=== PATIENT | male | born 1995 | race Caucasian/White ===

== ENCOUNTER 2020-08-18 14:15 | Outpatient (REF) | payer MEDICAID, SELFPAY ==
[2020-08-18 16:24] LABS: Alanine Aminotransferase 14 U/L (0-40); Albumin Level 4.7 g/dL (3.5-5.0); Alkaline Phosphatase 55 U/L (39-117); Anion Gap 19 (12-20); Aspartate Amino Transferase 14 U/L (5-37); Bilirubin Total 0.6 mg/dL (0.0-1.0); Blood Urea Nitrogen 13 mg/dL (9-16); Carbon Dioxide 26 mmol/L (22-29); Chloride 102 mmol/L (96-108); Estimated Glomerular Filt Rate > 60; Glucose Random 91 mg/dL (60-115); Potassium 4.2 mmol/L (3.3-5.1); Sodium 143 mmol/L (135-145); Total Protein 7.4 g/dL (6.5-8.0)
[2020-08-18 16:31] LABS: Calcium 11.3 mg/dL (8.4-10.2)
[2020-08-18 16:43] LABS: Vitamin D 25-OH Total 44.1 ng/mL (>30)
[2020-08-19 11:36] LABS: Calcium, Ionized 5.7 mg/dL (4.8-5.6)
[2020-08-19 13:42] LABS: PTHI 4 pg/mL (14-64)
[2020-08-21 19:27] LABS: Alkaline Phosphatase Bone 7.9 mcg/L (8.4-29.3)
[2020-08-21 21:47] LABS: Prot Elec - Albumin 4.5 g/dL (3.8-4.8); Prot Elec - Alpha1 0.4 g/dL (0.2-0.3); Prot Elec - Alpha2 0.8 g/dL (0.5-0.9); Prot Elec - Beta 1 0.4 g/dL (0.4-0.6); Prot Elec - Beta 2 0.3 g/dL (0.2-0.5); Prot Elec - Total Protein 7.4 g/dL (6.1-8.1)
== END 2020-08-18 14:16 | disposition home or self-care (01) ==
LOC: HO.LAB 14:15
PROVIDERS: PCP Internal Medicine Geriatric Medicine; Visit Provider Internal Medicine
DX: M81.0 Age-related osteoporosis without current pathological fracture (principal); G80.8 Other cerebral palsy; G40.909 Epilepsy, unspecified, not intractable, without status epilepticus; E55.9 Vitamin D deficiency, unspecified; Z88.1 Allergy status to other antibiotic agents; Z99.3 Dependence on wheelchair
CPT/HCPCS: 36415; 80053; 82306; 82330; 83970; 84075; 84100; 84155; 84165; 99202

== ENCOUNTER → 2020-11-07 13:31 | Outpatient (BNVA) | payer MEDICAID, SELFPAY | PROVIDERS: Visit Provider Internal Medicine ==

== ENCOUNTER 2020-12-14 11:42 | Outpatient (REF) | payer MEDICAID, SELFPAY ==
[2020-12-14 13:08] LABS: Alanine Aminotransferase 18 U/L (0-40); Albumin Level 4.4 g/dL (3.5-5.0); Alkaline Phosphatase 49 U/L (39-117); Anion Gap 18 (12-20); Aspartate Amino Transferase 15 U/L (5-37); Bilirubin Total 0.4 mg/dL (0.0-1.0); Blood Urea Nitrogen 18 mg/dL (9-16); Carbon Dioxide 23 mmol/L (22-29); Chloride 110 mmol/L (96-108); Estimated Glomerular Filt Rate > 60; Glucose Random 91 mg/dL (60-115); Phosphorus 3.1 mg/dL (2.7-4.5); Potassium 4.3 mmol/L (3.3-5.1); Sodium 147 mmol/L (135-145); Total Protein 7.3 g/dL (6.5-8.0)
[2020-12-14 13:16] LABS: Calcium 12.4 mg/dL (8.4-10.2)
[2020-12-14 13:23] LABS: Vitamin D 25-OH Total 37.4 ng/mL (>30)
[2020-12-15 10:36] LABS: Calcium (PTHI) 12.1 mg/dL (8.6-10.3); PTHI 13 pg/mL (14-64)
[2020-12-19 10:52] LABS: Vitamin A 94 mcg/dL (38-98)
[2020-12-19 23:17] LABS: Prot Elec - Albumin 4.4 g/dL (3.8-4.8); Prot Elec - Alpha1 0.4 g/dL (0.2-0.3); Prot Elec - Alpha2 0.8 g/dL (0.5-0.9); Prot Elec - Beta 1 0.4 g/dL (0.4-0.6); Prot Elec - Beta 2 0.3 g/dL (0.2-0.5); Prot Elec - Total Protein 7.2 g/dL (6.1-8.1)
[2020-12-21 01:31] LABS: VITAMIN D (1,25 OH) D3 <8 pg/mL; Vit D (1,25-Dihydroxy) Total <8 pg/mL (18-72); Vitamin D (1,25 OH) D2 <8 pg/mL
[2020-12-26 20:01] LABS: Parathyroid Hormone Related Pr 13 pg/mL (11-20)
== END 2020-12-14 11:43 | disposition home or self-care (01) ==
LOC: HO.LAB 11:42
PROVIDERS: Visit Provider Internal Medicine
DX: M81.0 Age-related osteoporosis without current pathological fracture (principal); E83.52 Hypercalcemia
CPT/HCPCS: 36415; 80053; 82306; 82652; 83519; 83970; 84100; 84165; 84590

== ENCOUNTER → 2021-01-18 11:43 | Outpatient (BNVA) | payer MEDICAID, SELFPAY | PROVIDERS: Visit Provider Internal Medicine ==

== ENCOUNTER 2021-01-18 12:22 | Inpatient (IN) | payer MEDICAID, SELFPAY ==
[2021-01-18 12:51] VITALS: BP 136/99; PULSE 115; RESP 18; TEMP 36.6; O2SAT 98; BMI 24.4
--- NOTE | 2021-01-18 14:57 | ED.RECABL ---
HPI - Recheck/Abnormal Lab/Rx General Chief Complaint: Recheck/Abnormal Lab/Rx Stated Complaint: abnormal lab, dehydrated Time Seen by Provider: 01/18/21 14:06 Source: family Mode of arrival: ambulatory Limitations: other (all history from notes and dad) History of Present Illness complaint: abnormal lab Initial visit (ago): day(s) (12/14/20) Initial visit for: other (regular visit) Returns today for: called because of abnormal lab/test (calcium 12.4 though steadily increasing since 2018) Symptoms since prior visit: no new symptoms Context: called for abnormal lab result Associated symptoms: none Related Data Home Medications Medication Instructions Recorded Confirmed cholecalciferol (vitamin D3) 50 50 mcg PO DAILY 08/18/20 11/07/20 mcg (2,000 unit) capsule Previous Rx's Medication Instructions Recorded denosumab 60 mg/mL subcutaneous 60 mg SUBCUT [id number] 1 Days #1 ml 11/09/20 syringe Allergies Allergy/AdvReac Type Severity Reaction Status Date / Time amoxicillin [AMOXICILLIN] Allergy Unknown RASH Verified 11/07/20 13:41 Review of Systems Review of Systems: ROS unable to be obtained due to patient is nonverbal - all history from father and records [facility] Past Medical History Attestation statement: The following information was validated with the patient. Medical History Cerebral palsy Hypercalcemia Osteoporosis Quadriplegia Seizure disorder Vitamin D deficiency Surgical History Gastrointestinal tube present History of back surgery Presence of intrathecal baclofen pump Family History Family History Mother Anemia Father No problems noted. Social History Social History Alcohol intake: never Patient Tobacco Use Status: Never used Tobacco Advance Directives: No Advance Directives Information Provided: No Physical Exam Vital Signs: Vital Signs: Last Vital Signs Temp 97.8 F 01/18/21 12:51 Pulse 115 H 01/18/21 12:51 Resp 18 01/18/21 12:51 BP 136/99 H 01/18/21 12:51 Pulse Ox 98 01/18/21 12:51 Body Mass Index 24.4 Appearance: contracted, non-verbal at his baseline per father No acute distress. Eyes: Pupils equal, round and reactive to light. ENT: Pharynx dry MM Neck: Normal inspection. Neck supple. CVS: tachycardic heart rate and rhythm. Pulses normal. Respiratory: No respiratory distress. Breath sounds normal. Abdomen: Soft feeding tube site c/d/i Skin: Skin warm and dry. pale skin color. Extremities: No lower extremity edema. Neuro: at his baseline per father, contracted, nonverbal, responds to sound and tactile stimuli Course Course Course Narrative: will need admission for dehydration - does not get any free water per father only keto fluids mom aware of admit, plans to bring his feedings MDM - Recheck/Abnormal Lab/Rx MDM Narrative Medical decision making narrative: 25 yo male with hypercalcemia, epilepsy with daily seizures, cerebal palsy with spasticity - nonverbal and feeding tube dependent - on ketogenic diet through [facility] was sent by his oven stripper for dehydration and calcium of 12.4. The dad notes he only receives the special ketogenic diet and no free liquids and that he does not take anything by mouth. At this time will repeat labs and hydrate slow 2L over 2 hours. Dispo per repeat calcium. Lab Data Result diagrams: 01/18/21 15:45 01/18/21 15:45 Labs: Lab Results 01/18/21 01/18/21 01/18/21 Range/Units 15:45 15:45 15:45 WBC 7.6 (4.8-10.8) X10*3/uL RBC 5.03 (4.60-5.80) X10*6/uL Hgb 15.1 (14.0-18.0) g/dl Hct 47.8 (42.0-52.0) % MCV 95.0 (80.0-98.0) fL MCH 30.0 (27.0-33.0) pg MCHC 31.6 (31.0-36.0) g/dl RDW 14.7 (11.0-16.0) % Plt Count 235 (160-400) X10*3/uL MPV 11.4 (9.4-12.4) fL Immature Gran % (Auto) 0.4 (0.0-0.4) % Neut % (Auto) 66.6 (45-73) % Lymph % (Auto) 19.4 L (20-40) % [place] % (Auto) 10.8 (2-11) % Eos % (Auto) 2.4 (0-4) % Baso % (Auto) 0.4 (0-2) % Lymph # (Auto) 1.5 (1.2-4.9) X10*3/uL [place] # (Auto) 0.8 (0.1-1.2) X10*3/uL Eos # (Auto) 0.2 (0.0-0.4) X10*3/uL Baso # (Auto) 0.0 (0.0-0.2) X10*3/uL Abs Immat Gran (auto) 0.03 (0.00-0.03) X10*3/uL Absolute Neuts (auto) 5.05 (2.0-8.3) x10*3/uL Absolute Nucleated RBC 0.000 (0.0-0.012) X10*3/uL Nucleated RBC % (auto) 0.0 (0.0-0.2) /100WBC Sodium 150 H (135-145) mmol/L Potassium 4.2 (3.3-5.1) mmol/L Chloride 110 H (96-108) mmol/L Carbon Dioxide 26 (22-29) mmol/L Anion Gap 18 (12-20) BUN 15 (9-16) mg/dL Creatinine 0.80 (0.5-1.4) mg/dL Estim Creat Clear Calc 99.8 Estimated GFR > 60 Random Glucose 109 (60-115) mg/dL Calcium 12.9 H* (8.4-10.2) mg/dL Magnesium 1.7 (1.6-2.6) mg/dL Total Bilirubin 0.4 (0.0-1.0) mg/dL Direct Bilirubin 0.2 (0.0-0.5) mg/dL AST 15 (5-37) U/L ALT 15 (0-40) U/L Alkaline Phosphatase 47 (39-117) U/L Total Protein 7.6 (6.5-8.0) g/dL Albumin 4.7 (3.5-5.0) g/dL Lipase 22 (8-78) U/L COVID-19 (MANN) Negative (Negative) COVID-19 Clin Com See Note 01/18/21 Range/Units 15:45 WBC (4.8-10.8) X10*3/uL RBC (4.60-5.80) X10*6/uL Hgb (14.0-18.0) g/dl Hct (42.0-52.0) % MCV (80.0-98.0) fL MCH (27.0-33.0) pg MCHC (31.0-36.0) g/dl RDW (11.0-16.0) % Plt Count (160-400) X10*3/uL MPV (9.4-12.4) fL Immature Gran % (Auto) (0.0-0.4) % Neut % (Auto) (45-73) % Lymph % (Auto) (20-40) % [place] % (Auto) (2-11) % Eos % (Auto) (0-4) % Baso % (Auto) (0-2) % Lymph # (Auto) (1.2-4.9) X10*3/uL [place] # (Auto) (0.1-1.2) X10*3/uL Eos # (Auto) (0.0-0.4) X10*3/uL Baso # (Auto) (0.0-0.2) X10*3/uL Abs Immat Gran (auto) (0.00-0.03) X10*3/uL Absolute Neuts (auto) (2.0-8.3) x10*3/uL Absolute Nucleated RBC (0.0-0.012) X10*3/uL Nucleated RBC % (auto) (0.0-0.2) /100WBC Sodium (135-145) mmol/L Potassium (3.3-5.1) mmol/L Chloride (96-108) mmol/L Carbon Dioxide (22-29) mmol/L Anion Gap (12-20) BUN (9-16) mg/dL Creatinine (0.5-1.4) mg/dL Estim Creat Clear Calc Estimated GFR Random Glucose (60-115) mg/dL Calcium Cancelled (8.4-10.2) mg/dL Magnesium (1.6-2.6) mg/dL Total Bilirubin (0.0-1.0) mg/dL Direct Bilirubin (0.0-0.5) mg/dL AST (5-37) U/L ALT (0-40) U/L Alkaline Phosphatase (39-117) U/L Total Protein (6.5-8.0) g/dL Albumin (3.5-5.0) g/dL Lipase (8-78) U/L COVID-19 (MANN) (Negative) COVID-19 Clin Com Discharge Plan Discharge Clinical Impression: Hypercalcemia, Acute hypernatremia, Acute dehydration Patient Disposition: Admitted As Inpatient Prescriptions: No Action denosumab 60 mg/mL syringe 60 mg subcut [id number] 1 Days Qty: 1 RF: 2 cholecalciferol (vitamin D3) 50 mcg (2,000 unit) capsule 50 mcg PO DAILY RF: 0
[2021-01-18 15:52] LABS: MANUAL DIFF FLAG NO
[2021-01-18] MEDS: 0.9 % Sodium Chloride 1,000 ML 999 ML IVCONT (15:53)
[2021-01-18 15:56] LABS: Basophils Percent Auto 0.4 % (0-2); Eosinophils Absolute Auto 0.2 X10*3/uL (0.0-0.4); Eosinophils Percent Auto 2.4 % (0-4); Hematocrit 47.8 % (42.0-52.0); Hemoglobin 15.1 g/dl (14.0-18.0); Imm Gran Abs Auto 0.03 X10*3/uL (0.00-0.03); Imm Gran Pct Auto 0.4 % (0.0-0.4); Lymphocytes Absolute Auto 1.5 X10*3/uL (1.2-4.9); Lymphocytes Percent Auto 19.4 % (20-40); Mean Corpuscular HGB Conc 31.6 g/dl (31.0-36.0); Mean Platelet Volume 11.4 fL (9.4-12.4); Monocytes Absolute Auto 0.8 X10*3/uL (0.1-1.2); Monocytes Percent Auto 10.8 % (2-11); Neutrophils Absolute Auto 5.05 x10*3/uL (2.0-8.3); Neutrophils Percent Auto 66.6 % (45-73); Platelet Count 235 X10*3/uL (160-400); Red Blood Count 5.03 X10*6/uL (4.60-5.80); Red Cell Distribution Width 14.7 % (11.0-16.0); White Blood Count 7.6 X10*3/uL (4.8-10.8)
[2021-01-18 16:14] LABS: COVID-19 Test Negative (Negative)
[2021-01-18 16:39] LABS: Alanine Aminotransferase 15 U/L (0-40); Albumin Level 4.7 g/dL (3.5-5.0); Alkaline Phosphatase 47 U/L (39-117); Anion Gap 18 (12-20); Aspartate Amino Transferase 15 U/L (5-37); Bilirubin Direct 0.2 mg/dL (0.0-0.5); Bilirubin Total 0.4 mg/dL (0.0-1.0); Blood Urea Nitrogen 15 mg/dL (9-16); Calcium 12.9 mg/dL (8.4-10.2); Carbon Dioxide 26 mmol/L (22-29); Chloride 110 mmol/L (96-108); Creatinine Clr Calc Pharmacy 99.8; Estimated Glomerular Filt Rate > 60; Glucose Random 109 mg/dL (60-115); Lipase 22 U/L (8-78); Magnesium 1.7 mg/dL (1.6-2.6); Potassium 4.2 mmol/L (3.3-5.1); Sodium 150 mmol/L (135-145); Total Protein 7.6 g/dL (6.5-8.0)
[2021-01-18 17:56] VITALS: BP 137/96; PULSE 132; RESP 16; O2SAT 96
[2021-01-18 18:00] VITALS: BP 134/85; PULSE 136; RESP 15; O2SAT 96
--- NOTE | 2021-01-18 18:42 | PHA.MEDREC ---
Pharmacy Consult ? Medication Reconciliation Pharmacy has completed the medication reconciliation. nonfarm animal caretaker had a list of medications on his phone. Patient was have Ketovite infused, and has more with him. Lisa Pringle, FilipeD
[2021-01-18] MEDS: 0.9 % Sodium Chloride 1,000 ML 999 ML IV (20:49)
[2021-01-18 22:00] VITALS: BP 124/71; PULSE 134; RESP 18; TEMP 37.1; O2SAT 95
--- NOTE | 2021-01-18 22:48 | MHC.CM.PN ---
CM met with pt step-father and time study analyst [employer]OUS[employer] through [employer]. No IMM necessary. Pt is very well kept. Pt has C.P, quadriplegia, epilepsy. Pt is blind, non-verbal and has a g-tube for feeding. Pt guardian is his mother, Shari Davis ([phone]). Guardianship papers are not on file. No MOLST on file. Pt lives with his mother and step-father. Pt has 2 wheelchairs, hospital bed, handicapped bathroom accessible, андрей lift and van adaptations. Pt is NPO, feeding tube dependent and is on a ketogenic diet. D/C plan is home with continued services. Transportation to be arranged. CM to follow for d/c needs.
[2021-01-18] MEDS: Sodium Chloride 0.45 % 1,000 ML 200 ML IVCONT (23:56)
[2021-01-19] VITALS (8 sets, daily range): BP systolic 118–145; BP diastolic 78–99; PULSE 125–160; RESP 14–108; TEMP 36.3–37.2; O2SAT 95–98; BMI 24.4
[2021-01-19] MEDS: Cholecalciferol (Vitamin D3) 25 MCG TABLET G-TUBE ×4 (00:35→21:20)
[2021-01-19] MEDS: Enoxaparin Sodium 40 MG/0.4 ML SYRINGE SUBCUT ×2 (00:35→22:50)
[2021-01-19] MEDS: 0.9 % Sodium Chloride Flush 3 ML SYRINGE IVFLUSH ×3 (00:36→16:48)
[2021-01-19 01:02] LABS: Anion Gap 23 (12-20); Blood Urea Nitrogen 16 mg/dL (9-16); Calcium 11.1 mg/dL (8.4-10.2); Carbon Dioxide 20 mmol/L (22-29); Chloride 117 mmol/L (96-108); Estimated Glomerular Filt Rate > 60; Glucose Random 114 mg/dL (60-115); Potassium 6.5 mmol/L (3.3-5.1); Sodium 153 mmol/L (135-145)
[2021-01-19 02:13] LABS: Potassium 5.8 mmol/L (3.3-5.1)
[2021-01-19 02:14] LABS: Anion Gap 21 (12-20); Blood Urea Nitrogen 14 mg/dL (9-16); Carbon Dioxide 20 mmol/L (22-29); Chloride 116 mmol/L (96-108); Creatinine Clr Calc Pharmacy 109.3; Estimated Glomerular Filt Rate > 60; Glucose Random 110 mg/dL (60-115); Sodium 151 mmol/L (135-145)
--- NOTE | 2021-01-19 04:46 | P.HPHOSP_ITS ---
History of Present Illness Date of Service: 01/18/21 Chief Complaint: Abnormal labs This is a 25-year-old male with past medical history of cerebral palsy, osteoporosis, quadriplegia, seizure disorder, who comes into the hospital brought in by his stepfather due to hypercalcemia. According to the stepfather patient is chronically wheelchair-bound/bed-bound and has been recently changed to ketogenic only diet, he does not take any other p.o. intake, has not been drinking any water or any liquids besides the ketogenic tube feeds. He was taken to his doctor today for routine labs, found to have hypercalcemia therefore sent to the hospital for further management. According to the stepfather patient has not had any other acute issues with no changes to his mental status or medical home health. Unable to review of system is patient is nonverbal at baseline Vitals on arrival show tachycardia but according to the stepfather patient's chronically tachycardic with his heart rate is always being high, no other abnormal vitals Labs are significant for WBC count of 7.6, hemoglobin of 15.1, sodium of 150, po tassium 4.2, , chloride of 110, calcium of 12.9 which has been trending up since March of 2018, Patient started on IV fluids and will be admitted further manage Review of Systems Review of Systems: Yes Unobtainable due to mental condition [facility] Medical History Cerebral palsy Hypercalcemia Osteoporosis Quadriplegia Seizure disorder Vitamin D deficiency Family History Mother Anemia Father No problems noted. Pertinent family history: No pertinent medical history Surgical History Gastrointestinal tube present History of back surgery Presence of intrathecal baclofen pump Social History Alcohol intake: never Patient Tobacco Use Status: Never used Tobacco Use of substances other than those prescribed or required for medical reasons: No Advance Directives: No Advance Directives Information Provided: No service: No Current occupational status: disabled Meds Allergies Allergy/AdvReac Type Severity Reaction Status Date / Time amoxicillin [AMOXICILLIN] Allergy Unknown RASH Verified 11/07/20 13:41 Active Medications: Current Medications Acetaminophen (Acetaminophen Supp 650 Mg Supp.Rect) 650 mg AK Q6H PRN PRN Reason: Pain, Mild (Pain Scale 1-3) Albuterol Sulfate (Albuterol Sulfate (0.083%) 2.5 Mg/3 Ml Vial.Neb) 2.5 mg INHALE Q4H PRN PRN Reason: Wheezing Enoxaparin Sodium (Enoxaparin Sodium 40 Mg/0.4 Ml Syringe) 40 mg SUBCUT Q24H [facility] Last Admin: 01/19/21 00:35 Dose: 40 mg Documented by: Sodium Chloride () 1,000 mls @ 200 mls/hr IVCONT .Q5H [facility] Last Admin: 01/18/21 23:56 Dose: 200 mls/hr Documented by: Melatonin (Melatonin 3 Mg Tablet) 3 mg G-TUBE BEDTIME [facility] Multi-Ingred Cream/Lotion/Oil/Oint (Mineral Oil/Petrolatum,White 106 Gm Tube) 1 appl TOPICAL BID [facility] Non-Formulary Medication (Baclofen) 80 mcg INTRATHECA DAILY [facility] Non-Formulary Medication (Diazepam) 5 mg AK DAILY PRN PRN Reason: Seizures Non-Formulary Medication (Ketovie) 0 dose IV .COMPLEX [facility] Non-Formulary Medication (Levocarnitine) 660 mg G-TUBE BID [facility] Non-Formulary Medication (Sodium Bicarb) 28 meq G-TUBE DAILY [facility] Omeprazole (Omeprazole 20 Mg/10 Ml Susp.Recon) 30 mg G-TUBE DAILY@0630 [facility] Ondansetron HCl (Ondansetron Hcl 4 Mg/2 Ml Vial) 4 mg IVPUSH Q8H PRN PRN Reason: Nausea and Vomiting Pharmacy Consult (Consult Rx Perform Med Rec) 1 each MISCELLANE ONCE PRN PRN Reason: Consult order Polyethylene Glycol (Polyethylene Glycol 3350 17 Gm Powd.Pack) 17 gm G-TUBE DAILY [facility] Sodium Chloride (0.9 % Sodium Chloride Flush 3 Ml Syringe) 3 ml IVFLUSH QSHIFT [facility] Last Admin: 01/19/21 00:36 Dose: 3 ml Documented by: Vitamin D (Cholecalciferol (Vitamin D3) 25 Mcg Tablet) 25 mcg G-TUBE TID [facility] Last Admin: 01/19/21 00:35 Dose: 25 mcg Documented by: Home Medications Medication Instructions Recorded Confirmed Last Taken Type KetoVie See Rx Instructions .ROUTE .COMPLEX 01/18/21 01/18/21 01/18/21 History Sodium Bicarb 28 meq G-TUBE DAILY 01/18/21 01/18/21 Unknown History albuterol sulfate 5 mg/mL(0.5 %) 5 mg INHALATION Q4H PRN 01/18/21 01/18/21 Unknown History solution for nebulization baclofen 500 mcg/mL intrathecal 80 mcg INTRATHECAL DAILY 01/18/21 01/18/21 Unknown History solution cholecalciferol (vitamin D3) 25 25 mcg FEEDING TUBE TID 01/18/21 01/18/21 Unknown History mcg (1,000 unit) tablet (Vitamin D3) diazepam 10 mg rectal kit 5 mg AK DAILY PRN 01/18/21 01/18/21 Unknown History lanolin alcohols-mineral 1 appl TOPICAL BID 01/18/21 01/18/21 Unknown History oil-w.petrolatum-ceresin topical cream (Eucerin) lansoprazole 30 mg delayed 30 mg FEEDING TUBE DAILY 01/18/21 01/18/21 Unknown History release,disintegrating tablet levocarnitine 330 mg tablet 660 mg FEEDING TUBE BID 01/18/21 01/18/21 Unknown History melatonin 1 mg tablet 1 mg FEEDING TUBE BEDTIME 01/18/21 01/18/21 Unknown History multivitamin 1 tab FEEDING TUBE DAILY 01/18/21 01/18/21 Unknown History polyethylene glycol 3350 17 17 g FEEDING TUBE DAILY 01/18/21 01/18/21 Unknown History gram/dose oral powder Physical Exam Vital Signs and Narrative: Vital Signs: Last Vital Signs Temp 97.9 F 01/19/21 00:00 Pulse 127 H 01/19/21 00:00 Resp 14 01/19/21 00:00 BP 123/79 01/19/21 00:00 Pulse Ox 98 01/19/21 00:00 Body Mass Index 24.4 Const: Other: Patient appears comfortable, no apparent distress General: no acute distress Eyes: Other: Blind in both eyes General: appearance normal, both eyes and all related structures Resp: Effort & Inspection: normal respiratory effort Cardio: Rate: regular rate Rhythm: regular rhythm GI: Palpation (GI): Soft to palpation Auscultation: normal bowel sounds Skin: General skin exam: no rashes or lesions noted Extrem: General: Yes normal to inspection and Yes no pedal edema Results Labs CBC and Chem 7: 01/18/21 15:45 01/19/21 01:47 Labs: Laboratory Results - last 24 hr 01/18/21 01/18/21 01/18/21 15:45 15:45 15:45 MCV 95.0 MCH 30.0 MCHC 31.6 RDW 14.7 Plt Count 235 MPV 11.4 Immature Gran % (Auto) 0.4 Neut % (Auto) 66.6 Lymph % (Auto) 19.4 L [place] % (Auto) 10.8 Eos % (Auto) 2.4 Baso % (Auto) 0.4 Lymph # (Auto) 1.5 [place] # (Auto) 0.8 Eos # (Auto) 0.2 Baso # (Auto) 0.0 Abs Immat Gran (auto) 0.03 Absolute Neuts (auto) 5.05 Absolute Nucleated RBC 0.000 Nucleated RBC % (auto) 0.0 Anion Gap 18 Estim Creat Clear Calc 99.8 Estimated GFR > 60 Random Glucose 109 Calcium 12.9 H* Magnesium 1.7 Total Bilirubin 0.4 Direct Bilirubin 0.2 AST 15 ALT 15 Alkaline Phosphatase 47 Total Protein 7.6 Albumin 4.7 Lipase 22 COVID-19 (MANN) Negative COVID-19 Clin Com See Note 01/18/21 01/19/21 01/19/21 15:45 00:32 01:47 MCV MCH MCHC RDW Plt Count MPV Immature Gran % (Auto) Neut % (Auto) Lymph % (Auto) [place] % (Auto) Eos % (Auto) Baso % (Auto) Lymph # (Auto) [place] # (Auto) Eos # (Auto) Baso # (Auto) Abs Immat Gran (auto) Absolute Neuts (auto) Absolute Nucleated RBC Nucleated RBC % (auto) Anion Gap 23 H 21 H Estim Creat Clear Calc 105.0 109.3 Estimated GFR > 60 > 60 Random Glucose 114 110 Calcium Cancelled 11.1 H D 11.0 H Magnesium Total Bilirubin Direct Bilirubin AST ALT Alkaline Phosphatase Total Protein Albumin Lipase COVID-19 (MANN) COVID-19 Clin Com Assessment and Plan (1) Acute hypernatremia: Status: Acute (2) Acute dehydration: Status: Acute (3) Hypercalcemia: Status: Acute (4) Electrolyte abnormality: Status: Acute 25-year-old male with past medical history of cerebral palsy, nonverbal, blind, deaf, wheelchair-bound who presents to the hospital due to abnormal labs specifically hypernatremia and hypercalcemia # hypercalcemia - most likely secondary to dehydration - patient on a strict ketogenic diet with no other p.o. intake including no free water - will start him on IV fluid - follow calcium level - nephrology cons # hypernatremia - also most likely secondary to dehydration - started on IV fluid - follow BMP - nephrology consult # hyperkalemia - possibly secondary to hemolysis - repeat is still elevated at 5.8 - will start him on insulin, glucose, Lasix, Kayexalate - follow BMP # tachycardia - no evidence of acute infection - chronic according to stepfather at bedside who is his buncher hand # diet - according to his. Father patient has been placed on ketogenic diet by [place] [facility] - may need re-evaluation of diet prior to discharge DVT prophylaxis: Lovenox Quality Stroke Does the patient have a stroke diagnosis?: No VTE Prior VTE?: No VTE Risk Level:: Medical - moderate - high VTE Device Contraindication: Treatment Not Indicated VTE Drug Contraindication: N/A - Med Ordered
[2021-01-19] MEDS: Furosemide 20 MG/2 ML VIAL IVPUSH (05:27)
[2021-01-19] MEDS: Lactated Ringers 1,000 ML 200 ML IVCONT ×4 (05:34→20:28)
[2021-01-19] MEDS: Insulin Lispro 100 UNIT/ML 3 ML VIAL SUBCUT (05:34)
[2021-01-19] MEDS: Sodium Polystyrene Sulfon/Sorb 15 GM/60 ML ORAL.SUSP 30 GM PR (05:47)
[2021-01-19 08:55] LABS: Basophils Percent Auto 0.4 % (0-2); Imm Gran Abs Auto 0.02 X10*3/uL (0.00-0.03); Imm Gran Pct Auto 0.3 % (0.0-0.4); MANUAL DIFF FLAG SCAN; Mean Corpuscular Hemoglobin 30.2 pg (27.0-33.0); Monocytes Absolute Auto 0.9 X10*3/uL (0.1-1.2); PLT CLUMP 1; Red Cell Distribution Width 14.6 % (11.0-16.0); SCAN SMEAR FLAG 1
[2021-01-19 08:57] LABS: Eosinophils Absolute Auto 0.2 X10*3/uL (0.0-0.4); Eosinophils Percent Auto 3.4 % (0-4); Hemoglobin 13.5 g/dl (14.0-18.0); Lymphocytes Percent Auto 27.8 % (20-40); Mean Corpuscular HGB Conc 32.1 g/dl (31.0-36.0); Neutrophils Absolute Auto 3.95 x10*3/uL (2.0-8.3); Neutrophils Percent Auto 55.1 % (45-73); Red Blood Count 4.47 X10*6/uL (4.60-5.80); White Blood Count 7.2 X10*3/uL (4.8-10.8)
[2021-01-19 09:16] LABS: Alanine Aminotransferase 13 U/L (0-40); Albumin Level 4.2 g/dL (3.5-5.0); Alkaline Phosphatase 59 U/L (39-117); Anion Gap 13 (12-20); Aspartate Amino Transferase 15 U/L (5-37); Bilirubin Total 0.3 mg/dL (0.0-1.0); Blood Urea Nitrogen 10 mg/dL (9-16); Calcium 11.9 mg/dL (8.4-10.2); Carbon Dioxide 32 mmol/L (22-29); Chloride 108 mmol/L (96-108); Creatinine Clr Calc Pharmacy 115.7; Estimated Glomerular Filt Rate > 60; Glucose Random 91 mg/dL (60-115); Potassium 3.9 mmol/L (3.3-5.1); Sodium 149 mmol/L (135-145); Total Protein 6.8 g/dL (6.5-8.0)
[2021-01-19 09:19] LABS: Platelet Count 163 X10*3/uL (160-400)
[2021-01-19 09:20] LABS: SLIDE REVIEW VERIFIED
[2021-01-19] MEDS: polyethylene glycoL 3350 17 GM POWD.PACK G-TUBE (11:49)
--- NOTE | 2021-01-19 12:51 | MHC.CM.PN ---
Per ROUNDS discussion, Patient is not yet medically cleared for dc. Home/resume services is the goal for dc and CM will follow for possible need to adjust the dc plan.
--- NOTE | 2021-01-19 15:59 | PM.CNNEP ---
History of Present Illness Reason for Consult Consult date: 01/19/21 Reason for consult: Hypernatremia and Hypercalcemia Chief Complaint Chief complaint: Hypercalcemia, Hypernatremia, dehydration History of Present Illness Narrative: Zoltan is a 25-year-old male with cerebral palsy among other medical issues who comes into the hospital brought in by his stepfather due to hypercalcemia.? patient is chronically wheelchair-bound/bed-bound and has been recently changed to ketogenic only diet. He does not take any other p.o. intake, has not been drinking any water or any liquids besides the ketogenic tube feeds.? He was taken to his doctor today for routine labs, found to have hypercalcemia therefore sent to the hospital for further management.?He was also found to have hypernatremia. Nephrology has been consulted to assist in his clinical care during his current hospital stay Review of Systems Review of Systems Yes all other systems are reviewed and are negative PMFSH Past Medical History Medical History Cerebral palsy Hypercalcemia Osteoporosis Quadriplegia Seizure disorder Vitamin D deficiency Family History Family History Mother Anemia Father No problems noted. Surgical History Surgical History Gastrointestinal tube present History of back surgery Presence of intrathecal baclofen pump Social History Social History Household Members: Family and Children Household Members Other:: twin 3 y.o sisters, mother, grandmother Housing: Apartment Housing Other:: handicap accessible Do you presently have visiting nurse or other home services: Yes ([facility] 52 hr/wk) Alcohol intake: never Patient Tobacco Use Status: Never used Tobacco service: No Current occupational status: disabled Meds Allergies Allergy/AdvReac Type Severity Reaction Status Date / Time amoxicillin [AMOXICILLIN] Allergy Unknown RASH Verified 11/07/20 13:41 Active Medications: Current Medications Acetaminophen (Acetaminophen Supp 650 Mg Supp.Rect) 650 mg [place] Q6H PRN PRN Reason: Pain, Mild (Pain Scale 1-3) Albuterol Sulfate (Albuterol Sulfate (0.083%) 2.5 Mg/3 Ml Vial.Neb) 2.5 mg INHALE Q4H PRN PRN Reason: Wheezing Enoxaparin Sodium (Enoxaparin Sodium 40 Mg/0.4 Ml Syringe) 40 mg SUBCUT Q24H [facility] Last Admin: 01/19/21 00:35 Dose: 40 mg Documented by: Lactated Ringer's (Lr) 1,000 mls @ 200 mls/hr IVCONT .Q5H [facility] Last Admin: 01/19/21 15:29 Dose: 200 mls/hr Documented by: Melatonin (Melatonin 3 Mg Tablet) 3 mg G-TUBE BEDTIME [facility] Multi-Ingred Cream/Lotion/Oil/Oint (Mineral Oil/Petrolatum,White 106 Gm Tube) 1 appl TOPICAL BID [facility] Last Admin: 01/19/21 11:54 Dose: Not Given Documented by: Non-Formulary Medication (Baclofen) 80 mcg INTRATHECA DAILY [facility] Non-Formulary Medication (Diazepam) 5 mg NE DAILY PRN PRN Reason: Seizures Non-Formulary Medication (Ketovie) 0 dose IV .COMPLEX [facility] Non-Formulary Medication (Levocarnitine) 660 mg G-TUBE BID [facility] Non-Formulary Medication (Sodium Bicarb) 28 meq G-TUBE DAILY [facility] Omeprazole (Omeprazole 20 Mg/10 Ml Susp.Recon) 30 mg G-TUBE DAILY@0630 [facility] Last Admin: 01/19/21 11:53 Dose: 30 mg Documented by: Ondansetron HCl (Ondansetron Hcl 4 Mg/2 Ml Vial) 4 mg IVPUSH Q8H PRN PRN Reason: Nausea and Vomiting Pharmacy Consult (Consult Rx Perform Med Rec) 1 each MISCELLANE ONCE PRN PRN Reason: Consult order Polyethylene Glycol (Polyethylene Glycol 3350 17 Gm Powd.Pack) 17 gm G-TUBE DAILY [facility] Last Admin: 01/19/21 11:49 Dose: 17 gm Documented by: Sodium Chloride (0.9 % Sodium Chloride Flush 3 Ml Syringe) 3 ml IVFLUSH QSHIFT [facility] Last Admin: 01/19/21 10:24 Dose: 3 ml Documented by: Vitamin D (Cholecalciferol (Vitamin D3) 25 Mcg Tablet) 25 mcg G-TUBE TID [facility] Last Admin: 01/19/21 11:50 Dose: 25 mcg Documented by: Home Medications Medication Instructions Recorded Confirmed Last Taken Type KetoVie See Rx Instructions .ROUTE .COMPLEX 01/18/21 01/18/2101/18/21 History Sodium Bicarb 28 meq G-TUBE DAILY 01/18/21 01/18/21 Unknown History albuterol sulfate 5 mg/mL(0.5 %) 5 mg INHALATION Q4H PRN 01/18/21 01/18/21 Unknown History solution for nebulization baclofen 500 mcg/mL intrathecal 80 mcg INTRATHECAL DAILY 01/18/21 01/18/21 Unknown History solution cholecalciferol (vitamin D3) 25 25 mcg FEEDING TUBE TID 01/18/21 01/18/21 Unknown History mcg (1,000 unit) tablet (Vitamin D3) diazepam 10 mg rectal kit 5 mg NE DAILY PRN 01/18/21 01/18/21 Unknown History lanolin alcohols-mineral 1 appl TOPICAL BID 01/18/21 01/18/21 Unknown History oil-w.petrolatum-ceresin topical cream (Eucerin) lansoprazole 30 mg delayed 30 mg FEEDING TUBE DAILY 01/18/21 01/18/21 Unknown History release,disintegrating tablet levocarnitine 330 mg tablet 660 mg FEEDING TUBE BID 01/18/21 01/18/21 Unknown History melatonin 1 mg tablet 1 mg FEEDING TUBE BEDTIME 01/18/21 01/18/21 Unknown History multivitamin 1 tab FEEDING TUBE DAILY 01/18/21 01/18/21 Unknown History polyethylene glycol 3350 17 17 g FEEDING TUBE DAILY 01/18/21 01/18/21 Unknown History gram/dose oral powder Physical Exam Vital Signs: Last Vital Signs Temp 97.3 F 01/19/21 15:26 Pulse 132 H 01/19/21 15:26 Resp 20 01/19/21 15:26 BP 131/97 H 01/19/21 15:26 Pulse Ox 97 01/19/21 15:26 Body Mass Index 24.4 Const General: no acute distress Neck Neck: Yes supple Resp Auscultation: diminished lung sounds Cardio Rate: regular rate Rhythm: regular rhythm GI Palpation (GI): Soft to palpation Skin General skin exam: no rashes or lesions noted Extrem General: No edema Results Lab Results Result Diagrams: 01/19/21 07:53 01/19/21 07:53 Lab results: Chemistry 01/18/21 01/18/21 01/19/21 15:45 15:45 00:32 Sodium 150 H 153 H Potassium 4.2 6.5 H* D Carbon Dioxide 26 20 L BUN 15 16 Creatinine 0.80 0.76 Calcium 12.9 H* Cancelled 11.1 H D 01/19/21 01/19/21 01:47 07:53 Sodium 151 H 149 H Potassium 5.8 H 3.9 D Carbon Dioxide 20 L 32 H BUN 14 10 Creatinine 0.73 0.69 Calcium 11.0 H 11.9 H D Hematology 01/18/21 01/19/21 15:45 07:53 WBC 7.6 7.2 Hgb 15.1 13.5 L Plt Count 235 163 D Assessment and Plan (1) Acute hypernatremia: Status: Acute Has hypercalcemia likely due to immobility Still needs further W/U for hypercalcemia Endocrinology has seen patient 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 Shall closely follow up Procedures Date of Service Date of Service: 01/19/21
--- NOTE | 2021-01-19 16:34 | P.PNIM_ITS ---
Subjective Subjective Date of Service: 01/19/21 Interval History: No acute events overnight Review of Systems Nonverbal all clean from staff. Physical Exam Vital Signs: Vital Signs: Last Vital Signs Temp 97.3 F 01/19/21 15:26 Pulse 132 H 01/19/21 15:26 Resp 20 01/19/21 15:26 BP 131/97 H 01/19/21 15:26 Pulse Ox 97 01/19/21 15:26 Body Mass Index 24.4 Const: Other: Alert nonverbal HENMT: Other: Membranes moist Resp: Other: Clear to auscultation bilaterally no rales rhonchi or wheezes Cardio: Other: Tachy; no S4; positive S1-S2; no S3 murmurs of for gallops GI: Other: Soft slightly distended normoactive bowel sounds. Baclofen pump right lower quadrant. G-tube site clean dry and intact Extrem: Other: Contracted Objective Data Active Medications Acetaminophen (Acetaminophen Supp 650 Mg Supp.Rect) 650 mg AK Q6H PRN PRN Reason: Pain, Mild (Pain Scale 1-3) Albuterol Sulfate (Albuterol Sulfate (0.083%) 2.5 Mg/3 Ml Vial.Neb) 2.5 mg INHALE Q4H PRN PRN Reason: Wheezing Enoxaparin Sodium (Enoxaparin Sodium 40 Mg/0.4 Ml Syringe) 40 mg SUBCUT Q24H [facility] Last Admin: 01/19/21 00:35 Dose: 40 mg Documented by: SHEA Lactated Ringer's (Lr) 1,000 mls @ 200 mls/hr IVCONT .Q5H [facility] Last Admin: 01/19/21 15:29 Dose: 200 mls/hr Documented by: DARRYL Melatonin (Melatonin 3 Mg Tablet) 3 mg G-TUBE BEDTIME [facility] Multi-Ingred Cream/Lotion/Oil/Oint (Mineral Oil/Petrolatum,White 106 Gm Tube) 1 appl TOPICAL BID [facility] Last Admin: 01/19/21 11:54 Dose: Not Given Documented by: DARRYL Non-Admin Reason: Med Not Available Non-Formulary Medication (Baclofen) 80 mcg INTRATHECA DAILY [facility] Non-Formulary Medication (Diazepam) 5 mg AK DAILY PRN PRN Reason: Seizures Non-Formulary Medication (Ketovie) 0 dose IV .COMPLEX SORIN Non-Formulary Medication (Levocarnitine) 660 mg G-TUBE BID [facility] Non-Formulary Medication (Sodium Bicarb) 28 meq G-TUBE DAILY [facility] Omeprazole (Omeprazole 20 Mg/10 Ml Susp.Recon) 30 mg G-TUBE DAILY@0630 [facility] Last Admin: 01/19/21 11:53 Dose: 30 mg Documented by: DARRYL Ondansetron HCl (Ondansetron Hcl 4 Mg/2 Ml Vial) 4 mg IVPUSH Q8H PRN PRN Reason: Nausea and Vomiting Pharmacy Consult (Consult Rx Perform Med Rec) 1 each MISCELLANE ONCE PRN PRN Reason: Consult order Polyethylene Glycol (Polyethylene Glycol 3350 17 Gm Powd.Pack) 17 gm G-TUBE DAILY [facility] Last Admin: 01/19/21 11:49 Dose: 17 gm Documented by: DARRYL Sodium Chloride (0.9 % Sodium Chloride Flush 3 Ml Syringe) 3 ml IVFLUSH QSHIFT [facility] Last Admin: 01/19/21 10:24 Dose: 3 ml Documented by: DARRYL Vitamin D (Cholecalciferol (Vitamin D3) 25 Mcg Tablet) 25 mcg G-TUBE TID [facility] Last Admin: 01/19/21 11:50 Dose: 25 mcg Documented by: DARRYL Labs CBC & Chem 7: 01/19/21 07:53 01/19/21 07:53 Labs: Laboratory Results - last 24 hr 01/18/21 01/18/21 01/19/21 15:45 15:45 00:32 MCV MCH MCHC RDW Plt Count MPV Immature Gran % (Auto) Neut % (Auto) Lymph % (Auto) [place] % (Auto) Eos % (Auto) Baso % (Auto) Lymph # (Auto) [place] # (Auto) Eos # (Auto) Baso # (Auto) Abs Immat Gran (auto) Absolute Neuts (auto) Absolute Nucleated RBC Nucleated RBC % (auto) Smear Tech's Comments Anion Gap 18 23 H Estim Creat Clear Calc 99.8 105.0 Estimated GFR > 60 > 60 Random Glucose 109 114 Calcium 12.9 H* Cancelled 11.1 H D Magnesium 1.7 Total Bilirubin 0.4 Direct Bilirubin 0.2 AST 15 ALT 15 Alkaline Phosphatase 47 Total Protein 7.6 Albumin 4.7 Lipase 22 01/19/21 01/19/21 01/19/21 01:47 07:53 07:53 MCV 94.0 MCH 30.2 MCHC 32.1 RDW 14.6 Plt Count 163 D MPV Not Reportable Immature Gran % (Auto) 0.3 Neut % (Auto) 55.1 Lymph % (Auto) 27.8 [place] % (Auto) 13.0 H Eos % (Auto) 3.4 Baso % (Auto) 0.4 Lymph # (Auto) 2.0 [place] # (Auto) 0.9 Eos # (Auto) 0.2 Baso # (Auto) 0.0 Abs Immat Gran (auto) 0.02 Absolute Neuts (auto) 3.95 Absolute Nucleated RBC 0.000 Nucleated RBC % (auto) 0.0 Smear Tech's Comments VERIFIED Anion Gap 21 H 13 Estim Creat Clear Calc 109.3 115.7 Estimated GFR > 60 > 60 Random Glucose 110 91 Calcium 11.0 H 11.9 H D Magnesium Total Bilirubin 0.3 Direct Bilirubin AST 15 ALT 13 Alkaline Phosphatase 59 D Total Protein 6.8 Albumin 4.2 Lipase Assessment and Plan (1) Hypercalcemia: Status: Acute Assessment and Plan: 25-year-old male with past medical history of cerebral palsy, hypercalcemia secondary to immobility; admitted for treatment of hypercalcemia found in outpatient lab 1. 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 3. Hyperkalemia Normalized with IV fluids Follow labs in the morning 4. Cerebral palsy Continue keto Vie3:1; 240 mL/hr 5051-5785; 120ml/hr [id number] DVT prophylaxis: Lovenox Quality Stroke Does the patient have a stroke diagnosis?: No VTE Prior VTE?: No VTE Risk Level:: Medical - moderate - high VTE Device Contraindication: Treatment Not Indicated VTE Drug Contraindication: N/A - Med Ordered
[2021-01-19] MEDS: Melatonin 3 MG TABLET G-TUBE (21:20)
[2021-01-20] MEDS: Lactated Ringers 1,000 ML 200 ML IVCONT ×2 (01:31→05:51)
[2021-01-20 04:00] VITALS: BP 130/65; PULSE 136; RESP 18; TEMP 37.4; O2SAT 96
[2021-01-20 06:21] LABS: MANUAL DIFF FLAG NO
[2021-01-20 06:52] LABS: Basophils Percent Auto 0.2 % (0-2); Eosinophils Absolute Auto 0.2 X10*3/uL (0.0-0.4); Eosinophils Percent Auto 1.7 % (0-4); Hematocrit 35.7 % (42.0-52.0); Hemoglobin 11.7 g/dl (14.0-18.0); Imm Gran Abs Auto 0.04 X10*3/uL (0.00-0.03); Imm Gran Pct Auto 0.4 % (0.0-0.4); Lymphocytes Absolute Auto 1.8 X10*3/uL (1.2-4.9); Mean Corpuscular HGB Conc 32.8 g/dl (31.0-36.0); Mean Corpuscular Hemoglobin 30.1 pg (27.0-33.0); Mean Corpuscular Volume 91.8 fL (80.0-98.0); Mean Platelet Volume 12.4 fL (9.4-12.4); Monocytes Percent Auto 10.7 % (2-11); Neutrophils Absolute Auto 6.5 x10*3/uL (2.0-8.3); Platelet Count 159 X10*3/uL (160-400); Red Blood Count 3.89 X10*6/uL (4.60-5.80); Red Cell Distribution Width 14.1 % (11.0-16.0); White Blood Count 9.5 X10*3/uL (4.8-10.8)
[2021-01-20 07:06] LABS: Alanine Aminotransferase 11 U/L (0-40); Albumin Level 3.1 g/dL (3.5-5.0); Alkaline Phosphatase 44 U/L (39-117); Anion Gap 14 (12-20); Aspartate Amino Transferase 13 U/L (5-37); Bilirubin Total 0.5 mg/dL (0.0-1.0); Blood Urea Nitrogen 7 mg/dL (9-16); Calcium 9.8 mg/dL (8.4-10.2); Carbon Dioxide 28 mmol/L (22-29); Chloride 104 mmol/L (96-108); Creatinine Clr Calc Pharmacy 142.6; Estimated Glomerular Filt Rate > 60; Glucose Fasting 104 mg/dL (60-99); Potassium 3.9 mmol/L (3.3-5.1); Sodium 142 mmol/L (135-145); Total Protein 5.3 g/dL (6.5-8.0)
[2021-01-20 08:00] VITALS: BP 108/59; PULSE 121; RESP 20; TEMP 36.8; O2SAT 93
[2021-01-20] MEDS: Cholecalciferol (Vitamin D3) 25 MCG TABLET G-TUBE (10:46)
[2021-01-20] MEDS: polyethylene glycoL 3350 17 GM POWD.PACK G-TUBE (10:46)
--- NOTE | 2021-01-20 11:45 | P.PNNP_ITS ---
Subjective Subjective Date of Service: 01/20/21 Interval history: Events noted. All recent data reviewed Physical Exam Vital Signs: Vital Signs: Last Vital Signs Temp 98.3 F 01/20/21 08:00 Pulse 121 H 01/20/21 08:00 Resp 20 01/20/21 08:00 BP 108/59 L 01/20/21 08:00 Pulse Ox 93 01/20/21 08:00 Body Mass Index 24.4 Const: General: no acute distress Neck: Neck: Yes supple Resp: Auscultation: diminished lung sounds Cardio: Jugular venous distension: no JVD GI: Palpation (GI): Soft to palpation Skin: General skin exam: no rashes or lesions noted Objective Data Labs CBC & Chem 7: 01/20/21 06:13 01/20/21 06:13 Labs: Laboratory Results - last 24 hr 01/20/21 01/20/21 06:13 06:13 WBC 9.5 RBC 3.89 L Hgb 11.7 L Hct 35.7 L MCV 91.8 MCH 30.1 MCHC 32.8 RDW 14.1 Plt Count 159 L MPV 12.4 Immature Gran % (Auto) 0.4 Neut % (Auto) 68.0 Lymph % (Auto) 19.0 L [place] % (Auto) 10.7 Eos % (Auto) 1.7 Baso % (Auto) 0.2 Lymph # (Auto) 1.8 [place] # (Auto) 1.0 Eos # (Auto) 0.2 Baso # (Auto) 0.0 Abs Immat Gran (auto) 0.04 H Absolute Neuts (auto) 6.5 Absolute Nucleated RBC 0.000 Nucleated RBC % (auto) 0.0 Sodium 142 Potassium 3.9 Chloride 104 Carbon Dioxide 28 Anion Gap 14 BUN 7 L Creatinine 0.56 Estim Creat Clear Calc 142.6 Estimated GFR > 60 Fasting Glucose 104 H Calcium 9.8 D Total Bilirubin 0.5 AST 13 ALT 11 Alkaline Phosphatase 44 D Total Protein 5.3 L D Albumin 3.1 L D Procedures Date of Service Date of Service: 01/20/21 Assessment & Plan Assessment and plan (1) Hypercalcemia: Status: Acute Assessment and Plan: Has hypercalcemia likely due to immobility Still needs further outpatient W/U for hypercalcemia Endocrinology has seen patient Hypernatremia due to nephrogenic DI from hypercalcemia(resolved) Shall arrange close office follow up if D/Sean Time Spent With Patient Time: Total time spent is greater than 50% in coordination of care (as docume nted) at patient's floor/unit and/or counseling patient: Progress Note: Quality Stroke Does the patient have a stroke diagnosis?: No
[2021-01-20 12:00] VITALS: BP 129/84; PULSE 117; RESP 20; TEMP 36.8; O2SAT 98
--- NOTE | 2021-01-20 12:00 | MHC.CLN ---
F/U LABS REVIEWED-UNREMARKABLE PT RECEIVES CUSTOM TUBE FEEDING KETOVIE 3:1 BOLUS 240ML/HR TID (DURING THE DAY) WITH 240ML FREE WATER FLUSH AFTER EACH BOLUS WITH 120ML CONTINUOUS KETOVIE 3:1 NOCTURNAL FEEDING X 9 HOURS WITH AN ADDITIONAL 240ML WATER FLUSH S/P NOCTURNAL FEED PROVIDES 1800KCALS (31.7KCALS/KG), 52.5G PROTEIN (.9G/KG), 2490CC TOTAL WATER FROM FORMULA AND FLUSHES (43.9ML/KG) PT HAS BEEN ON THIS TF FOR 2 YEARS AND FAMILY WOULD LIKE TO CONTINUE. FAMILY BROUGHT FORMULA FROM HOME THIS IS A SPECIALTY FORMULA AND UNAVAILABLE IN FACILITY. DISCUSSED WITH NURSE AND MD MONITOR TOLERANCE, RESIDUALS AND LYTES CLOSELY
--- NOTE | 2021-01-20 12:26 | P.DS_ITS ---
DS: Providers Provider Date of Service: 01/20/21 Date of admission: 01/18/21 20:03 Primary care physician: [facility] Consults: 01/18/21 22:41 Consult to Nephrology Routine Consulting Provider: [facility] Reason for consultation: hypercalcemia, hypernatremia Has provider been notified: No DS: Diagnosis Discharge Diagnosis (1) Hypercalcemia: Status: Acute DS: Summary Hospital Course Hospital Course: his is a 25-year-old male with past medical history of cerebral palsy, osteoporosis, quadriplegia, seizure disorder, who comes into the hospital brought in by his stepfather due to hypercalcemia.? According to the stepfather patient is chronically wheelchair-bound/bed-bound and has been recently changed to ketogenic only diet, he does not take any other p.o. intake, has not been drinking any water or any liquids besides the ketogenic tube feeds.? He was taken to his doctor today for routine labs, found to have hypercalcemia therefore sent to the hospital for further management.? According to the stepfather patient has not had any other acute issues with no changes to his mental status or medical home health. Unable to review of system is patient is nonverbal at baseline Hospital course Admitted to telemetry and started on IV fluids. Consult placed to Nephrology; hypercalcemia related to immobility and hyponatremia secondary to nephrogenic DI secondary to hypercalcemia. Calcium and sodium both normalized without the use of pamidronate. At this point in time patient is stable to go home with mother and father, resuming the same regimen. Mother is repeatedly encouraged on routine labs otherwise Zoltan's care appears exemplary. There were no signs of dehydration on admission; again hypercalcemia secondary to immobility Time Spent with Patient Time attestation: Total time spent providing and/or coordinating discharge services: Discharge coordination time: Greater than 30 minutes Quality: Stroke Does the patient have a stroke diagnosis?: No Physical Exam Vital Signs: Vital Signs: Last Vital Signs Temp 98.3 F 01/20/21 12:00 Pulse 117 H 01/20/21 12:00 Resp 20 01/20/21 12:00 BP 129/84 01/20/21 12:00 Pulse Ox 98 01/20/21 12:00 Body Mass Index 24.4 Const: Other: Alert nonverbal HENMT: Other: Membranes moist Resp: Other: Clear to auscultation bilaterally no rales rhonchi or wheezes Cardio: Other: Tachy; no S4; positive S1-S2; no S3 murmurs of for gallops GI: Other: Soft slightly distended normoactive bowel sounds. Baclofen pump right lower quadrant. G-tube site clean dry and intact Extrem: Other: Contracted DS: Data Data Completed and Pending Labs on day of discharge: Laboratory Results - last 24 hr 01/20/21 01/20/21 06:13 06:13 WBC 9.5 RBC 3.89 L Hgb 11.7 L Hct 35.7 L MCV 91.8 MCH 30.1 MCHC 32.8 RDW 14.1 Plt Count 159 L MPV 12.4 Immature Gran % (Auto) 0.4 Neut % (Auto) 68.0 Lymph % (Auto) 19.0 L [place] % (Auto) 10.7 Eos % (Auto) 1.7 Baso % (Auto) 0.2 Lymph # (Auto) 1.8 [place] # (Auto) 1.0 Eos # (Auto) 0.2 Baso # (Auto) 0.0 Abs Immat Gran (auto) 0.04 H Absolute Neuts (auto) 6.5 Absolute Nucleated RBC 0.000 Nucleated RBC % (auto) 0.0 Sodium 142 Potassium 3.9 Chloride 104 Carbon Dioxide 28 Anion Gap 14 BUN 7 L Creatinine 0.56 Estim Creat Clear Calc 142.6 Estimated GFR > 60 Fasting Glucose 104 H Calcium 9.8 D Total Bilirubin 0.5 AST 13 ALT 11 Alkaline Phosphatase 44 D Total Protein 5.3 L D Albumin 3.1 L D Discharge Plan Discharge Patient Disposition: Home Health Service Discharge Diagnosis: Hypercalcemia secondary to immobility Referrals: [facility] [Primary Care Provider] - 1 Week Discharge Medications: Continued multivitamin Tablet 1 tab feeding tube DAILY RF: 0 albuterol sulfate 5 mg/mL Solution For Nebulization 5 mg INHALATION Q4H PRN (Reason: Wheezing) RF: 0 baclofen 500 mcg/mL Solution 80 mcg intrathecal DAILY RF: 0 levocarnitine 330 mg Tablet 660 mg feeding tube BID RF: 0 diazepam 10 mg Kit 5 mg [place] DAILY PRN (Reason: Seizures) RF: 0 polyethylene glycol 3350 17 gram/dose Powder 17 g feeding tube DAILY RF: 0 lansoprazole 30 mg Tablet,Disintegrat, Delay Rel 30 mg feeding tube DAILY RF: 0 melatonin 1 mg Tablet 1 mg feeding tube BEDTIME RF: 0 cholecalciferol (vitamin D3) [Vitamin D3] 25 mcg (1,000 unit) Tablet 25 mcg feeding tube TID RF: 0 Eucerin Cream 1 appl TOPICAL BID RF: 0 KetoVie See Rx Instructions .ROUTE .COMPLEX RF: 0 Sodium Bicarb 28 meq G-tube DAILY RF: 0 Discharge Orders: Discharge Order (Routine); Ordered 01/20/21 Ordered By: Nickolas Morejon Diet: advance to usual diet Activity on Discharge: As tolerated Stand Alone Forms: Patient Portal Discharge page Care Plan Goals: Resume home therapies as prior to admission Health Concerns: Ongoing labs with endocrine Plan of Treatment: No changes in planning care Assessment: Improved
--- NOTE | 2021-01-20 12:40 | MHC.CM.PN ---
Patient has been medically cleared for dc to home today, no skilled services (confirmed with MD). [facility] services should resume, as before.
[2021-01-20 15:26] VITALS: BP 128/80; PULSE 130; RESP 18; TEMP 37.1; O2SAT 98
== END 2021-01-20 15:41 | disposition home or self-care (01) | DRG 425 ==
LOC: HO.ED 17:18 → HO.EDOVER 20:25 → HO.IMC 01-19 05:22
PROVIDERS: Emergency Medicine; Admitting Provider Internal Medicine; Emergency Provider Emergency Medicine; PCP Internal Medicine Geriatric Medicine; Visit Provider Hospitalist
DX: E83.52 Hypercalcemia (principal); E87.0 Hyperosmolality and hypernatremia; G80.8 Other cerebral palsy; E87.5 Hyperkalemia; M81.8 Other osteoporosis without current pathological fracture; R00.0 Tachycardia, unspecified; G40.909 Epilepsy, unspecified, not intractable, without status epilepticus; Z20.822 Contact with and (suspected) exposure to COVID-19; Z88.0 Allergy status to penicillin; Z79.899 Other long term (current) drug therapy
CPT/HCPCS: 36415; 80048; 80053; 80076; 82310; 83690; 83735; 85025; 87635; 96360; 96361; 99212; 99219; 99285; J1650; J1940

== ENCOUNTER 2021-03-01 12:39 | Outpatient (REF) | payer MEDICAID, SELFPAY ==
[2021-03-01 14:39] LABS: Alanine Aminotransferase 19 U/L (0-40); Albumin Level 4.7 g/dL (3.5-5.0); Alkaline Phosphatase 53 U/L (39-117); Anion Gap 16 (12-20); Aspartate Amino Transferase 16 U/L (5-37); Bilirubin Total 0.4 mg/dL (0.0-1.0); Blood Urea Nitrogen 13 mg/dL (9-16); Carbon Dioxide 27 mmol/L (22-29); Chloride 104 mmol/L (96-108); Estimated Glomerular Filt Rate > 60; Glucose Random 94 mg/dL (60-115); Phosphorus 3.4 mg/dL (2.7-4.5); Potassium 4.3 mmol/L (3.3-5.1); Sodium 143 mmol/L (135-145); Total Protein 7.6 g/dL (6.5-8.0)
[2021-03-01 14:53] LABS: Calcium 12.7 mg/dL (8.4-10.2)
[2021-03-01 14:54] LABS: Vitamin D 25-OH Total 33.6 ng/mL (>30)
[2021-03-03 17:50] LABS: Calcium (PTHI) 12.5 mg/dL (8.6-10.3); PTHI 7 pg/mL (14-64)
== END 2021-03-01 12:40 | disposition home or self-care (01) ==
LOC: HO.LAB 12:39
PROVIDERS: PCP Internal Medicine Geriatric Medicine; Visit Provider Internal Medicine
DX: E83.52 Hypercalcemia (principal); M81.0 Age-related osteoporosis without current pathological fracture
CPT/HCPCS: 36415; 80053; 82306; 83970; 84100; 99212

== ENCOUNTER 2021-03-02 14:27 | Outpatient (REF) | payer MEDICAID, SELFPAY | END 2021-03-02 14:28 | disposition home or self-care (01) | LOC: HO.MDS 14:27 | PROVIDERS: Visit Provider Internal Medicine | DX: M81.0 Age-related osteoporosis without current pathological fracture (principal) | CPT/HCPCS: 96365; J3489 ==

== ENCOUNTER 2021-03-28 16:04 | Outpatient (REF) | payer MEDICAID, SELFPAY ==
[2021-03-28 16:32] LABS: MANUAL DIFF FLAG NO
[2021-03-28 16:38] LABS: Basophils Percent Auto 0.2 % (0-2); Eosinophils Absolute Auto 0.1 X10*3/uL (0.0-0.4); Eosinophils Percent Auto 1.8 % (0-4); Hematocrit 47.2 % (42.0-52.0); Hemoglobin 14.8 g/dl (14.0-18.0); Imm Gran Abs Auto 0.01 X10*3/uL (0.00-0.03); Imm Gran Pct Auto 0.2 % (0.0-0.4); Lymphocytes Absolute Auto 1.9 X10*3/uL (1.2-4.9); Lymphocytes Percent Auto 36.9 % (20-40); Mean Corpuscular HGB Conc 31.4 g/dl (31.0-36.0); Mean Corpuscular Hemoglobin 29.4 pg (27.0-33.0); Mean Corpuscular Volume 93.7 fL (80.0-98.0); Mean Platelet Volume 11.5 fL (9.4-12.4); Monocytes Absolute Auto 0.6 X10*3/uL (0.1-1.2); Monocytes Percent Auto 10.8 % (2-11); Neutrophils Absolute Auto 2.5 x10*3/uL (2.0-8.3); Neutrophils Percent Auto 50.1 % (45-73); Platelet Count 171 X10*3/uL (160-400); Red Blood Count 5.04 X10*6/uL (4.60-5.80); Red Cell Distribution Width 13.9 % (11.0-16.0); White Blood Count 5.1 X10*3/uL (4.8-10.8)
[2021-03-28 17:15] LABS: Alanine Aminotransferase 21 U/L (0-40); Albumin Level 4.2 g/dL (3.5-5.0); Alkaline Phosphatase 50 U/L (39-117); Amylase 100 U/L (28-100); Anion Gap 19 (12-20); Aspartate Amino Transferase 22 U/L (5-37); Bilirubin Direct < 0.2 mg/dL (0.0-0.5); Bilirubin Total 0.3 mg/dL (0.0-1.0); Blood Urea Nitrogen 13 mg/dL (9-16); Calcium 10.8 mg/dL (8.4-10.2); Carbon Dioxide 25 mmol/L (22-29); Chloride 108 mmol/L (96-108); Cholesterol 141 mg/dL; Estimated Glomerular Filt Rate > 60; Glucose Random 99 mg/dL (60-115); HDL Cholesterol 21 mg/dL; LDL Cholesterol Calculated 80 mg/dl; Lipase 101 U/L (8-78); Potassium 4.1 mmol/L (3.3-5.1); Sodium 148 mmol/L (135-145); Total Protein 7.7 g/dL (6.5-8.0); Triglycerides 200 mg/dL
[2021-03-28 17:18] LABS: Vitamin D 25-OH Total 40.1 ng/mL (>30)
[2021-03-28 17:35] LABS: Folate > 20.0 ng/mL (> or = 4.0)
[2021-04-02 01:50] LABS: Zinc 70 mcg/dL (60-130)
== END 2021-03-28 16:05 | disposition home or self-care (01) ==
LOC: HO.LAB 16:04
PROVIDERS: Visit Provider Pediatrics Neurodevelopmental Disabilities
DX: G40.919 Epilepsy, unspecified, intractable, without status epilepticus (principal)
CPT/HCPCS: 36415; 80053; 80061; 82150; 82248; 82306; 82746; 83690; 84630; 85025

== ENCOUNTER 2021-04-06 17:15 | Outpatient (REF) | payer MEDICAID, SELFPAY ==
[2021-04-06 17:30] LABS: Appearance Urine CLEAR; Color Urine YELLOW; Glucose Urine UA NEG (NEG); Leukocyte Esterase Urine NEG (NEG); Nitrite Urine NEG (NEG); Urine Blood NEG (NEG); Urine Ketones >=80 MG/DL (NEG); Urine Protein NEG (NEG-TRACE)
[2021-04-06 17:48] LABS: Creatinine Urine 106.72 mg/dL
[2021-04-07 22:02] LABS: Calcium, Random Urine 22.5 mg/dL
[2021-04-12 16:32] LABS: Citric Acid, Random Urine 121 mg/g creat (65-650); Creatinine, Random Urine 107 mg/dL (20-320)
== END 2021-04-06 17:16 | disposition home or self-care (01) ==
LOC: HO.LNP 17:15
PROVIDERS: Visit Provider Pediatrics Neurodevelopmental Disabilities
DX: G40.919 Epilepsy, unspecified, intractable, without status epilepticus (principal)
CPT/HCPCS: 81003; 82310; 82507

== ENCOUNTER 2021-05-16 16:17 | Outpatient (REF) | payer MEDICAID, SELFPAY ==
[2021-05-16 17:03] LABS: MANUAL DIFF FLAG NO
[2021-05-16 17:08] LABS: Basophils Percent Auto 0.4 % (0-2); Eosinophils Absolute Auto 0.2 X10*3/uL (0.0-0.4); Hematocrit 53.7 % (42.0-52.0); Hemoglobin 16.7 g/dl (14.0-18.0); Imm Gran Abs Auto 0.04 X10*3/uL (0.00-0.03); Imm Gran Pct Auto 0.4 % (0.0-0.4); Lymphocytes Absolute Auto 2.3 X10*3/uL (1.2-4.9); Lymphocytes Percent Auto 22.3 % (20-40); Mean Corpuscular HGB Conc 31.1 g/dl (31.0-36.0); Mean Corpuscular Hemoglobin 29.5 pg (27.0-33.0); Mean Corpuscular Volume 94.7 fL (80.0-98.0); Mean Platelet Volume 11.4 fL (9.4-12.4); Monocytes Absolute Auto 0.9 X10*3/uL (0.1-1.2); Monocytes Percent Auto 8.7 % (2-11); Neutrophils Absolute Auto 6.9 x10*3/uL (2.0-8.3); Neutrophils Percent Auto 66.2 % (45-73); Platelet Count 238 X10*3/uL (160-400); Red Blood Count 5.67 X10*6/uL (4.60-5.80); Red Cell Distribution Width 15.4 % (11.0-16.0); White Blood Count 10.4 X10*3/uL (4.8-10.8)
[2021-05-16 17:48] LABS: Alanine Aminotransferase 11 U/L (0-40); Albumin Level 4.7 g/dL (3.5-5.0); Alkaline Phosphatase 48 U/L (39-117); Anion Gap 23 (12-20); Aspartate Amino Transferase 13 U/L (5-37); Bilirubin Direct 0.2 mg/dL (0.0-0.5); Bilirubin Total 0.4 mg/dL (0.0-1.0); Blood Urea Nitrogen 14 mg/dL (9-16); Calcium 11.2 mg/dL (8.4-10.2); Carbon Dioxide 28 mmol/L (22-29); Chloride 103 mmol/L (96-108); Cholesterol 206 mg/dL; Estimated Glomerular Filt Rate > 60; Glucose Random 99 mg/dL (60-115); HDL Cholesterol 38 mg/dL; LDL Cholesterol Calculated 147 mg/dl; Lipase 19 U/L (8-78); Magnesium 1.5 mg/dL (1.6-2.6); Phosphorus 3.3 mg/dL (2.7-4.5); Potassium 4.1 mmol/L (3.3-5.1); Total Protein 7.9 g/dL (6.5-8.0); Triglycerides 109 mg/dL
[2021-05-16 18:00] LABS: Vitamin D 25-OH Total 39.8 ng/mL (>30)
[2021-05-16 18:09] LABS: Amylase 74 U/L (28-100); Sodium 150 mmol/L (135-145); Uric Acid 11.5 mg/dL (3.4-7.0)
[2021-05-16 18:24] LABS: Folate > 20.0 ng/mL (> or = 4.0); Vitamin B12 1185 pg/mL (200-900)
[2021-05-19 01:31] LABS: Zinc 81 mcg/dL (60-130)
[2021-05-19 20:46] LABS: Vitamin A 68 mcg/dL (38-98)
[2021-05-19 23:07] LABS: Beta-Hydroxybutyrate 6.65 mmol/L
[2021-05-20 02:07] LABS: Copper, serum 131 mcg/dL (70-175); Selenium, Serum 112 mcg/L (63-160)
[2021-05-20 21:21] LABS: Alpha-Tocopherol 17.7 mg/L (5.7-19.9); Beta-Gamma Tocopherol <1.0 mg/L (<=4.3)
== END 2021-05-16 16:18 | disposition home or self-care (01) ==
LOC: HO.LAB 16:17
PROVIDERS: Visit Provider Pediatrics Neurodevelopmental Disabilities
DX: G40.919 Epilepsy, unspecified, intractable, without status epilepticus (principal)
CPT/HCPCS: 36415; 80048; 80061; 80076; 82010; 82150; 82306; 82525; 82607; 82746; 83690; 83735; 84100; 84255; 84446; 84550; 84590; 84630; 85025

== ENCOUNTER 2021-05-18 16:35 | Outpatient (REF) | payer MEDICAID, SELFPAY ==
[2021-05-18 16:49] LABS: Appearance Urine HAZY; Color Urine DK YELLOW; Glucose Urine UA NEG (NEG); Leukocyte Esterase Urine TRACE (NEG); Nitrite Urine NEG (NEG); Specific Gravity - Urine 1.015 (1.005-1.025); Urine Blood TRACE (NEG); Urine Ketones >=80 MG/DL (NEG); Urine Protein 1+ MG/DL (NEG-TRACE)
[2021-05-18 17:04] LABS: Creatinine Urine 171.41 mg/dL
[2021-05-18 18:05] LABS: Bacteria Urine TRACE /LPF; Calcium Oxalate Crystals Urine 1+ /LPF; Mucus Urine 1+ /LPF; Squamous Epithelial Cell Urine 1+ /LPF; WBC Clumps Urine NOTED
[2021-05-22 17:01] LABS: Calcium, Random Urine 17.8 mg/dL
[2021-05-23 08:57] LABS: Citric Acid, Random Urine 95 mg/g creat (65-650); Creatinine, Random Urine 162 mg/dL (20-320)
== END 2021-05-18 16:36 | disposition home or self-care (01) ==
LOC: HO.LNP 16:35
PROVIDERS: Visit Provider Pediatrics Neurodevelopmental Disabilities
DX: G40.909 Epilepsy, unspecified, not intractable, without status epilepticus (principal)
CPT/HCPCS: 81001; 82310; 82507

== ENCOUNTER 2022-01-05 16:39 | Inpatient (IN) | payer MEDICAID, SELFPAY ==
--- NOTE | ~2022-01-05 | XR_ITS ---
EXAMINATION: XR CHEST CLINICAL INFORMATION: URI, hypoxic COMPARISON: Chest x-ray 03/12/2007 TECHNIQUE: Frontal view of the chest was obtained. FINDINGS: Minimal hazy opacity in retrocardiac left lung base, likely mild atelectasis. No other focal airspace opacity. No pleural effusion or pneumothorax is visualized. Cardiomediastinal silhouette and pulmonary vascular are within normal limits. Dextroconvex curvature of the thoracolumbar spine. No acute osseous injury identified. Percutaneous G-tube projects over the upper abdomen. XR/XR chest 1V IMPRESSION: Minimal hazy opacity in the retrocardiac left lung base, likely mild atelectasis. Cannot exclude small volume aspiration or early pneumonia in the appropriate clinical setting.
--- NOTE | ~2022-01-05 | FL_ITS ---
EXAMINATION: XR FLUOROSCOPY WITH IMAGES CLINICAL INFORMATION: Stone on the left COMPARISON: CT abdomen pelvis on 01/06/2022 TECHNIQUE: Fluoroscopy performed by urology team. Fluoroscopy time: 17.1 seconds. Cumulative Dose: 2.54 mGy. Images: 3. FINDINGS: Fluoroscopy provided during left sided cystoscopy, retrograde nephrostogram and ureteral stent placement. FL/FL guidance in OR IMPRESSION: Fluoroscopy provided for the urology department. Please see the operative report for additional information.
--- NOTE | ~2022-01-05 | CT_ITS ---
EXAMINATION: CT ABDOMEN AND PELVIS WITHOUT CONTRAST CLINICAL INFORMATION: Vomiting. Elevated creatinine. COMPARISON: None TECHNIQUE: Multidetector volumetric imaging was performed from the superior aspect of the liver through the pubic symphysis. Sagittal and coronal reformatted images were obtained on the technologist's workstation. This CT examination was performed using dose optimization techniques as appropriate, variously including the following: *Automated exposure control *Adjustment of mA and/or kV according to patient size (this includes techniques or standardized protocols for targeted exams where dose is matched to indication/reason for exam; i.e. extremities or head) *Use of iterative reconstruction technique DLP: 552 mGy-cm FINDINGS: LUNG BASES: The visualized lung bases are unremarkable. LIVER, GALLBLADDER, AND BILIARY TREE: The liver is normal in size, shape, and attenuation. No focal hepatic lesion or biliary ductal dilatation is present. The gallbladder is unremarkable with no evidence of radiopaque gallstones, gallbladder wall thickening, or obvious pericholecystic inflammatory changes. PANCREAS: Unremarkable. SPLEEN: Unremarkable. ADRENAL GLANDS: Unremarkable. KIDNEYS AND URETERS: The kidneys are normal in size, shape, and attenuation. Bilateral nonobstructive intrarenal calculi number at least 9 within the left kidney and 5 within the right kidney measuring 7 mm in the lower pole left kidney. There is a 5 mm calculus distal left ureter, approximately 4 cm from the ureterovesical junction associated mild upstream hydroureter and pelviectasis. No perinephric stranding. BLADDER: Unremarkable. GASTROINTESTINAL TRACT: Gastrostomy tube present within the stomach. Redundancy of the gastric cardia may reflect previous Faustino fundoplication. Moderate rectal stool burden without significant perirectal fat stranding. Remainder of the colon unremarkable. Normal small bowel. Normal appendix. ABDOMINAL WALL: No significant hernia is appreciated. LYMPH NODES: Normal. VASCULAR: Unremarkable. PELVIC VISCERA: Unremarkable. OSSEOUS STRUCTURES: No acute or suspicious osseous abnormalities. Long segment fusion of the thoracolumbar spine CT/CT abdomen pelvis wo IV con IMPRESSION: * There is a 5 mm stone in the distal LEFT ureter associated mild upstream hydroureter and pelviectasis. * Bilateral nonobstructive intrarenal calculi.
--- NOTE | ~2022-01-05 | XR_ITS ---
EXAMINATION: XR CHEST CLINICAL INFORMATION: Central line placement COMPARISON: 01/05/2022 TECHNIQUE: Frontal view of the chest was obtained. FINDINGS: Right subclavian approach central venous catheter seen with tip in the region of the cavoatrial junction. The patient is rotated. No pneumothorax seen. Lung volumes are low with bronchovascular crowding but no pulmonary edema. No focal consolidation or mass. Severe osteoarthritis of the right shoulder. XR/XR chest 1V IMPRESSION: New right subclavian approach central venous catheter with tip in the cavoatrial junction. No pneumothorax seen.
--- NOTE | ~2022-01-05 | CT_ITS ---
EXAMINATION: CT CHEST WITHOUT CONTRAST CLINICAL INFORMATION: Cough, hypoxia and shortness of breath COMPARISON: Chest x-ray performed earlier the same date TECHNIQUE: Multidetector volumetric CT imaging of the chest was done. Axial MIP volume rendering provided. Sagittal and coronal reformatted images were obtained. This CT examination was performed using dose optimization techniques as appropriate, variously including the following: *Automated exposure control *Adjustment of mA and/or kV according to patient size (this includes techniques or standardized protocols for targeted exams where dose is matched to indication/reason for exam; i.e. extremities or head) *Use of iterative reconstruction technique DLP: 295 mGy-cm FINDINGS: LUNGS: There is minimal hazy attenuation in the dependent left lung consistent with mild atelectasis. No airspace consolidation. Small 5 mm slightly ill-defined pulmonary nodule suspected in the left upper lobe on series 5 image 190. No other pulmonary nodules. Central airways appear clear. No bronchial wall thickening or bronchiectasis. MEDIASTINUM: Normal heart size. No pericardial effusion. Normal caliber thoracic aorta and central pulmonary trunk. No mediastinal or hilar lymphadenopathy. CORONARY ARTERY CALCIFICATION: None visualized on this study. PLEURA: There is no pleural effusion. No pleural mass or thickening. AXILLA: No lymphadenopathy. UPPER ABDOMEN: Small 2 mm nonobstructing bilateral renal calculi. Imaged upper abdominal viscera otherwise grossly unremarkable. Suggestion of prior Faustino fundoplication. Correlate with surgical history. OSSEOUS STRUCTURES: Dextroconvex scoliotic curvature the lumbar spine with ankylosis of the posterior elements consistent with prior fusion. No acute fracture or suspicious osseous lesion. A catheter is seen in the spinal canal with tip terminating on the right at the level of T2-T3. CT/CT chest wo IV con IMPRESSION: 1. No airspace consolidation or pleural effusions. 2. Small 5 mm left upper lobe pulmonary nodule, likely benign or inflammatory. 3. Small nonobstructing bilateral renal calculi. 4. Dextroconvex scoliotic curvature of the lumbar spine with ankylosis of the posterior elements consistent with prior fusion.
--- NOTE | ~2022-01-05 | XR_ITS ---
EXAMINATION: XR abdomen 1V CLINICAL INDICATION: Reason for Exam vomiting COMPARISON: CT abdomen pelvis 01/06/2022 TECHNIQUE: AP view of the abdomen. FINDINGS: Lines or devices: Left nephroureteral stent overlies the expected region of the left kidney and the bladder. Generator device overlies the right lower quadrant. Percutaneous gastrostomy tube overlies the stomach. Partially imaged right central venous catheter tip near the right atrium. Nonobstructive bowel gas pattern. Large desiccated stool burden in the rectum. 5 mm calcification overlies the expected region of the left ureterovesicular junction. Multiple calcifications overlie the expected region of the kidneys corresponding to stones on prior exam for example a 8 mm calcification overlying the left lower renal pole. Question of few patchy right basilar airspace opacities, which could be better evaluated with dedicated chest radiographs. Dextroconvex curvature of the thoracal lumbar spine. XR/XR abdomen 1V IMPRESSION: 1. Large desiccated stool burden in the rectum. Nonobstructive bowel gas pattern. 2. 5 mm calcification overlies the expected region of the left ureterovesicular junction. Multiple calcifications overlie the expected region of the kidneys corresponding to stones on prior exam for example a 8 mm calcification overlying the left lower renal pole. 3. Question of few patchy right basilar airspace opacities, which could be better evaluated with dedicated chest radiographs. 4. Lines and tubes as above detailed.
--- NOTE | 2022-01-05 16:47 | ED_ITS ---
HPI - General Adult General Chief complaint: Upper Respiratory Symptoms Stated complaint: resp distress Time Seen by Provider: 01/05/22 16:42 Source: EMS and other (Patients PCP ) Mode of arrival: EMS Limitations: other (non verbal at baseline) History of Present Illness HPI narrative: This is a 26-year-old male past medical history significant for cerebral palsy, microcephaly lists, seizures, nonverbal, wheelchair-bound at home presenting from his primary care provider's office with concerns of upper respiratory symptoms, hypoxia. According to patient presented with cough, vomiting, malaise. EMS tells me that father states that he brought patient in to be evaluated due to increased work of breathing for the past few days. At the [facility] patient was saturating 91 92% on room air with a heart rate in the 140s. Unable to obtain an accurate review of system are history as patient is nonverbal. Patient's family members are not at the bedside. Upon arrival patient appears to be in no acute distress. Related Data Home Medications Medication Instructions Recorded Confirmed KetoVie See Rx Instructions .Route .COMPLEX 01/18/21 03/01/21 Sodium Bicarb 28 meq G-tube DAILY 01/18/21 03/01/21 albuterol sulfate 5 mg/mL(0.5 %) 5 mg inhalation Q4H PRN Wheezing 01/18/21 03/01/21 solution for nebulization baclofen 500 mcg/mL intrathecal 80 mcg intrathecal DAILY 01/18/21 03/01/21 solution cholecalciferol (vitamin D3) 25 25 mcg feeding tube TID 01/18/21 03/01/21 mcg (1,000 unit) tablet (Vitamin D3) diazepam 10 mg rectal kit 5 mg WI DAILY PRN Seizures 01/18/21 03/01/21 lanolin alcohols-mineral 1 appl topical BID 01/18/21 03/01/21 oil-w.petrolatum-ceresin topical cream (Eucerin topical cream) lansoprazole 30 mg delayed 30 mg feeding tube DAILY 01/18/21 03/01/21 release,disintegrating tablet levocarnitine 330 mg tablet 660 mg feeding tube BID 01/18/21 03/01/21 melatonin 1 mg tablet 1 mg feeding tube BEDTIME 01/18/21 03/01/21 multivitamin 1 tab feeding tube DAILY 01/18/21 03/01/21 polyethylene glycol 3350 17 17 g feeding tube DAILY 01/18/21 03/01/21 gram/dose oral powder polyethylene glycol 3350 17 17 g PO DAILY 03/01/21 03/01/21 gram/dose oral powder (Miralax) Allergies Allergy/AdvReac Type Severity Reaction Status Date / Time amoxicillin [AMOXICILLIN] Allergy Unknown RASH Verified 03/01/21 13:06 Review of Systems Review of Systems: Yes Unobtainable due to mental status PMFSH Past Medical History Attestation statement: The following information was validated with the patient. Source: old records reviewed and nursing notes reviewed Medical History (Updated 01/05/22 @ 22:30 by JESSICA Michelle) Cerebral palsy Hypercalcemia Osteoporosis Quadriplegia Seizure disorder Vitamin D deficiency Surgical History Gastrointestinal tube present History of back surgery Presence of intrathecal baclofen pump Family History Family History Mother Anemia Father No problems noted. Social History Social History Household Members: Family and Children Household Members Other:: twin 3 y.o sisters, mother, grandmother Housing: Apartment Housing Other:: handicap accessible Do you presently have visiting nurse or other home services: Yes ([employer] 52 hr/wk) Alcohol intake: never Patient Tobacco Use Status: Never used Tobacco Advance Directives: No Advance Directives Information Provided: Yes service: No Current occupational status: disabled Physical Exam ED Vital Signs: Vital Signs - 24 hr 01/05/22 16:55 01/05/22 21:31 01/06/22 02:25 Temperature 98.2 F 98.3 F 98.5 F Pulse Rate 131 H 136 H 135 H Respiratory Rate 19 18 16 Blood Pressure 100/57 L 138/78 125/76 Pulse Oximetry 100 100 Oxygen Delivery Method Room Air Room Air Room Air BMI result Body Mass Index 17.7 vss Appearance: Patient awake.? No acute distress.? Head: Normocephalic, atraumatic, no step-offs or deformities Eyes: Pupils equal, round and reactive to light.? ENT: Pharynx normal.??External ears normal, TMs normal bilaterally and EAC's normal. No pain with manipulation of external ears bilaterally. No mastoid tenderness. Neck: Normal inspection.? Neck supple.? CVS: Normal heart rate and rhythm.? Pulses normal.? Respiratory: No respiratory distress.?+ crackles to RLL and wheezing w/ expiration throughout. Abdomen: Soft and nontender.? Skin: Skin warm and dry.? Normal skin color.? Normal skin turgor.? Extremities: Global weakness. Upper extremities contracted. Neuro: Patient awake, blinking eyes, unlabored breathing. Unable to participate in neurological examination due to mental status. According to EMS family member state this is patient's baseline. Course Reevaluation(s) Reevaluation #1: Patient's CBC appears to be around baseline, chemistry with an elevated sodium, acute kidney injury, highly suspicious for dehydration/poor p.o. intake. Chest x-ray concerning for possible aspiration pneumonia, will obtain a dry CT of the chest to further investigate this. Cannot obtain a CT with contrast due to p atient's kidney function. Plan at this time is to hydrate patient, administer antibiotics. Urine pending CT of the chest pending. Will continue to monitor. Plan is to admit patient to hospital. Time: 20:05 Reevaluation #2: CT of the chest with no acute findings. UA, repeat BMP pending. Patient did have an episode of emesis, after tube feeding, family member at the bedside reports omeprazole usually works for the symptoms. Patient was suctioned. Time: 22:56 Reevaluation #3: Patient's kidney function improved however still with acute kidney injury deviating significantly from his baseline. Patient will be admitted for acute kidney injury, concerns for aspiration pneumonia still. At this time patient will be admitted to the hospitalist team for further evaluation and treatment. Time: 23:43 Medical Decision Making [facility] Narrative Medical decision making narrative: 1640 26-year-old male presents via EMS for upper respiratory symptoms times a few days. Was hypoxic in doctor's office and was sent here for further evaluation. Upon examination there crackles to the right lower lobe and expiratory wheezing throughout. Patient's vital signs are stable. Will rule out pneumonia. Low suspicion for PE. Plan Medical Records Medical records reviewed: Yes I reviewed the patient's medical records. Lab Data Lab results reviewed: Yes I reviewed the patient's lab results. Result diagrams: 01/05/22 18:24 01/05/22 23:03 Labs: Lab Results 01/05/22 01/05/22 01/05/22 Range/Units 18:10 18:24 18:24 WBC 9.4 (4.8-10.8) X10*3/uL RBC 3.74 L D (4.60-5.80) X10*6/uL Hgb 11.1 L D (14.0-18.0) g/dl Hct 34.8 L D (42.0-52.0) % MCV 93.0 (80.0-98.0) fL MCH 29.7 (27.0-33.0) pg MCHC 31.9 (31.0-36.0) g/dl RDW 13.6 (11.0-16.0) % Plt Count 279 (160-400) X10*3/uL MPV 11.1 (9.4-12.4) fL Immature Gran % (Auto) 1.0 H (0.0-0.4) % Neut % (Auto) 68.7 (45-73) % Lymph % (Auto) 16.8 L (20-40) % [place] % (Auto) 10.2 (2-11) % Eos % (Auto) 3.0 (0-4) % Baso % (Auto) 0.3 (0-2) % Lymph # (Auto) 1.6 (1.2-4.9) X10*3/uL [place] # (Auto) 1.0 (0.1-1.2) X10*3/uL Eos # (Auto) 0.3 (0.0-0.4) X10*3/uL Baso # (Auto) 0.0 (0.0-0.2) X10*3/uL Abs Immat Gran (auto) 0.09 H (0.00-0.03) X10*3/uL Absolute Neuts (auto) 6.5 (2.0-8.3) x10*3/uL Absolute Nucleated RBC 0.000 (0.0-0.012) X10*3/uL Nucleated RBC % (auto) 0.0 (0.0-0.2) /100WBC Sodium 146 H (135-145) mmol/L Potassium 4.1 (3.3-5.1) mmol/L Chloride 101 (96-108) mmol/L Carbon Dioxide 22 (22-29) mmol/L Anion Gap 27 H (12-20) BUN 61 H D (9-16) mg/dL Creatinine 3.52 H (0.5-1.4) mg/dL Estim Creat Clear Calc 17.3 Estimated GFR 21 Random Glucose 90 (60-115) mg/dL Lactic Acid (0.5-2.0) mmol/L Calcium 12.2 H D (8.4-10.2) mg/dL Magnesium 2.4 (1.6-2.6) mg/dL Total Bilirubin 0.4 (0.0-1.0) mg/dL AST 13 (5-37) U/L ALT 11 (0-40) U/L Alkaline Phosphatase 301 H D (39-117) U/L B-Natriuretic Peptide (<100) pg/mL Total Protein 7.6 (6.5-8.0) g/dL Albumin 4.2 (3.5-5.0) g/dL COVID-19 (MANN) Negative (Negative) COVID-19 Clin Com See Note Influenza Type A (PCR) (Negative) Influenza Type B (PCR) (Negative) RSV RNA Qual (PCR) (Negative) SARS-CoV-2 RNA (RT-PCR) (Negative) 01/05/22 01/05/22 01/05/22 Range/Units 18:24 18:25 18:30 WBC (4.8-10.8) X10*3/uL RBC (4.60-5.80) X10*6/uL Hgb (14.0-18.0) g/dl Hct (42.0-52.0) % MCV (80.0-98.0) fL MCH (27.0-33.0) pg MCHC (31.0-36.0) g/dl RDW (11.0-16.0) % Plt Count (160-400) X10*3/uL MPV (9.4-12.4) fL Immature Gran % (Auto) (0.0-0.4) % Neut % (Auto) (45-73) % Lymph % (Auto) (20-40) % [place] % (Auto) (2-11) % Eos % (Auto) (0-4) % Baso % (Auto) (0-2) % Lymph # (Auto) (1.2-4.9) X10*3/uL [place] # (Auto) (0.1-1.2) X10*3/uL Eos # (Auto) (0.0-0.4) X10*3/uL Baso # (Auto) (0.0-0.2) X10*3/uL Abs Immat Gran (auto) (0.00-0.03) X10*3/uL Absolute Neuts (auto) (2.0-8.3) x10*3/uL Absolute Nucleated RBC (0.0-0.012) X10*3/uL Nucleated RBC % (auto) (0.0-0.2) /100WBC Sodium (135-145) mmol/L Potassium (3.3-5.1) mmol/L Chloride (96-108) mmol/L Carbon Dioxide (22-29) mmol/L Anion Gap (12-20) BUN (9-16) mg/dL Creatinine (0.5-1.4) mg/dL Estim Creat Clear Calc Estimated GFR Random Glucose (60-115) mg/dL Lactic Acid 0.7 (0.5-2.0) mmol/L Calcium (8.4-10.2) mg/dL Magnesium (1.6-2.6) mg/dL Total Bilirubin (0.0-1.0) mg/dL AST (5-37) U/L ALT (0-40) U/L Alkaline Phosphatase (39-117) U/L B-Natriuretic Peptide < 10 (<100) pg/mL Total Protein (6.5-8.0) g/dL Albumin (3.5-5.0) g/dL COVID-19 (MANN) (Negative) COVID-19 Clin Com Influenza Type A (PCR) NEGATIVE (Negative) Influenza Type B (PCR) NEGATIVE (Negative) RSV RNA Qual (PCR) NEGATIVE (Negative) SARS-CoV-2 RNA (RT-PCR) NEGATIVE (Negative) 01/05/22 Range/Units 23:03 WBC (4.8-10.8) X10*3/uL RBC (4.60-5.80) X10*6/uL Hgb (14.0-18.0) g/dl Hct (42.0-52.0) % MCV (80.0-98.0) fL MCH (27.0-33.0) pg MCHC (31.0-36.0) g/dl RDW (11.0-16.0) % Plt Count (160-400) X10*3/uL MPV (9.4-12.4) fL Immature Gran % (Auto) (0.0-0.4) % Neut % (Auto) (45-73) % Lymph % (Auto) (20-40) % [place] % (Auto) (2-11) % Eos % (Auto) (0-4) % Baso % (Auto) (0-2) % Lymph # (Auto) (1.2-4.9) X10*3/uL [place] # (Auto) (0.1-1.2) X10*3/uL Eos # (Auto) (0.0-0.4) X10*3/uL Baso # (Auto) (0.0-0.2) X10*3/uL Abs Immat Gran (auto) (0.00-0.03) X10*3/uL Absolute Neuts (auto) (2.0-8.3) x10*3/uL Absolute Nucleated RBC (0.0-0.012) X10*3/uL Nucleated RBC % (auto) (0.0-0.2) /100WBC Sodium 149 H (135-145) mmol/L Potassium 4.9 (3.3-5.1) mmol/L Chloride 110 H (96-108) mmol/L Carbon Dioxide 19 L (22-29) mmol/L Anion Gap 25 H (12-20) BUN 54 H (9-16) mg/dL Creatinine 2.97 H (0.5-1.4) mg/dL Estim Creat Clear Calc 20.5 Estimated GFR 26 Random Glucose 73 (60-115) mg/dL Lactic Acid (0.5-2.0) mmol/L Calcium 10.2 D (8.4-10.2) mg/dL Magnesium (1.6-2.6) mg/dL Total Bilirubin (0.0-1.0) mg/dL AST (5-37) U/L ALT (0-40) U/L Alkaline Phosphatase (39-117) U/L B-Natriuretic Peptide (<100) pg/mL Total Protein (6.5-8.0) g/dL Albumin (3.5-5.0) g/dL COVID-19 (MANN) (Negative) COVID-19 Clin Com Influenza Type A (PCR) (Negative) Influenza Type B (PCR) (Negative) RSV RNA Qual (PCR) (Negative) SARS-CoV-2 RNA (RT-PCR) (Negative) ECG Data Attestation: I personally reviewed and interpreted this ECG as follows: Prior ECG tracings: not available for review Interpretation: Ventricular rate of 129, WI normal, QRS normal, QT/QTC normal. EKG with sinus tachycardia no ST elevations or inversions concerning for ischemia. No previous EKGs available Critical Care Time Critical Care Time Critical Care Time: No Discharge Plan Discharge Clinical Impression: Aspiration pneumonia, Dehydration, SILVIO (acute kidney injury), Nausea & vomiting Patient Disposition: Admitted As Inpatient
[2022-01-05 16:55] VITALS: BP 100/57; PULSE 131; RESP 19; TEMP 36.8; BMI 17.7
--- NOTE | 2022-01-05 17:08 | ECG_ITS ---
Test Reason : TACHYCARDIA Blood Pressure : / mmHG Vent. Rate : 129 BPM Atrial Rate : 129 BPM P-R Int : 130 ms QRS Dur : 078 ms QT Int : 306 ms P-R-T Axes : 061 063 060 degrees QTc Int : 448 ms Sinus tachycardia Possible Left atrial enlargement Borderline ECG No previous ECGs available Referred By: Davis Harrington Electronically Signed By:MICHELLE GHOSH MD
[2022-01-05 18:27] LABS: COVID-19 Test Negative (Negative); IDNOW Serial# 16C4AD1C
[2022-01-05 18:32] LABS: MANUAL DIFF FLAG NO
[2022-01-05 18:36] LABS: Basophils Percent Auto 0.3 % (0-2); Eosinophils Absolute Auto 0.3 X10*3/uL (0.0-0.4); Hematocrit 34.8 % (42.0-52.0); Hemoglobin 11.1 g/dl (14.0-18.0); Imm Gran Abs Auto 0.09 X10*3/uL (0.00-0.03); Lymphocytes Absolute Auto 1.6 X10*3/uL (1.2-4.9); Lymphocytes Percent Auto 16.8 % (20-40); Mean Corpuscular HGB Conc 31.9 g/dl (31.0-36.0); Mean Corpuscular Hemoglobin 29.7 pg (27.0-33.0); Mean Platelet Volume 11.1 fL (9.4-12.4); Monocytes Percent Auto 10.2 % (2-11); Neutrophils Absolute Auto 6.5 x10*3/uL (2.0-8.3); Neutrophils Percent Auto 68.7 % (45-73); Platelet Count 279 X10*3/uL (160-400); Red Blood Count 3.74 X10*6/uL (4.60-5.80); Red Cell Distribution Width 13.6 % (11.0-16.0); White Blood Count 9.4 X10*3/uL (4.8-10.8)
[2022-01-05 18:46] LABS: Lactic Acid 0.7 mmol/L (0.5-2.0)
[2022-01-05 18:55] LABS: Alanine Aminotransferase 11 U/L (0-40); Albumin Level 4.2 g/dL (3.5-5.0); Alkaline Phosphatase 301 U/L (39-117); Anion Gap 27 (12-20); Aspartate Amino Transferase 13 U/L (5-37); Bilirubin Total 0.4 mg/dL (0.0-1.0); Blood Urea Nitrogen 61 mg/dL (9-16); Calcium 12.2 mg/dL (8.4-10.2); Carbon Dioxide 22 mmol/L (22-29); Chloride 101 mmol/L (96-108); Creatinine Clr Calc Pharmacy 17.3; Estimated Glomerular Filt Rate 21; Glucose Random 90 mg/dL (60-115); Magnesium 2.4 mg/dL (1.6-2.6); Potassium 4.1 mmol/L (3.3-5.1); Sodium 146 mmol/L (135-145); Total Protein 7.6 g/dL (6.5-8.0)
[2022-01-05 18:57] LABS: B Type Natriuretic Peptide < 10 pg/mL (<100)
[2022-01-05 19:13] LABS: Influenza A PCR NEGATIVE (Negative); Influenza B PCR NEGATIVE (Negative); Resp Syncy Virus RNA Qual PCR NEGATIVE (Negative); SARS COV2 PCR INHOUSE NEGATIVE (Negative)
[2022-01-05] MEDS: cefTRIAXone sodium 1 GM in 0.9 % Sodium Chloride 50 ML IV (19:21)
[2022-01-05] MEDS: metroNIDAZOLE/NS 500 MG/100 ML PIGGYBACK 100 MG IV (20:08)
--- NOTE | 2022-01-05 20:11 | PC.NURSE ---
Pt abx are running, Pt is on the telemetry and it shows tachy 137. IVF are running slow. will continue to monitor.
[2022-01-05 21:31] VITALS: BP 138/78; PULSE 136; RESP 18; TEMP 36.8; O2SAT 100
[2022-01-05] MEDS: 0.9 % Sodium Chloride 1,000 ML 999 ML IV ×2 (21:50→21:55)
--- NOTE | 2022-01-05 21:50 | PC.NURSE ---
Pt's arm is contracted and continues to bend and inhibit the flow of IV fluids. This RN will attempt to gain a second point of access if the administration of fluids continues to be delayed.
--- NOTE | 2022-01-05 21:55 | PC.NURSE ---
Pt IVF are running. will continue to monitor.
[2022-01-05 23:32] LABS: Anion Gap 25 (12-20); Blood Urea Nitrogen 54 mg/dL (9-16); Calcium 10.2 mg/dL (8.4-10.2); Carbon Dioxide 19 mmol/L (22-29); Chloride 110 mmol/L (96-108); Creatinine Clr Calc Pharmacy 20.5; Estimated Glomerular Filt Rate 26; Glucose Random 73 mg/dL (60-115); Potassium 4.9 mmol/L (3.3-5.1); Sodium 149 mmol/L (135-145)
[2022-01-06 02:25] VITALS: BP 125/76; PULSE 135; RESP 16; TEMP 36.9; O2SAT 100
--- NOTE | 2022-01-06 03:01 | PC.NURSE ---
RN has spoken with the hospitalist in regards the order for amoxicillin d/t pt is allergic to amoxicillin. MD has requested to hold med d/t she will cancel the med. will continue to monitor.
[2022-01-06 03:38] VITALS: BP 121/78; PULSE 128; RESP 19; O2SAT 100
[2022-01-06] MEDS: Heparin Sodium,Porcine 5,000 UNIT/ML VIAL 5000 UNIT SUBCUT (03:40)
[2022-01-06] MEDS: Dextrose 5 % 1,000 ML 100 ML IVCONT (03:41)
[2022-01-06 06:11] LABS: Glucose, Whole Blood 65 mg/dL (60-115)
[2022-01-06] MEDS: Acetaminophen Oral Liquid 650 MG/20.3 ML SOLUTION G-TUBE (06:20)
[2022-01-06] MEDS: ondansetron HCL 4 MG/2 ML VIAL IVPUSH (06:23)
--- NOTE | 2022-01-06 06:31 | PC.NURSE ---
Pt is rigid, grimacing, screaming. nurse send a tiger text to the hospitalist Dr. Echols to order pain meds. Tylenol was given and zofran d/t pt has been vomiting and grimacing/sobbing. the Tylenol was given in 6ml syringe into the G-tube. Pt is on the telemetry and it shows Tachy 120. Pt was change and he is incontinence and non verbal. Pt was put on the incontinence wrap, change and change position. Pt IVF are running go n his left forearm.
--- NOTE | 2022-01-06 06:44 | PC.NURSE ---
Pt's am member, Vincent Davis , Ajnel . Pt was feed by his [employer] at night and left the monitor running. RN stop the feed d/t patient was continuously projectile vomiting.
--- NOTE | 2022-01-06 07:38 | P.HPHOSP_ITS ---
History of Present Illness Date of Service: 01/06/22 Chief Complaint: cough, tachycardia 26-year-old male with past medical history of cerebral palsy chronically bed- bound, completely dependent, microcephaly, nonverbal, history of quadriplegia, seizure disorder, who comes in to the hospital after he was noted to have productive cough and tachycardia at primary care physician's office. Patient's stepfather at bedside reports that he chronically has tachycardia, but has been noted to have increased cough with no other acute symptoms. They report no fever, and no other evidence of acute changes. Patient has a PEG tube for feeding. Home unable to obtain review of systems Vitals are significant for heart rate of 131 which on review of previous vitals chronically elevated, blood pressure of 100/57, normalized on subsequent measuring, Labs are significant for WBC count of 9.4, hemoglobin of 1.1, hematocrit 34.8, sodium of 146, creatinine of 3.52 with a baseline of around 1, calcium of 12.2, alk-phos of 301, COVID-19 negative, influenza A/B, RSV negative. Abdominal pelvic CT showed 5 mm stone in the left ureter with mild hydroureter and pelviectasis Chest CT -ve for any consolidation or pleural effusion Pt had 1 episode of vomiting in the ED Review of Systems Review of Systems: Yes all other systems are reviewed and are negative [facility] Medical History Cerebral palsy Hypercalcemia Osteoporosis Quadriplegia Seizure disorder Vitamin D deficiency Family History Mother Anemia Father No problems noted. 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) Alcohol intake: never Patient Tobacco Use Status: Never used Tobacco Advance Directives: No Advance Directives Information Provided: Yes service: No Current occupational status: disabled Meds Allergies Allergy/AdvReac Type Severity Reaction Status Date / Time amoxicillin [AMOXICILLIN] Allergy Unknown RASH Verified 03/01/21 13:06 Active Medications: Current Medications Acetaminophen (Acetaminophen Oral Liquid 650 Mg/20.3 Ml Solution) 650 mg G-TUBE Q6H PRN PRN Reason: Pain, Mild (Pain Scale 1-3) Last Admin: 01/06/22 06:20 Dose: 650 mg Docusate Sodium (Docusate Sodium 100 Mg Capsule) 100 mg PO DAILY PRN PRN Reason: Constipation Heparin Sodium (Porcine) (Heparin Sodium,Porcine 5,000 Unit/Ml Vial) 5,000 unit SUBCUT Q12H [facility] Last Admin: 01/06/22 03:40 Dose: 5,000 unit Dextrose (D5w) 1,000 mls @ 100 mls/hr IVCONT .Q10H [facility] Last Admin: 01/06/22 03:41 Dose: 100 mls/hr Ondansetron HCl (Ondansetron Hcl 4 Mg/2 Ml Vial) 4 mg IVPUSH Q8H PRN PRN Reason: Nausea and Vomiting Last Admin: 01/06/22 06:23 Dose: 4 mg Pharmacy Consult (Consult Rx Perform Med Rec) 1 each MISCELLANE ONCE PRN PRN Reason: Consult order Sodium Chloride (0.9 % Sodium Chloride Flush 3 Ml Syringe) 3 ml IVFLUSH QSHIFT [facility] Home Medications Medication Instructions Recorded Confirmed Last Taken Type KetoVie See Rx Instructions .Route .COMPLEX 01/18/21 03/01/21 01/18/21 History Sodium Bicarb 28 meq G-tube DAILY 01/18/21 03/01/21 Unknown History albuterol sulfate 5 mg/mL(0.5 %) 5 mg inhalation Q4H PRN Wheezing 01/18/21 03/01/21 Unknown History solution for nebulization baclofen 500 mcg/mL intrathecal 80 mcg intrathecal DAILY 01/18/21 03/01/21 Unknown History solution cholecalciferol (vitamin D3) 25 25 mcg feeding tube TID 01/18/21 03/01/21 Unknow n History mcg (1,000 unit) tablet (Vitamin D3) diazepam 10 mg rectal kit 5 mg [place] DAILY PRN Seizures 01/18/21 03/01/21 Unknown History lanolin alcohols-mineral 1 appl topical BID 01/18/21 03/01/21 Unknown History oil-w.petrolatum-ceresin topical cream (Eucerin topical cream) lansoprazole 30 mg delayed 30 mg feeding tube DAILY 01/18/21 03/01/21 Unknown History release,disintegrating tablet levocarnitine 330 mg tablet 660 mg feeding tube BID 01/18/21 03/01/21 Unknown History melatonin 1 mg tablet 1 mg feeding tube BEDTIME 01/18/21 03/01/21 Unknown History multivitamin 1 tab feeding tube DAILY 01/18/21 03/01/21 Unknown History polyethylene glycol 3350 17 17 g feeding tube DAILY 01/18/21 03/01/21 Unknown History gram/dose oral powder polyethylene glycol 3350 17 17 g PO DAILY 03/01/21 03/01/21 Unknown History gram/dose oral powder (Miralax) Physical Exam Vital Signs and Narrative: Vital Signs: Last Vital Signs Temp 98.5 F 01/06/22 02:25 Pulse 128 H 01/06/22 03:38 Resp 19 01/06/22 03:38 BP 121/78 01/06/22 03:38 Pulse Ox 100 01/06/22 03:38 O2 Del Method 01/06/22 03:38 BMI result Body Mass Index 17.7 Const: General: no acute distress Resp: Effort & Inspection: normal respiratory effort Cardio: Rhythm: regular rhythm GI: Palpation (GI): Soft to palpation Neuro: Cognition (Neuro): normal cognition Extrem: Other: contractures General: Yes no pedal edema Results Labs CBC and Chem 7: 01/05/22 18:24 01/05/22 23:03 Labs: Laboratory Results - last 24 hr 01/05/22 01/05/22 01/05/22 18:10 18:24 18:24 MCV 93.0 MCH 29.7 MCHC 31.9 RDW 13.6 Plt Count 279 MPV 11.1 Immature Gran % (Auto) 1.0 H Neut % (Auto) 68.7 Lymph % (Auto) 16.8 L Elliott % (Auto) 10.2 Eos % (Auto) 3.0 Baso % (Auto) 0.3 Lymph # (Auto) 1.6 Elliott # (Auto) 1.0 Eos # (Auto) 0.3 Baso # (Auto) 0.0 Abs Immat Gran (auto) 0.09 H Absolute Neuts (auto) 6.5 Absolute Nucleated RBC 0.000 Nucleated RBC % (auto) 0.0 Anion Gap 27 H Estim Creat Clear Calc 17.3 Estimated GFR 21 POC Glucose Random Glucose 90 Lactic Acid Calcium 12.2 H D Magnesium 2.4 Total Bilirubin 0.4 AST 13 ALT 11 Alkaline Phosphatase 301 H D B-Natriuretic Peptide Total Protein 7.6 Albumin 4.2 COVID-19 (MANN) Negative COVID-19 Clin Com See Note Influenza Type A (PCR) Influenza Type B (PCR) RSV RNA Qual (PCR) SARS-CoV-2 RNA (RT-PCR) 01/05/22 01/05/22 01/05/22 18:24 18:25 18:30 MCV MCH MCHC RDW Plt Count MPV Immature Gran % (Auto) Neut % (Auto) Lymph % (Auto) Elliott % (Auto) Eos % (Auto) Baso % (Auto) Lymph # (Auto) Elliott # (Auto) Eos # (Auto) Baso # (Auto) Abs Immat Gran (auto) Absolute Neuts (auto) Absolute Nucleated RBC Nucleated RBC % (auto) Anion Gap Estim Creat Clear Calc Estimated GFR POC Glucose Random Glucose Lactic Acid 0.7 Calcium Magnesium Total Bilirubin AST ALT Alkaline Phosphatase B-Natriuretic Peptide < 10 Total Protein Albumin COVID-19 (MANN) COVID-19 Clin Com Influenza Type A (PCR) NEGATIVE Influenza Type B (PCR) NEGATIVE RSV RNA Qual (PCR) NEGATIVE SARS-CoV-2 RNA (RT-PCR) NEGATIVE 01/05/22 01/06/22 23:03 03:39 MCV MCH MCHC RDW Plt Count MPV Immature Gran % (Auto) Neut % (Auto) Lymph % (Auto) Elliott % (Auto) Eos % (Auto) Baso % (Auto) Lymph # (Auto) Elliott # (Auto) Eos # (Auto) Baso # (Auto) Abs Immat Gran (auto) Absolute Neuts (auto) Absolute Nucleated RBC Nucleated RBC % (auto) Anion Gap 25 H Estim Creat Clear Calc 20.5 Estimated GFR 26 POC Glucose 65 Random Glucose 73 Lactic Acid Calcium 10.2 D Magnesium Total Bilirubin AST ALT Alkaline Phosphatase B-Natriuretic Peptide Total Protein Albumin COVID-19 (MANN) COVID-19 Clin Com Influenza Type A (PCR) Influenza Type B (PCR) RSV RNA Qual (PCR) SARS-CoV-2 RNA (RT-PCR) Imaging Radiologist's Impressions: Impressions Chest X-Ray 01/05/22 17:20 IMPRESSION: Minimal hazy opacity in the retrocardiac left lung base, likely mild atelectasis. Cannot exclude small volume aspiration or early pneumonia in the appropriate clinical setting. Chest CT 01/05/22 21:43 IMPRESSION: 1. No airspace consolidation or pleural effusions. 2. Small 5 mm left upper lobe pulmonary nodule, likely benign or inflammatory. 3. Small nonobstructing bilateral renal calculi. 4. Dextroconvex scoliotic curvature of the lumbar spine with ankylosis of the posterior elements consistent with prior fusion. Abdomen/Pelvis CT 01/06/22 01:27 IMPRESSION: * There is a 5 mm stone in the distal LEFT ureter associated mild upstream hydroureter and pelviectasis. * Bilateral nonobstructive intrarenal calculi. Assessment and Plan (1) SILVIO (acute kidney injury): Status: Acute (2) Hydronephrosis with renal calculous obstruction: Status: Acute (3) Dehydration: Status: Acute (4) Nausea & vomiting: Status: Acute (5) Tachycardia: Status: Acute Plan 6-year-old male with past medical history of cerebral past see completely bedbound presents to the hospital with tachycardia, and cough found to have SILVIO and obstructing stone # SILVIO - likely secondary to post obstruction in the setting of obstructing ureter stone - will treat with IV fluid - urology consult - plan for stent placement - follow BMP # nausea vomiting - likely secondary to above - will keep NPO - antiemetics - no evidence of aspiration on CT of the chest or chest x-ray # hydronephrosis with obstructing ureter stone - urology consult - IV antibiotic - follow culture # tachycardia - chronic sinus tachycardia - UA pending but acute infection is unlikely, has no leukocytosis, no lactic acidosis - monitor heart rate #Aspiration pna? - no evidence of aspiration on CT or chest xray - pt will be on abx for kidney stone - montor - Has G-tibe in place DVT ppx: SCDs in anticipation of stent Quality Stroke Does the patient have a stroke diagnosis?: No VTE Prior VTE?: No VTE Risk Level:: Medical - moderate - high VTE Device Contraindication: Treatment Not Indicated VTE Drug Contraindication: N/A - Med Ordered
--- NOTE | 2022-01-06 08:24 | PM.UROCN ---
History of Present Illness Consult details Consult date: 01/06/22 Narrative: 26-year-old male with past medical history of cerebral palsy chronically bed-bound, completely dependent, microcephaly, nonverbal, history of quadriplegia, seizure disorder, who comes in to the hospital after he was noted to have productive cough and tachycardia at primary care physician's office.? No reports of fever, Patient has a PEG tube for feeding. Labs note JENIFFER, creat 3.52, CT imaging was done noting mild left hydro due to obstructing ureteral stone. CT imaging Pertinent findings KIDNEYS AND URETERS: The kidneys are normal in size, shape, and attenuation. Bilateral nonobstructive intrarenal calculi number at least 9 within the left kidney and 5 within the right kidney measuring 7 mm in the lower pole left kidney. There is a 5 mm calculus distal left ureter, approximately 4 cm from the ureterovesical junction associated mild upstream hydroureter and pelviectasis. No perinephric stranding. BLADDER: Unremarkable.? Review of Systems Review of Systems: limited ROS obtained from admitting H&P as pt nonverbal PMFSH Past Medical History Medical History Cerebral palsy Hypercalcemia Osteoporosis Quadriplegia Seizure disorder Vitamin D deficiency Family History Family History Mother Anemia Father No problems noted. Surgical History Surgical History Gastrointestinal tube present History of back surgery Presence of intrathecal baclofen pump Social History Social History Household Members: Family and Children Household Members Other:: twin 3 y.o sisters, mother, grandmother Housing: Apartment Housing Other:: handicap accessible Do you presently have visiting nurse or other home services: Yes ([employer] 52 hr/wk) Alcohol intake: never Patient Tobacco Use Status: Never used Tobacco Advance Directives: No Advance Directives Information Provided: Yes service: No Current occupational status: disabled Meds Allergies Allergy/AdvReac Type Severity Reaction Status Date / Time amoxicillin [AMOXICILLIN] Allergy Unknown RASH Verified 03/01/21 13:06 Active Medications: Current Medications Acetaminophen (Acetaminophen Oral Liquid 650 Mg/20.3 Ml Solution) 650 mg G-TUBE Q6H PRN PRN Reason: Pain, Mild (Pain Scale 1-3) Last Admin: 01/06/22 06:20 Dose: 650 mg Docusate Sodium (Docusate Sodium 100 Mg Capsule) 100 mg PO DAILY PRN PRN Reason: Constipation Dextrose (D5w) 1,000 mls @ 100 mls/hr IVCONT .Q10H [facility] Last Admin: 01/06/22 03:41 Dose: 100 mls/hr Ceftriaxone Sodium 1 gm/ (Sodium Chloride) 50 mls @ 100 mls/hr IV Q24H [facility] Morphine Sulfate (Morphine Sulfate 4 Mg/Ml Cartridge) 4 mg IVPUSH Q6H PRN; Protocol PRN Reason: Pain, Severe (Pain Scale 7-10) Ondansetron HCl (Ondansetron Hcl 4 Mg/2 Ml Vial) 4 mg IVPUSH Q8H PRN PRN Reason: Nausea and Vomiting Last Admin: 01/06/22 06:23 Dose: 4 mg Pharmacy Consult (Consult Rx Perform Med Rec) 1 each MISCELLANE ONCE PRN PRN Reason: Consult order Sodium Chloride (0.9 % Sodium Chloride Flush 3 Ml Syringe) 3 ml IVFLUSH QSHIFT [facility] Last Admin: 01/06/22 07:58 Dose: Not Given Home Medications Medication Instructions Recorded Confirmed Last Taken Type KetoVie See Rx Instructions .Route .COMPLEX 01/18/21 01/06/22 01/18/21 History albuterol sulfate 5 mg/mL(0.5 %) 5 mg inhalation Q4H PRN Wheezing 01/18/21 01/06/22 01/05/22 History solution for nebulization baclofen 500 mcg/mL intrathecal See Rx Instructions .Route .COMPLEX 01/18/21 01/06/22 01/05/22 History solution cholecalciferol (vitamin D3) 25 25 mcg feeding tube TID 01/18/21 01/06/22 01/05/22 History mcg (1,000 unit) tablet (Vitamin D3) diazepam 10 mg rectal kit 5 mg [place] DAILY PRN Seizures 01/18/21 01/06/22 01/05/22 History lanolin alcohols-mineral 1 appl topical BID 01/18/21 01/06/22 01/05/22 History oil-w.petrolatum-ceresin topical cream (Eucerin topical cream) levocarnitine 330 mg tablet 660 mg feeding tube BID 01/18/21 01/06/22 01/05/22 History melatonin 1 mg tablet 1 mg feeding tube BEDTIME 01/18/21 01/06/22 01/05/22 History multivitamin 1 tab feeding tube DAILY 01/18/21 01/06/22 01/05/22 History polyethylene glycol 3350 17 17 g feeding tube Q2D@0900 01/18/21 01/06/22 01/05/22 History gram/dose oral powder omeprazole 20 mg capsule,delayed 20 mg feeding tube DAILY@0630 01/06/22 01/06/22 01/05/22 History release Physical Exam Vital Signs: Vital Signs: Last Vital Signs Temp 98.5 F 01/06/22 02:25 Pulse 128 H 01/06/22 03:38 Resp 19 01/06/22 03:38 BP 121/78 01/06/22 03:38 Pulse Ox 100 01/06/22 03:38 O2 Del Method 01/06/22 03:38 BMI result Body Mass Index 17.7 Const: General: no acute distress HEENT: Head: Yes atraumatic Eyes: Conjunctivae: conjunctivae normal Neck: Neck: Yes normal visual inspection Chest: Chest palpation & inspection: normal inspection of the chest Resp: Effort & Inspection: normal respiratory effort Cardio: Jugular venous distension: no JVD GI: Other: baclofen pump in place, peg tube Inspection: Yes normal to inspection Palpation (GI): Soft to palpation : Other: [place] cath in place, no scrotal swelling Penis: normal penis Skin: General skin exam: no rashes or lesions noted Extrem: Other: + contractures of lower extremities General: No pedal edema Psych: Other: nonverbal Results Labs Result diagrams: 01/05/22 18:24 01/06/22 07:50 Labs: Abnormal lab results 01/05/22 01/05/22 01/05/22 Range/Units 18:24 18:24 23:03 RBC 3.74 L D (4.60-5.80) X10*6/uL Hgb 11.1 L D (14.0-18.0) g/dl Hct 34.8 L D (42.0-52.0) % Immature Gran % (Auto) 1.0 H (0.0-0.4) % Lymph % (Auto) 16.8 L (20-40) % Abs Immat Gran (auto) 0.09 H (0.00-0.03) X10*3/uL Sodium 146 H 149 H (135-145) mmol/L Chloride 110 H (96-108) mmol/L Carbon Dioxide 19 L (22-29) mmol/L Anion Gap 27 H 25 H (12-20) BUN 61 H D 54 H (9-16) mg/dL Creatinine 3.52 H 2.97 H (0.5-1.4) mg/dL Calcium 12.2 H D (8.4-10.2) mg/dL Alkaline Phosphatase 301 H D (39-117) U/L Short CBC 01/05/22 Range/Units 18:24 WBC 9.4 (4.8-10.8) X10*3/uL Hgb 11.1 L D (14.0-18.0) g/dl Hct 34.8 L D (42.0-52.0) % Plt Count 279 (160-400) X10*3/uL BMP 01/05/22 01/05/22 18:24 23:03 Sodium 146 H 149 H Potassium 4.1 4.9 Chloride 101 110 H Carbon Dioxide 22 19 L BUN 61 H D 54 H Creatinine 3.52 H 2.97 H Calcium 12.2 H D 10.2 D Liver Function 01/05/22 Range/Units 18:24 Total Bilirubin 0.4 (0.0-1.0) mg/dL AST 13 (5-37) U/L ALT 11 (0-40) U/L Alkaline Phosphatase 301 H D (39-117) U/L Albumin 4.2 (3.5-5.0) g/dL All other labs normal. Imaging Abdomen CT scan report/results: report reviewed Additional studies: Date of Service: 01/06/22 Procedure(s): CT abdomen pelvis wo IV con Accession Number(s): [id number] cc: Milton Coles MD~ EXAMINATION: CT ABDOMEN AND PELVIS WITHOUT CONTRAST? CLINICAL INFORMATION: Vomiting. Elevated creatinine.? COMPARISON: None? FINDINGS: LUNG BASES: The visualized lung bases are unremarkable.? LIVER, GALLBLADDER, AND BILIARY TREE: The liver is normal in size, shape, and attenuation. No focal hepatic lesion or biliary ductal dilatation is present. The gallbladder is unremarkable with no evidence of radiopaque gallstones, gallbladder wall thickening, or obvious pericholecystic inflammatory changes.? PANCREAS: Unremarkable.? SPLEEN: Unremarkable.? ADRENAL GLANDS: Unremarkable.? KIDNEYS AND URETERS: The kidneys are normal in size, shape, and attenuation. Bilateral nonobstructive intrarenal calculi number at least 9 within the left kidney and 5 within the right kidney measuring 7 mm in the lower pole left kidney. There is a 5 mm calculus distal left ureter, approximately 4 cm from the ureterovesical junction associated mild upstream hydroureter and pelviectasis. No perinephric stranding. BLADDER: Unremarkable.? GASTROINTESTINAL TRACT: Gastrostomy tube present within the stomach. Redundancy of the gastric cardia may reflect previous Faustino fundoplication. Moderate rectal stool burden without significant perirectal fat stranding. Remainder of the colon unremarkable. Normal small bowel. Normal appendix.? ABDOMINAL WALL: No significant hernia is appreciated.? LYMPH NODES: Normal. VASCULAR: Unremarkable. PELVIC VISCERA: Unremarkable.? OSSEOUS STRUCTURES: No acute or suspicious osseous abnormalities. Long segment fusion of the thoracolumbar spine? IMPRESSION: *? There is a 5 mm stone in the distal LEFT ureter associated mild upstream hydroureter and pelviectasis. *? Bilateral nonobstructive intrarenal calculi. Assessment and Plan (1) SILVIO (acute kidney injury): Status: Acute SILVIO likely secondary to dehydration, mild left hydro from obstructing stone also present and patient will benefit from stent placement, creat already improving with fluids (2) Hydronephrosis with renal calculous obstruction: Status: Acute (3) Dehydration: Status: Acute Plan Plan for Cystoscopy, Left ureteral stent, possible ureteroscopy, possible laser lithotripsy. Unable to speak with family to obtain consent, currently: 9:18 AM -Calls made to listed family Anjel [phone] left 2 messages, and parent Wanda - no answer and 'voicemail not set up' [facility]. 1208pm called parent Wanda again [phone] no answer 'voice mail not set up' unable to leave message. Hospitalist informed that I have not been able to reach family as yet. Procedures Date of Service Date of Service: 01/06/22
[2022-01-06 08:48] LABS: Anion Gap 18 (12-20); Blood Urea Nitrogen 46 mg/dL (9-16); Calcium 10.5 mg/dL (8.4-10.2); Carbon Dioxide 19 mmol/L (22-29); Chloride 111 mmol/L (96-108); Creatinine Clr Calc Pharmacy 22.9; Estimated Glomerular Filt Rate 29; Glucose Random 114 mg/dL (60-115); Sodium 144 mmol/L (135-145)
[2022-01-06 09:18] LABS: Thyroid Stimulating Hormone 1.05 uIU/mL (0.32-4.0)
[2022-01-06 09:37] LABS: Phosphorus 5.3 mg/dL (2.7-4.5)
--- NOTE | 2022-01-06 10:50 | PHA.MEDREC ---
Pharmacy Consult ? Medication Reconciliation Pharmacy has completed the medication reconciliation. SPOKE WITH PATIENTS MOTHER REGARDING MEDICATIONS PATIENT GETS AT HOME
[2022-01-06 10:53] VITALS: BP 104/73; PULSE 114; RESP 16; O2SAT 100
--- NOTE | 2022-01-06 11:00 | PC.NURSE ---
Incontinent care provided. PT repositioned. Resting without apparent distress. Will continue to observe.
--- NOTE | 2022-01-06 11:31 | MHC.CM.PN ---
Attempted to meet with patient in regards to discharge planning. Patient is currently sleeping. No family present. Will attempt to meet again. Continue to monitor for d/c needs.
--- NOTE | 2022-01-06 13:10 | PC.NURSE ---
PT mother at bedside at this time, aware of plan. PT repositioned, no apparent distress.
--- NOTE | 2022-01-06 14:56 | PM.EVENT ---
Event Note Date of Service: 01/06/22 Event Note: Patient already seen and examined by hospitalist service earlier this morning. no new episode of vomitin cr improivng as well as sodium. Physical exam: Unchanged home H&P. Assessment plan coordinated in H&P note in addition SILVIO possible secondary to obstructive uropathy: Continue hydration dc d5w since hypernatremia improved nephro eval Urology evaluation-possible urological intervention, tried to reach the family not able to talk yet. Hyponatremia seems to be resolved Continue gentle hydration
--- NOTE | 2022-01-06 15:12 | PM.EVENT ---
Event Note Date of Service: 01/06/22 Event Note: Pt seen and examined in the ER Full consult dictated 1. SILVIO _ Perrenal- Poor intake One sided obstruction should not cause SILVIO - CT shows normal R kidney 2. CKD 2 - Baseline 1.0 3. L Ureter 0bstructing stone 4. ? Asp pneumonia 5. Cerebral palsy 6. Hypercalcemia UA Urine [id number] ordered Bladder scan and place fol;y if he is retaining IVF as ordered Antibiotics as per medical teaM PTH AND VIT D LEVELS Check renal func in AM Thx
[2022-01-06] MEDS: Lactated Ringers 1,000 ML 100 ML IVCONT (15:18)
--- NOTE | 2022-01-06 15:22 | PC.NURSE ---
LR hung at 100ml per hr, pt sleeping, resting comfortably, mother at bedside.
[2022-01-06 15:43] VITALS: BP 119/76; PULSE 102; RESP 18; TEMP 36.7; O2SAT 97
[2022-01-06] MEDS: vancomycin HCL 1,000 MG in 0.9 % Sodium Chloride 250 ML 270 MG IV (17:43)
[2022-01-06 18:54] VITALS: BP 113/65; PULSE 126; RESP 18; TEMP 36.3; O2SAT 97
[2022-01-06] MEDS: cefTRIAXone sodium 1 GM in 0.9 % Sodium Chloride 50 ML IV (19:36)
[2022-01-06] MEDS: 0.9 % Sodium Chloride Flush 3 ML SYRINGE IVFLUSH (23:20)
[2022-01-06 23:34] VITALS: BP 112/70; PULSE 118; RESP 18; TEMP 36.8; O2SAT 93
[2022-01-07] VITALS (11 sets, daily range): BP systolic 92–125; BP diastolic 51–73; PULSE 91–119; RESP 15–18; TEMP 35.7–37.1; O2SAT 98–100
[2022-01-07 01:29] LABS: Appearance Urine Clear; Color Urine Yellow; Glucose Urine UA Negative (Negative); Leukocyte Esterase Urine Trace (Negative); Nitrite Urine Negative (Negative); UMIC TRIGGER UACC YES; Urine Blood Trace (Negative); Urine Ketones 15 mg/dL (Negative); Urine Protein 30 (1+) mg/dL (Neg-Trace)
[2022-01-07 01:34] LABS: Bacteria Urine None Seen (None Seen); Squamous Epithelial Cell Urine 0-2 /HPF (0-2); WBC Urine 0-5 /HPF (0-5)
[2022-01-07 01:48] LABS: Creatinine Urine 33.53 mg/dL; Total Protein Urine Random 26 mg/dL (<12)
--- NOTE | 2022-01-07 02:50 | CONS_ITS ---
DATE OF SERVICE: REASON FOR CONSULTATION: Consult requested by the medical team to evaluate and help in management of patient with acute kidney injury and hypercalcemia. HISTORY OF PRESENT ILLNESS: The patient is a 26-year-old male who has cerebral palsy and chronically bed-bound, completely dependent for all ADLs and history obtained from the patient, medical record and patient's mother at the bedside who presents to the hospital with cough and tachycardia. This was noticed by his primary care physician in the office. Apparently, the patient has been chronically tachycardic. He had no fever. He had a PEG tube for feeding and recently had an EGD. In the ER, the patient had a blood pressure 100/57. He was tachycardic with a heart rate of 131. LAB WORK: Showed the patient's hematocrit was 35. His creatinine was elevated at 3.52 from a baseline of around 1.0. Calcium was elevated at 12.2 and alkaline phosphatase of 301. COVID was negative. CT scan of the abdomen showed 5 mm stone in the left ureter with mild hydroureter and pelvic caliectasis. CT scan was negative for any consolidation or pleural effusion. The patient did have one episode of vomiting in the ER. This morning, the patient's creatinine has improved to 2.66. The kidney sizes were normal. PAST MEDICAL HISTORY: History of cerebral palsy, history of hypercalcemia, osteoporosis, quadriplegia, seizure disorder, and vitamin D deficiency. FAMILY HISTORY: Mother with anemia. Father has no major medical problems. REVIEW OF SYSTEMS: Difficult to obtain because of patient's mental status. PAST SURGICAL HISTORY: Patient has G-tube placement, history of back surgery and intrathecal baclofen pump. PERSONAL AND SOCIAL HISTORY: Patient does not smoke or drink. ALLERGIES: PATIENT HAS ALLERGIES TO AMOXICILLIN. HOME MEDICATIONS: Include sodium bicarb via G-tube, baclofen, vitamin D, diltiazem, lansoprazole, levocarnitine 330 mg 2 tablets b.i.d., melatonin, multivitamin, and polyethylene glycol. PHYSICAL EXAMINATION: GENERAL: The patient is resting in the ER bed. He is having cerebral palsy and does not respond. VITAL SIGNS: Blood pressure was 121/78, pulse 128, afebrile. HEENT: Shows pupils equal bilaterally to light. No jugular venous distention is noted. NECK: Supple. CARDIOVASCULAR: System S1, S2 without rub. RESPIRATORY: Mild decreased in the bases. ABDOMEN: Distended in the lower abdominal area. EXTREMITIES: Showed no edema. He has had contracted extremities. LABS: Done recently. WBC 9.4, hemoglobin 11.1, hematocrit 34.8, platelets were 279. Sodium 144, potassium 4.0, chloride 111, CO2 of 19, BUN 46, and creatinine 2.66. Estimated GFR was 29, calcium 10.5, phosphorus 5.3, and albumin of 4.2. Urine studies were not available. COVID was negative. IMPRESSION: 1. A 26-year-old male with acute kidney injury. Acute kidney injury, this patient likely secondary to multifactorial reasons. Clinically, he looks prerenal. He does have obstructive uropathy and one kidney, but solitary obstructive kidney should not cause acute kidney injury unless the other kidney is not working well, but based on the CAT scan, the patient has normal size kidneys both sites. This could be bladder outlet obstruction as well. He was not on any medication which can cause worsening renal function based on the medication list. Based on history, the patient did have nausea and vomiting. 2. Chronic kidney disease stage 2 at baseline. Baseline creatinine around 1.0. 3. History of metabolic acidosis on sodium bicarb. 4. Left ureteric stone with left-sided hydronephrosis and pelvic caliectasis. RECOMMENDATION: 1. At this juncture, I recommend checking a full urinalysis with microscopy. 2. I have ordered spot urine for electrolytes, protein, and creatinine. The patient is apparently going to be seen by Urology and for possible urological intervention in the near future. 3. I agree with IV fluids with LR at the present rate. 4. I also agree with antibiotic management for a possible UTI. 5. I asked the ER nursing staff to bladder scan him and he might require a Cabello catheter based on the residual urine. 6. In regard to hypercalcemia, the patient has history of hypercalcemia in the past and it is unclear if he has primary hyperparathyroidism. His hyperphosphatemia could be due to acute kidney injury. First, I would like to check a PTH level on him. We will also need to check 25-hydroxyvitamin D3 level on this patient. 7. We will continue to follow the patient with you closely. Thank you for allowing me to participate in medical management. MD LISA New/SHANTELL / [phone]
--- NOTE | 2022-01-07 08:57 | HO.ANESPROP2 ---
HPI - Anesthesia Eval Consult details Narrative: left ureter stone PMFSH Active Problems Active Problems: All Active Problems (Updated 01/06/22 @ 08:01 by Milton Coles MD) Tachycardia (Acute) Hydronephrosis with renal calculous obstruction (Acute) Aspiration pneumonia (Acute) Dehydration (Acute) SILVIO (acute kidney injury) (Acute) Nausea & vomiting (Acute) Hypercalcemia (Acute) Vitamin D deficiency (Acute) Osteoporosis (Acute) Past Medical History Medical History Cerebral palsy Hypercalcemia Osteoporosis Quadriplegia Seizure disorder Vitamin D deficiency Family History Family History Mother Anemia Father No problems noted. Family history of problems with anesthesia: No Surgical History Surgical History Gastrointestinal tube present History of back surgery Presence of intrathecal baclofen pump History of Problems with Anesthesia: No Social History Social History Household Members: Family Household Members Other:: twin 3 y.o sisters, mother, grandmother Housing: House Housing Other:: handicap accessible Do you presently have visiting nurse or other home services: Yes ([employer]) Alcohol intake: never Patient Tobacco Use Status: Never used Tobacco service: No Current occupational status: disabled Meds Allergies Allergy/AdvReac Type Severity Reaction Status Date / Time amoxicillin [AMOXICILLIN] Allergy Unknown RASH Verified 03/01/21 13:06 Active Medications: Current Medications Acetaminophen (Acetaminophen Oral Liquid 650 Mg/20.3 Ml Solution) 650 mg G-TUBE Q6H PRN PRN Reason: Pain, Mild (Pain Scale 1-3) Last Admin: 01/06/22 06:20 Dose: 650 mg Albuterol Sulfate (Albuterol Sulfate 2.5 Mg/0.5 Ml Vial.Neb) 5 mg INHALE Q4H PRN PRN Reason: Wheezing Docusate Sodium (Docusate Sodium 100 Mg Capsule) 100 mg PO DAILY PRN PRN Reason: Constipation Ceftriaxone Sodium 1 gm/ (Sodium Chloride) 50 mls @ 100 mls/hr IV Q24H [facility] Last Infusion: 01/06/22 21:25 Dose: Infused Levofloxacin (Levaquin) 500 mg in 100 mls @ 100 mls/hr IV ONCE ONE Stop: 01/07/22 09:59 Lactated Ringer's (Lr) 1,000 mls @ 100 mls/hr IVCONT .Q10H [facility] Last Infusion: 01/07/22 08:47 Dose: 0 mls/hr Vancomycin HCl 750 mg/ Sodium (Chloride) 265 mls @ 265 mls/hr IV Q24H [facility] Melatonin (Melatonin 3 Mg Tablet) 1.5 mg PO BEDTIME [facility] Last Admin: 01/06/22 22:19 Dose: Not Given Morphine Sulfate (Morphine Sulfate 4 Mg/Ml Cartridge) 4 mg IVPUSH Q6H PRN; Protocol PRN Reason: Pain, Severe (Pain Scale 7-10) Multi-Ingred Cream/Lotion/Oil/Oint (Mineral Oil/Petrolatum,White 106 Gm Tube) 1 appl TOPICAL BID [facility]; Protocol Last Admin: 01/06/22 23:19 Dose: Not Given Non-Formulary Medication (Levocarnitine) 660 mg feeding tube BID [facility] Non-Formulary Medication (Baclofen) 80 mcg INTRATHECA DAILY [facility] Ondansetron HCl (Ondansetron Hcl 4 Mg/2 Ml Vial) 4 mg IVPUSH Q8H PRN PRN Reason: Nausea and Vomiting Last Admin: 01/06/22 06:23 Dose: 4 mg Pharmacy Consult (Consult Rx Perform Med Rec) 1 each MISCELLANE ONCE PRN PRN Reason: Consult order Pharmacy Consult (Consult Rx Vancomycin Dosing) 1 each MISCELLANE DAILY PRN PRN Reason: Consult order Polyethylene Glycol (Polyethylene Glycol 3350 17 Gm Powd.Pack) 17 gm G-TUBE Q2D@0900 [facility] Sodium Chloride (0.9 % Sodium Chloride Flush 3 Ml Syringe) 3 ml IVFLUSH QSHIFT [facility] Last Admin: 01/06/22 23:20 Dose: 3 ml Vitamin D (Cholecalciferol (Vitamin D3) 25 Mcg Tablet) 25 mcg G-TUBE TID [facility] Last Admin: 01/07/22 07:14 Dose: Not Given Home Medications Medication Instructions Recorded Confirmed Last Taken Type KetoVie See Rx Instructions .Route .COMPLEX 01/18/21 01/06/22 01/18/21 History albuterol sulfate 5 mg/mL(0.5 %) 5 mg inhalation Q4H PRN Wheezing 01/18/21 01/06/22 01/05/22 History solution for nebulization baclofen 500 mcg/mL intrathecal See Rx Instructions .Route .COMPLEX 01/18/21 01/06/22 01/05/22 History solution cholecalciferol (vitamin D3) 25 25 mcg feeding tube TID 01/18/21 01/06/22 01/05/22 History mcg (1,000 unit) tablet (Vitamin D3) diazepam 10 mg rectal kit 5 mg RI DAILY PRN Seizures 01/18/21 01/06/22 01/05/22 History lanolin alcohols-mineral 1 appl topical BID 01/18/21 01/06/22 01/05/22 History oil-w.petrolatum-ceresin topical cream (Eucerin topical cream) levocarnitine 330 mg tablet 660 mg feeding tube BID 01/18/21 01/06/22 01/05/22 History melatonin 1 mg tablet 1 mg feeding tube BEDTIME 01/18/21 01/06/22 01/05/22 History multivitamin 1 tab feeding tube DAILY 01/18/21 01/06/22 01/05/22 History polyethylene glycol 3350 17 17 g feeding tube Q2D@0900 01/18/21 01/06/22 01/05/22 History gram/dose oral powder omeprazole 20 mg capsule,delayed 20 mg feeding tube DAILY@0630 01/06/22 01/06/22 01/05/22 History release Exam Exam Date and Time: January 07, 2022 0857 Height,Weight and Vital Signs: Height 4 ft 10 in Weight 38.555 kg Last Vital Signs Temp 97.5 F 01/07/22 08:00 Pulse 111 H 01/07/22 08:00 Resp 16 01/07/22 08:00 BP 125/73 01/07/22 08:00 Pulse Ox 100 01/07/22 08:00 O2 Del Method 01/07/22 08:00 Pertinent Lab Results Pertinent Lab Results: Laboratory Tests 01/05/22 01/05/22 01/05/22 18:10 18:24 18:24 WBC 9.4 RBC 3.74 L D Hgb 11.1 L D Hct 34.8 L D MCV 93.0 MCH 29.7 MCHC 31.9 RDW 13.6 Plt Count 279 MPV 11.1 Immature Gran % (Auto) 1.0 H Neut % (Auto) 68.7 Lymph % (Auto) 16.8 L [place] % (Auto) 10.2 Eos % (Auto) 3.0 Baso % (Auto) 0.3 Lymph # (Auto) 1.6 [place] # (Auto) 1.0 Eos # (Auto) 0.3 Baso # (Auto) 0.0 Abs Immat Gran (auto) 0.09 H Absolute Neuts (auto) 6.5 Absolute Nucleated RBC 0.000 Nucleated RBC % (auto) 0.0 Sodium 146 H Potassium 4.1 Chloride 101 Carbon Dioxide 22 Anion Gap 27 H BUN 61 H D Creatinine 3.52 H Estim Creat Clear Calc 17.3 Estimated GFR 21 POC Glucose Random Glucose 90 Lactic Acid Calcium 12.2 H D Phosphorus Magnesium 2.4 Total Bilirubin 0.4 AST 13 ALT 11 Alkaline Phosphatase 301 H D B-Natriuretic Peptide Total Protein 7.6 Albumin 4.2 TSH Urine Color Urine Appearance Urine pH Ur Specific [place] Urine Protein Urine Glucose (UA) Urine Ketones Urine Blood Urine Nitrite Ur Leukocyte Esterase Urine RBC Urine WBC Ur Squamous Epith Cells Urine Bacteria Hyaline Casts U Random Total Protein Ur Random Sodium Urine Creatinine COVID-19 (MANN) Negative COVID-19 Clin Com See Note Influenza Type A (PCR) Influenza Type B (PCR) RSV RNA Qual (PCR) SARS-CoV-2 RNA (RT-PCR) 01/05/22 01/05/22 01/05/22 18:24 18:25 18:30 WBC RBC Hgb Hct MCV MCH MCHC RDW Plt Count MPV Immature Gran % (Auto) Neut % (Auto) Lymph % (Auto) [place] % (Auto) Eos % (Auto) Baso % (Auto) Lymph # (Auto) [place] # (Auto) Eos # (Auto) Baso # (Auto) Abs Immat Gran (auto) Absolute Neuts (auto) Absolute Nucleated RBC Nucleated RBC % (auto) Sodium Potassium Chloride Carbon Dioxide Anion Gap BUN Creatinine Estim Creat Clear Calc Estimated GFR POC Glucose Random Glucose Lactic Acid 0.7 Calcium Phosphorus Magnesium Total Bilirubin AST ALT Alkaline Phosphatase B-Natriuretic Peptide < 10 Total Protein Albumin TSH Urine Color Urine Appearance Urine pH Ur Specific [place] Urine Protein Urine Glucose (UA) Urine Ketones Urine Blood Urine Nitrite Ur Leukocyte Esterase Urine RBC Urine WBC Ur Squamous Epith Cells Urine Bacteria Hyaline Casts U Random Total Protein Ur Random Sodium Urine Creatinine COVID-19 (MANN) COVID-19 Clin Com Influenza Type A (PCR) NEGATIVE Influenza Type B (PCR) NEGATIVE RSV RNA Qual (PCR) NEGATIVE SARS-CoV-2 RNA (RT-PCR) NEGATIVE 01/05/22 01/06/22 01/06/22 23:03 03:39 07:50 WBC RBC Hgb Hct MCV MCH MCHC RDW Plt Count MPV Immature Gran % (Auto) Neut % (Auto) Lymph % (Auto) [place] % (Auto) Eos % (Auto) Baso % (Auto) Lymph # (Auto) [place] # (Auto) Eos # (Auto) Baso # (Auto) Abs Immat Gran (auto) Absolute Neuts (auto) Absolute Nucleated RBC Nucleated RBC % (auto) Sodium 149 H 144 Potassium 4.9 4.0 Chloride 110 H 111 H Carbon Dioxide 19 L 19 L Anion Gap 25 H 18 BUN 54 H 46 H Creatinine 2.97 H 2.66 H Estim Creat Clear Calc 20.5 22.9 Estimated GFR 26 29 POC Glucose 65 Random Glucose 73 114 D Lactic Acid Calcium 10.2 D 10.5 H Phosphorus 5.3 H Magnesium Total Bilirubin AST ALT Alkaline Phosphatase B-Natriuretic Peptide Total Protein Albumin TSH 1.05 Urine Color Urine Appearance Urine pH Ur Specific [place] Urine Protein Urine Glucose (UA) Urine Ketones Urine Blood Urine Nitrite Ur Leukocyte Esterase Urine RBC Urine WBC Ur Squamous Epith Cells Urine Bacteria Hyaline Casts U Random Total Protein Ur Random Sodium Urine Creatinine COVID-19 (MANN) COVID-19 Clin Com Influenza Type A (PCR) Influenza Type B (PCR) RSV RNA Qual (PCR) SARS-CoV-2 RNA (RT-PCR) 01/07/22 01/07/22 01:16 01:16 WBC RBC Hgb Hct MCV MCH MCHC RDW Plt Count MPV Immature Gran % (Auto) Neut % (Auto) Lymph % (Auto) [place] % (Auto) Eos % (Auto) Baso % (Auto) Lymph # (Auto) [place] # (Auto) Eos # (Auto) Baso # (Auto) Abs Immat Gran (auto) Absolute Neuts (auto) Absolute Nucleated RBC Nucleated RBC % (auto) Sodium Potassium Chloride Carbon Dioxide Anion Gap BUN Creatinine Estim Creat Clear Calc Estimated GFR POC Glucose Random Glucose Lactic Acid Calcium Phosphorus Magnesium Total Bilirubin AST ALT Alkaline Phosphatase B-Natriuretic Peptide Total Protein Albumin TSH Urine Color Yellow Urine Appearance Clear Urine pH 6.0 Ur Specific [place] 1.010 Urine Protein 30 (1+) H Urine Glucose (UA) Negative Urine Ketones 15 Urine Blood Trace H Urine Nitrite Negative Ur Leukocyte Esterase Trace H Urine RBC 3-5 H Urine WBC 0-5 Ur Squamous Epith Cells 0-2 Urine Bacteria None Seen Hyaline Casts 3-5 U Random Total Protein 26 H Ur Random Sodium 77.0 Urine Creatinine 33.53 COVID-19 (MANN) COVID-19 Clin Com Influenza Type A (PCR) Influenza Type B (PCR) RSV RNA Qual (PCR) SARS-CoV-2 RNA (RT-PCR) Airway TM Dist: >3cm Loose/Missing/Broken Teeth: No Heart: RRR, tachy Lungs: CTA Assessment and Plan Assessment Anesthesia Assessment: Anesthesia Plan Discussed and Chart Reviewed Final Anesthetic Review Family History of Problems with Anesthesia: No History of Problems with Anesthesia: No NPO: Yes ASA Class: III Final Preanesthetic Review: No Changes in Pt Med Stat, Meds/Allgs Chart Reviewed, Consent Obtained/Reviewed and Anes Risks/Benef Reviewed Patient Risk: Intermediate Procedure Risk: Low Anesthetic Plan Anesthetic Plan: GA Disposition: Standard PACU
--- NOTE | 2022-01-07 09:05 | MHC.SHP ---
Pre-Procedural Eval Section A Date of Service: 01/07/22 The patient is an INPATIENT: Yes Section B Chief Complaint: SILVIO, Hypernatremia Allergies: Allergies Allergy/AdvReac Type Severity Reaction Status Date / Time amoxicillin [AMOXICILLIN] Allergy Unknown RASH Verified 03/01/21 13:06 Plan Diagnosis/Plan: Unchanged I have reviewed the history and physical and performed a pertinent physical examination on my patient. No changes have occurred unless specified. Plan for Cystoscopy, Lefet ureteral stent, possible ureteroscopy, possible laser lithotripsy. Risks discussed included but not limited to, blood in the urine, possible need to repeat procedure if stone is not completely fragmented, Irritative voiding symptoms, bladder spasms, urgency, blood in urine.
--- NOTE | 2022-01-07 11:19 | HO.PM.IMPN ---
Subjective Subjective Date of Service: 01/07/22 Interval History: SILVIO, obstructive uropathy, bacteremia Review of Systems Patient seems similar to yesterday more comfortable Not in any distress, nonverbal, no fever Physical Exam Vital Signs: Vital Signs: Last Vital Signs Temp 97.5 F 01/07/22 08:00 Pulse 111 H 01/07/22 08:00 Resp 16 01/07/22 08:00 BP 125/73 01/07/22 08:00 Pulse Ox 100 01/07/22 08:00 O2 Del Method 01/07/22 08:00 BMI result Body Mass Index 17.7 Appearance: awake ,seems at baseline.? cvs: rrr, [id number] , no murmur res: mild diminshed at bases , erick or wheezing abd: no rebound or guarding ,nt, bs present. ext pulses present , no cyanosis. neuro: axo3 , nonfocal. Objective Data Active Medications Acetaminophen (Acetaminophen Oral Liquid 650 Mg/20.3 Ml Solution) 650 mg G-TUBE Q6H PRN PRN Reason: Pain, Mild (Pain Scale 1-3) Last Admin: 01/06/22 06:20 Dose: 650 mg Documented By: ROSHNI Albuterol Sulfate (Albuterol Sulfate 2.5 Mg/0.5 Ml Vial.Neb) 5 mg INHALE Q4H PRN PRN Reason: Wheezing Docusate Sodium (Docusate Sodium 100 Mg Capsule) 100 mg PO DAILY PRN PRN Reason: Constipation Ceftriaxone Sodium 1 gm/ (Sodium Chloride) 50 mls @ 100 mls/hr IV Q24H [facility] Last Infusion: 01/06/22 21:25 Dose: 100 mls/hr Documented By: GALILEO Lactated Ringer's (Lr) 1,000 mls @ 100 mls/hr IVCONT .Q10H [facility] Last Infusion: 01/07/22 08:47 Dose: 0 mls/hr Documented By: GAY Vancomycin HCl 750 mg/ Sodium (Chloride) 265 mls @ 265 mls/hr IV Q24H [facility] Melatonin (Melatonin 3 Mg Tablet) 1.5 mg PO BEDTIME [facility] Last Admin: 01/06/22 22:19 Dose: Not Given Documented By: GALILEO Non-Admin Reason: NPO Morphine Sulfate (Morphine Sulfate 4 Mg/Ml Cartridge) 4 mg IVPUSH Q6H PRN; Protocol PRN Reason: Pain, Severe (Pain Scale 7-10) Multi-Ingred Cream/Lotion/Oil/Oint (Mineral Oil/Petrolatum,White 106 Gm Tube) 1 appl TOPICAL BID [facility]; Protocol Last Admin: 01/07/22 10:13 Dose: Not Given Documented By: GAY Non-Admin Reason: in [place] Non-Formulary Medication (Levocarnitine) 660 mg feeding tube BID [facility] Non-Formulary Medication (Baclofen) 80 mcg INTRATHECA DAILY [facility] Ondansetron HCl (Ondansetron Hcl 4 Mg/2 Ml Vial) 4 mg IVPUSH Q8H PRN PRN Reason: Nausea and Vomiting Last Admin: 01/06/22 06:23 Dose: 4 mg Documented By: ROSHNI Pharmacy Consult (Consult Rx Perform Med Rec) 1 each MISCELLANE ONCE PRN PRN Reason: Consult order Pharmacy Consult (Consult Rx Vancomycin Dosing) 1 each MISCELLANE DAILY PRN PRN Reason: Consult order Polyethylene Glycol (Polyethylene Glycol 3350 17 Gm Powd.Pack) 17 gm G-TUBE Q2D@0900 [facility] Sodium Chloride (0.9 % Sodium Chloride Flush 3 Ml Syringe) 3 ml IVFLUSH QSHIFT [facility] Last Admin: 01/07/22 09:35 Dose: Not Given Documented By: GAY Non-Admin Reason: No Access Vitamin D (Cholecalciferol (Vitamin D3) 25 Mcg Tablet) 25 mcg G-TUBE TID [facility] Last Admin: 01/07/22 07:14 Dose: Not Given Documented By: GAY Non-Admin Reason: NPO Labs CBC & Chem 7: 01/05/22 18:24 01/06/22 07:50 Labs: Laboratory Results - last 24 hr 01/07/22 01/07/22 01:16 01:16 Urine Color Yellow Urine Appearance Clear Urine pH 6.0 Ur Specific [place] 1.010 Urine Protein 30 (1+) H Urine Glucose (UA) Negative Urine Ketones 15 Urine Blood Trace H Urine Nitrite Negative Ur Leukocyte Esterase Trace H Urine RBC 3-5 H Urine WBC 0-5 Ur Squamous Epith Cells 0-2 Urine Bacteria None Seen Hyaline Casts 3-5 U Random Total Protein 26 H Ur Random Sodium 77.0 Urine Creatinine 33.53 Microbiology Microbiology Results: Microbiology 01/05/22 18:24 Blood Culture - Final Blood - Venous Coag negative Staphylococcus 01/05/22 18:10 Blood Culture - Preliminary Blood - Venous No growth after 24 hours. Assessment and Plan (1) Tachycardia: Status: Acute (2) SILVIO (acute kidney injury): Status: Acute (3) Nausea & vomiting: Status: Acute (4) Aspiration pneumonia: Status: Acute (5) Hydronephrosis with renal calculous obstruction: Status: Acute (6) Obstructive uropathy: Status: Acute Plan 26-year-old male with past medical history of cerebral past see completely bedbound presents to the hospital with tachycardia, and cough found to have SILVIO and obstructing stone # SILVIO - likely secondary to post obstruction in the setting of obstructing ureter stone improving with IV fluid - urology consult-plan for urology intervention. - follow BMP # nausea vomiting: no new episode - likely secondary to above. - antiemetics - no evidence of aspiration on CT of the chest or chest x-ray may need to start feeding # hydronephrosis with obstructing ureter stone - IV antibiotic - follow culture urology [place] # tachycardia - chronic sinus tachycardia - UA pending but acute infection is unlikely, has no leukocytosis, no lactic acidosis - monitor heart rate #Aspiration pna? - no evidence of aspiration on CT or chest xray - pt will be on abx for kidney stone - montor - Has G-tibe in place we will continue antibiotics until blood culture comes 48 hr neg hold vanco since coagulase negative Staph may be contamination. DVT ppx: SCDs in anticipation of stent inpatient need: Obstructive uropathy and SILVIO need IV hydration and urological workup as well at intervention. Quality Stroke Does the patient have a stroke diagnosis?: No VTE Prior VTE?: No VTE Risk Level:: Medical - moderate - high VTE Device Contraindication: Treatment Not Indicated VTE Drug Contraindication: N/A - Med Ordered
--- NOTE | 2022-01-07 12:06 | W.PM.OPN ---
Operative Note Operative Note Date of Service: 01/07/22 Narrative: PreOperative Diagnosis:?? Left Ureteral stone, Left hydronephrosis Post Operative Diagnosis:?? Left Ureteral stone, Left hydronephrosis Procedure: cystoscopy, Left retrograde Left ureteral stent placement Surgeon:?Dr Blas Rausch Anesthesia:? General Indications for procedure: 26-year-old male with past medical history of cerebral palsy chronically bed-bound, completely dependent, microcephaly, nonverbal, history of quadriplegia, seizure disorder, with symptoms including nausea vomitting. CT imaging was done noting left hydro due to obstructing ureteral stone, several bilateral nonobstructing kidney stones also noted on CT. Procedure: After informed consent was verified the patient was brought to the operating placed on the OR table in supine position.? General Anesthesia was administered per protocol.? The patient was carefully placed in lithotomy position, due to significant lower extremity contractures positioning was difficult. The patient was prepped and draped in the usual sterile fashion.? Safety pause time-out and side of surgery confirmed.? Antibiotics confirmed. A 22 Nepalese cystoscope was inserted transurethrally, the bulbous urethra noted some narrowing, so a 16 fr flexible cystoscope was used and passed transurethrally into the bladder and an amplatz guide wire was passed through the flexible cystoscope, after removing the flexible cystoscope the 22 equatorial guinean rigid cystoscope was passed over the guide wire into the bladder. The prostatic urethra was nonobstructive. The bladder was visualized.? Both ureteric orifices were in normal position. There was edema noted at the left ureteral orifice. The? left ureteric orifice was cannulated? and a retrograde examination was performed, A hydrophilic guidewire was placed up to the level of the renal pelvis under fluoroscopy. The open-ended catheter was passed over the guide wire, after removing the guide wire a retrograde was done. the guide wire was replaced and A? 6 Nepalese by 24cm length stent was placed into the ureter and renal pelvis under a combination of fluoroscopy and direct visualization. The bladder was emptied.? The rigid cystoscope was removed. ?A 16 fr ashby was placed. 5 cc balloon. The patient tolerated the procedure well and was brought to the recovery room in stable condition. Complications: None Drains: Ureteral stent and ashby as dictated above
[2022-01-07] MEDS: Lactated Ringers 1,000 ML 100 ML IVCONT ×2 (13:19→21:41)
--- NOTE | 2022-01-07 13:32 | P.PNNP_ITS ---
Subjective Subjective Date of Service: 01/07/22 Interval history: SILVIO, obstructive uropathy, bacteremia Physical Exam Vital Signs: Vital Signs: Last Vital Signs Temp 98.7 F 01/07/22 12:25 Pulse 98 01/07/22 12:25 Resp 16 01/07/22 12:25 BP 102/64 01/07/22 12:25 Pulse Ox 99 01/07/22 12:25 O2 Del Method 01/07/22 12:25 O2 Flow Rate 2 01/07/22 12:10 BMI result Body Mass Index 17.7 Appearance: awake ,seems at baseline.? cvs: [id number], [id number] , no murmur res: mild diminshed at bases , erick or wheezing abd: no rebound or guarding ,nt, bs present. ext pulses present , no cyanosis. neuro: axo3 , nonfocal. Objective Data Labs CBC & Chem 7: 01/05/22 18:24 01/06/22 07:50 Labs: Laboratory Results - last 24 hr 01/07/22 01/07/22 01:16 01:16 Urine Color Yellow Urine Appearance Clear Urine pH 6.0 Ur Specific [place] 1.010 Urine Protein 30 (1+) H Urine Glucose (UA) Negative Urine Ketones 15 Urine Blood Trace H Urine Nitrite Negative Ur Leukocyte Esterase Trace H Urine RBC 3-5 H Urine WBC 0-5 Ur Squamous Epith Cells 0-2 Urine Bacteria None Seen Hyaline Casts 3-5 U Random Total Protein 26 H Ur Random Sodium 77.0 Urine Creatinine 33.53 Microbiology Microbiology Results: Microbiology 01/05/22 18:24 Blood - Venous Blood Culture - Final Coag negative Staphylococcus 01/05/22 18:10 Blood - Venous Blood Culture - Preliminary No growth after 24 hours. Procedures Date of Service Date of Service: 01/07/22 Assessment & Plan Assessment and plan (1) SILVIO (acute kidney injury): Status: Acute (2) Obstructive uropathy: Status: Acute (3) Hydronephrosis with renal calculous obstruction: Status: Acute Plan 1. A 26-year-old male with acute kidney injury.? Acute kidney injury, this patient likely secondary to multifactorial reasons.? Clinically, he looks prerenal.? He does have obstructive uropathy and one kidney, but solitary obstructive kidney should not cause acute kidney injury unless the other kidney is not working well, but based on the CAT scan, the patient has normal size kidneys both sites.? This could be bladder outlet obstruction as well.? He was not on any medication which can cause worsening renal function based on the medication list.? Based on history, the patient did have nausea and vomiting. 2. Chronic kidney disease stage 2 at baseline.? Baseline creatinine around 1.0. 3. History of metabolic acidosis on sodium bicarb. 4. Left ureteric stone with left-sided hydronephrosis and pelvic caliectasis. ? RECOMMENDATION:? 1.Contineu IVF 2. S?p Uro procedure- Cysto with stent 3. F/u Urine output - P has a ashby 4. antibiotic management for a possible UTI. 5. In regard to hypercalcemia, the patient has history of hypercalcemia in the past and I doubt primary hyperparathyroidism as PT was low ? Increased ac due to dehydration vs Dehtdration causedby high CA He is 26 and malignancy is low in the diff Dx Immobilization causes PTH to be high We will continue to follow the patient with you closely. Thank you for allowing me to participate in medical management. ? ? ? Jaydon Lancaster MD ? Time Spent With Patient Time: Total time spent is greater than 50% in coordination of care (as documented) at patient's floor/unit and/or counseling patient: Progress Note: Quality Stroke Does the patient have a stroke diagnosis?: No
[2022-01-07] MEDS: cefTRIAXone sodium 1 GM in 0.9 % Sodium Chloride 50 ML IV (18:24)
[2022-01-07] MEDS: 0.9 % Sodium Chloride Flush 3 ML SYRINGE IVFLUSH (21:39)
[2022-01-07] MEDS: Mineral Oil/Petrolatum,White 106 GM Tube 1 APPL TOPICAL (21:52)
--- NOTE | 2022-01-07 23:45 | PC.NURSE ---
Pt was coughing and drooling, suctioned and position to high fowlers. Pt resting comforting, respiration is even and non labored.
[2022-01-08 03:16] VITALS: BP 106/64; PULSE 98; RESP 16; TEMP 36.6; O2SAT 100
[2022-01-08 03:24] LABS: Vitamin D 25-OH Total 28.1 ng/mL (>30)
[2022-01-08 07:19] VITALS: BP 115/68; PULSE 113; RESP 15; TEMP 36.4; O2SAT 100
[2022-01-08] MEDS: Lactated Ringers 1,000 ML 100 ML IVCONT (08:01)
[2022-01-08] MEDS: 0.9 % Sodium Chloride Flush 3 ML SYRINGE IVFLUSH ×3 (08:02→21:11)
[2022-01-08] MEDS: polyethylene glycoL 3350 17 GM POWD.PACK G-TUBE (08:02)
[2022-01-08] MEDS: Cholecalciferol (Vitamin D3) 25 MCG TABLET G-TUBE ×3 (08:02→21:10)
--- NOTE | 2022-01-08 08:04 | PM.UROPN ---
Subjective Subjective Date of Service: 01/08/22 Interval history: 26-year-old male with past medical history of cerebral palsy chronically bed-bound, completely dependent, microcephaly, nonverbal, history of quadriplegia, seizure disorder, with symptoms including nausea vomitting. CT imaging was done noting? left hydro due to obstructing ureteral stone, several bilateral nonobstructing kidney stones also noted on CT. s/p Left ureteral stent 01/08/22. Physical Exam Vital Signs: Vital Signs: Last Vital Signs Temp 97.5 F 01/08/22 07:19 Pulse 113 H 01/08/22 07:19 Resp 15 01/08/22 07:19 BP 115/68 01/08/22 07:19 Pulse Ox 100 01/08/22 07:19 O2 Del Method 01/08/22 07:19 O2 Flow Rate 2 01/07/22 12:10 BMI result Body Mass Index 17.7 Const: General: no acute distress Neck: Neck: Yes normal visual inspection Chest: Chest palpation & inspection: normal inspection of the chest Resp: Effort & Inspection: normal respiratory effort Cardio: Jugular venous distension: no JVD GI: Other: baclofen pump in place, peg tube Inspection: Yes normal to inspection Palpation (GI): Soft to palpation : Other: ashby in place draining pink tinged urine Penis: normal penis Skin: General skin exam: no rashes or lesions noted Extrem: Other: + contractures of lower extremities Psych: Other: nonverbal Urology Results Labs CBC & Chem 7: 01/05/22 18:24 01/08/22 07:37 Labs: Laboratory Results - last 24 hr 01/07/22 06:00 25-OH Vitamin D Total 28.1 Progress Note: A&P Assessment and plan (1) Obstructive uropathy: Status: Acute (2) Hydronephrosis with renal calculous obstruction: Status: Acute (3) SILVIO (acute kidney injury): Status: Acute Plan S/P left ureteral stent. Renal function improved- The patient has an appointment in 2 weeks with his Urologist in [place] Family wants to continue FU with their urologist D/C isma tomorrow, 01/09/22 Time Spent With Patient Time: Total time spent is greater than 50% in coordination of care (as documented) at patient's floor/unit and/or counseling patient: Progress Note: Quality Stroke Does the patient have a stroke diagnosis?: No
[2022-01-08] MEDS: Mineral Oil/Petrolatum,White 106 GM Tube 1 APPL TOPICAL ×2 (08:07→21:11)
[2022-01-08 08:47] LABS: Anion Gap 20 (12-20); Blood Urea Nitrogen 22 mg/dL (9-16); Calcium 9.5 mg/dL (8.4-10.2); Carbon Dioxide 20 mmol/L (22-29); Chloride 114 mmol/L (96-108); Estimated Glomerular Filt Rate 48; Glucose Random 71 mg/dL (60-115); Potassium 3.5 mmol/L (3.3-5.1); Sodium 150 mmol/L (135-145)
--- NOTE | 2022-01-08 10:52 | HO.POSTANES ---
Post Anesthesia Evaluation Post Anesthesia Evaluation Vital Signs: Vital Signs Temp Pulse Resp BP Pulse Ox O2 Del Method 01/08/22 07:19 97.5 F 113 H 15 115/68 100 Room Air 01/08/22 03:16 97.8 F 98 16 106/64 100 Room Air 01/07/22 23:23 97.4 F 119 H 18 117/64 98 Room Air Anesthesia: General Mental Status: Awake Pain Control: Satisfactory Nausea/Vomiting: None Hydration: Adequate Anesthesia-Related Issues: No Anes. Related Issues
[2022-01-08 10:59] VITALS: BP 125/84; PULSE 115; RESP 16; TEMP 36.5; O2SAT 100
--- NOTE | 2022-01-08 11:19 | HO.PM.IMPN ---
Subjective Subjective Date of Service: 01/08/22 Interval History: SILVIO, obstructive uropathy, bacteremia Review of Systems Patient seems similar to yesterday more comfortable Not in any distress, nonverbal, no fever Physical Exam Vital Signs: Vital Signs: Last Vital Signs Temp 97.7 F 01/08/22 10:59 Pulse 115 H 01/08/22 10:59 Resp 16 01/08/22 10:59 BP 125/84 01/08/22 10:59 Pulse Ox 100 01/08/22 10:59 O2 Del Method 01/08/22 10:59 O2 Flow Rate 2 01/07/22 12:10 BMI result Body Mass Index 17.7 Appearance: awake ,seems at baseline.? cvs: rrr, [id number] , no murmur res: mild diminshed at bases , erick or wheezing abd: no rebound or guarding ,nt, bs present. ext pulses present , no cyanosis. neuro: axo3 , nonfocal. Objective Data Active Medications Acetaminophen (Acetaminophen Oral Liquid 650 Mg/20.3 Ml Solution) 650 mg G-TUBE Q6H PRN PRN Reason: Pain, Mild (Pain Scale 1-3) Last Admin: 01/06/22 06:20 Dose: 650 mg Documented By: ROSHNI Albuterol Sulfate (Albuterol Sulfate 2.5 Mg/0.5 Ml Vial.Neb) 5 mg INHALE Q4H PRN PRN Reason: Wheezing Docusate Sodium (Docusate Sodium 100 Mg Capsule) 100 mg PO DAILY PRN PRN Reason: Constipation Ceftriaxone Sodium 1 gm/ (Sodium Chloride) 50 mls @ 100 mls/hr IV Q24H [facility] Last Infusion: 01/07/22 19:31 Dose: 0 mls/hr Documented By: LINNEA Lactated Ringer's (Lr) 1,000 mls @ 100 mls/hr IVCONT .Q10H [facility] Last Admin: 01/08/22 08:01 Dose: 100 mls/hr Documented By: FAINA Melatonin (Melatonin 3 Mg Tablet) 1.5 mg PO BEDTIME [facility] Last Admin: 01/07/22 21:39 Dose: Not Given Documented By: LINNEA Non-Admin Reason: NPO Morphine Sulfate (Morphine Sulfate 4 Mg/Ml Cartridge) 4 mg IVPUSH Q6H PRN; Protocol PRN Reason: Pain, Severe (Pain Scale 7-10) Multi-Ingred Cream/Lotion/Oil/Oint (Mineral Oil/Petrolatum,White 106 Gm Tube) 1 appl TOPICAL BID [facility]; Protocol Last Admin: 01/08/22 08:07 Dose: 1 appl Documented By: FAINA Non-Formulary Medication (Levocarnitine) 660 mg feeding tube BID [facility] Non-Formulary Medication (Baclofen) 80 mcg INTRATHECA DAILY [facility] Ondansetron HCl (Ondansetron Hcl 4 Mg/2 Ml Vial) 4 mg IVPUSH Q8H PRN PRN Reason: Nausea and Vomiting Last Admin: 01/06/22 06:23 Dose: 4 mg Documented By: ROSHNI Pharmacy Consult (Consult Rx Perform Med Rec) 1 each MISCELLANE ONCE PRN PRN Reason: Consult order Pharmacy Consult (Consult Rx Vancomycin Dosing) 1 each MISCELLANE DAILY PRN PRN Reason: Consult order Polyethylene Glycol (Polyethylene Glycol 3350 17 Gm Powd.Pack) 17 gm G-TUBE Q2D@0900 [facility] Last Admin: 01/08/22 08:02 Dose: 17 gm Documented By: FAINA Sodium Chloride (0.9 % Sodium Chloride Flush 3 Ml Syringe) 3 ml IVFLUSH QSHIFT [facility] Last Admin: 01/08/22 08:02 Dose: 3 ml Documented By: FAINA Vitamin D (Cholecalciferol (Vitamin D3) 25 Mcg Tablet) 25 mcg G-TUBE TID [facility] Last Admin: 01/08/22 08:02 Dose: 25 mcg Documented By: FAINA Labs CBC & Chem 7: 01/05/22 18:24 01/08/22 07:37 Labs: Laboratory Results - last 24 hr 01/07/22 01/08/22 06:00 07:37 Anion Gap 20 Estim Creat Clear Calc 35.0 Estimated GFR 48 Random Glucose 71 D Calcium 9.5 D 25-OH Vitamin D Total 28.1 Microbiology Microbiology Results: Microbiology 01/05/22 18:10 Blood Culture - Preliminary Blood - Venous No growth after 48 hours. 01/05/22 18:24 Blood Culture - Final Blood - Venous Coag negative Staphylococcus Assessment and Plan (1) Tachycardia: Status: Acute (2) Obstructive uropathy: Status: Acute (3) SILVIO (acute kidney injury): Status: Acute (4) Aspiration pneumonia: Status: Acute Plan 26-year-old male with past medical history of cerebral past see completely bedbound presents to the hospital with tachycardia, and cough found to have SILVIO and obstructing stone # SILVIO - likely secondary to post obstruction in the setting of obstructing ureter stone seen by urology s/p stent ?improving with IV fluid - urology consult-plan for urology intervention. - follow BMP # nausea vomiting: no new episode - likely secondary to above. - antiemetics - no evidence of aspiration on CT of the chest or chest x-ray ?may need to start feeding # hydronephrosis with obstructing ureter stone - IV antibiotic - follow culture urology foll[place] # tachycardia - chronic sinus tachycardia - UA pending but acute infection is unlikely, has no leukocytosis, no lactic acidosis - monitor heart rate #Aspiration pna? - no evidence of aspiration on CT or chest xray - pt will be on abx for kidney stone - montor - Has G-tibe in place we will continue antibiotics until blood culture comes 48 hr neg hold vanco since coagulase negative Staph may be contamination. DVT ppx: SCDs in anticipation of stent inpatient need:? Obstructive uropathy and SILVIO need IV hydration and urological workup as well at intervention.? Quality Stroke Does the patient have a stroke diagnosis?: No VTE Prior VTE?: No VTE Risk Level:: Medical - moderate - high VTE Device Contraindication: Treatment Not Indicated VTE Drug Contraindication: N/A - Med Ordered
--- NOTE | 2022-01-08 11:27 | PM.PNNEP ---
Subjective Subjective Date of Service: 01/08/22 Interval history: Events noted. All recent data reviewed. D/W Hospitalist Physical Exam Vital Signs: Vital Signs: Last Vital Signs Temp 97.7 F 01/08/22 10:59 Pulse 115 H 01/08/22 10:59 Resp 16 01/08/22 10:59 BP 125/84 01/08/22 10:59 Pulse Ox 100 01/08/22 10:59 O2 Del Method 01/08/22 10:59 O2 Flow Rate 2 01/07/22 12:10 BMI result Body Mass Index 17.7 Const: General: no acute distress Neck: Neck: Yes supple Resp: Auscultation: diminished lung sounds Cardio: Rate: regular rate GI: Palpation (GI): Soft to palpation Skin: General skin exam: no rashes or lesions noted Objective Data Labs CBC & Chem 7: 01/05/22 18:24 01/08/22 07:37 Labs: Laboratory Results - last 24 hr 01/07/22 01/08/22 06:00 07:37 Sodium 150 H Potassium 3.5 Chloride 114 H Carbon Dioxide 20 L Anion Gap 20 BUN 22 H D Creatinine 1.74 H Estim Creat Clear Calc 35.0 Estimated GFR 48 Random Glucose 71 D Calcium 9.5 D 25-OH Vitamin D Total 28.1 Microbiology Microbiology Results: Microbiology 01/05/22 18:10 Blood - Venous Blood Culture - Preliminary No growth after 48 hours. 01/05/22 18:24 Blood - Venous Blood Culture - Final Coag negative Staphylococcus Procedures Date of Service Date of Service: 01/08/22 Assessment & Plan Assessment and plan (1) SILVIO (acute kidney injury): Status: Acute Assessment and Plan: Acute kidney injury likely secondary to multifactorial reasons Baseline creatinine around 1.0. H/O of metabolic acidosis- on sodium bicarb. Left ureteric stone with left-sided hydronephrosis- S/P L Ureteral stent ?Renal function improving; Shall switch RInger lactate to 0.45 % NS Labs AM. Shall closely follow up Time Spent With Patient Time: Total time spent is greater than 50% in coordination of care (as documented) at patient's floor/unit and/or counseling patient: Progress Note: Quality Stroke Does the patient have a stroke diagnosis?: No
[2022-01-08 12:26] VITALS: BMI 21.7
[2022-01-08] MEDS: Sodium Chloride 0.45 % 1,000 ML 80 ML IVCONT (12:26)
--- NOTE | 2022-01-08 13:12 | MHC.CM.PN ---
spoke with pts mother and guardian drew [phone] who explins that pt goes to a day care [id number] to [address] 5 days a week he also has 52 hrs a week of [employer] when dcd he will be transported home by his family pts feedings are supplies by janna machado plan is home
[2022-01-08 15:02] LABS: PTHI 27 pg/mL (16-77)
--- NOTE | 2022-01-08 15:08 | MHC.CLN ---
NUTRITION DISCUSSED TUBE FEEDING WITH MOTHER ON PHONE. TUBE FEED FORMULA IS KETOVIE 3:1. AT HOME, PATIENT GETS 240 ML FORMULA AT 9 AM, NOON, AND 4 PM. GETS 4 CARTONS NOCTURNAL FEED AT 120 ML PER HOUR X ABOUT 9 HOURS. USES PUMP FOR ALL FEEDINGS. REPORTS THAT PATIENT VOMITS WITH BOLUS. FLUSH 240 [address] RECOMMENDS CONTINUE PATENT'S OWN TUBE FEEDING PROVIDED BY FAMILY. KETOVIE 3:1 AT 110 ML PER HOUR CONTINUOUS X 16 HOURS. FLUSH WITH FREE WATER 240 ML Q 6 HOURS. PROVIDES 1760 ML FORMULA, 1830 KCALS (38.9 KCALS/KG); 49 G PROTEIN (1.05 G/KG); FREE WATER FORMULA 1496 ML PLUS 960 JT=0145 ML (52.1 ML/KG). PROVIDES SIMILAR KCALS, PROTEIN AND FLUIDS HOME TUBE FEED REGIMEN. FOLLOW FOR TUE FEED TOLERANCE, LABS, RESIDUALS.
[2022-01-08 15:20] VITALS: BP 121/82; PULSE 122; RESP 19; TEMP 36.7; O2SAT 97
[2022-01-08 15:23] VITALS: BMI 21.7
[2022-01-08 17:08] LABS: Vancomycin Random 12.1 mcg/mL (15-20)
[2022-01-08] MEDS: cefTRIAXone sodium 1 GM in 0.9 % Sodium Chloride 50 ML IV (18:07)
[2022-01-08 19:22] VITALS: BP 111/62; PULSE 125; RESP 17; TEMP 37.1; O2SAT 98
[2022-01-08] MEDS: Melatonin 3 MG TABLET 1.5 MG PO (21:10)
--- NOTE | 2022-01-08 21:20 | PC.NURSE ---
at 2100 DUE TO RESIDUAL OVER 250 ML, FEEDING HOLD FOR 2 HRS PER MD ORDER. WILL RECHECK IN 2 HRS.
[2022-01-09] VITALS (7 sets, daily range): BP systolic 121–149; BP diastolic 64–87; PULSE 70–136; RESP 16–20; TEMP 36.1–36.9; O2SAT 96–99
--- NOTE | 2022-01-09 00:05 | PC.NURSE ---
Pt vomited a large amount of feed mixed with mucus. Feeding paused, pt suction and put in high eng, respiration is even and non labored, resting comfortably.
--- NOTE | 2022-01-09 00:05 | PC.NURSE ---
Oozing blood at the urethral meatus; cleaned and dried. ashby draining a light yellow blood tinged urine. No clot.
[2022-01-09] MEDS: Sodium Chloride 0.45 % 1,000 ML 80 ML IVCONT (00:42)
--- NOTE | 2022-01-09 01:21 | PC.NURSE ---
Tube feed on hold d/t high residuals ; at 8 pm 260 ml and at 2300 200 ml , pt vomited large amount after [address] Patricio notified tube feed on hold for now
--- NOTE | 2022-01-09 04:06 | PC.NURSE ---
[place] now draining bloody urine, no clots noted.
[2022-01-09] MEDS: Acetaminophen Oral Liquid 650 MG/20.3 ML SOLUTION G-TUBE ×2 (05:15→16:07)
[2022-01-09 06:00] LABS: Anion Gap 23 (12-20); Blood Urea Nitrogen 16 mg/dL (9-16); Carbon Dioxide 19 mmol/L (22-29); Chloride 108 mmol/L (96-108); Creatinine Clr Calc Pharmacy 41.7; Estimated Glomerular Filt Rate 48; Glucose Random 77 mg/dL (60-115); Potassium 3.3 mmol/L (3.3-5.1); Sodium 147 mmol/L (135-145)
[2022-01-09] MEDS: Morphine Sulfate 4 MG/ML CARTRIDGE IVPUSH (06:07)
--- NOTE | 2022-01-09 07:18 | PM.UROPN ---
Subjective Subjective Date of Service: 01/09/22 Interval history: 26-year-old male with past medical history of cerebral palsy chronically bed-bound, completely dependent, microcephaly, nonverbal, history of quadriplegia, seizure disorder, with symptoms including nausea vomitting. CT imaging was done noting? left hydro due to obstructing ureteral stone, several bilateral nonobstructing kidney stones also noted on CT. s/p Left ureteral stent 01/08/22. Post operative course as expected. Renal fxn improved. D/C ashby today. Stable from standpoint Physical Exam Vital Signs: Vital Signs: Last Vital Signs Temp 97.9 F 01/09/22 03:55 Pulse 123 H 01/09/22 03:55 Resp 20 01/09/22 03:55 BP 134/85 01/09/22 03:55 Pulse Ox 99 01/09/22 03:55 O2 Del Method 01/09/22 03:55 O2 Flow Rate 2 01/07/22 12:10 BMI result Body Mass Index 21.7 Const: General: no acute distress Neck: Neck: Yes normal visual inspection Chest: Chest palpation & inspection: normal inspection of the chest Resp: Effort & Inspection: normal respiratory effort Cardio: Jugular venous distension: no JVD GI: Other: baclofen pump in place, peg tube Inspection: Yes normal to inspection Palpation (GI): Soft to palpation : Penis: normal penis Skin: General skin exam: no rashes or lesions noted Extrem: Other: + contractures of lower extremities Psych: Other: nonverbal Urology Results Labs CBC & Chem 7: 01/05/22 18:24 01/09/22 05:26 Labs: Laboratory Results - last 24 hr 01/07/22 01/08/22 01/08/22 06:00 07:37 16:27 Sodium 150 H Potassium 3.5 Chloride 114 H Carbon Dioxide 20 L Anion Gap 20 BUN 22 H D Creatinine 1.74 H Estim Creat Clear Calc 35.0 Estimated GFR 48 Random Glucose 71 D Calcium 9.5 D PTH Intact 27 Calcium (PTH Intact) 10.0 Random Vancomycin 12.1 L 01/09/22 05:26 Sodium 147 H Potassium 3.3 Chloride 108 Carbon Dioxide 19 L Anion Gap 23 H BUN 16 Creatinine 1.72 H Estim Creat Clear Calc 41.7 Estimated GFR 48 Random Glucose 77 Calcium 10.0 PTH Intact Calcium (PTH Intact) Random Vancomycin Progress Note: A&P Assessment and plan (1) Obstructive uropathy: Status: Acute (2) Hydronephrosis with renal calculous obstruction: Status: Acute (3) SILVIO (acute kidney injury): Status: Acute Plan Left hydro due to obstructing ureteral stone, several bilateral nonobstructing kidney stones also noted on CT. s/p Left ureteral stent 01/08/22. Post operative course as expected. Renal fxn improved. D/C ashby today. Stable from standpoint. The patient has an appointment in 2 weeks with his Urologist in [place] Family wants to continue FU with their urologist Time Spent With Patient Time: Total time spent is greater than 50% in coordination of care (as documented) at patient's floor/unit and/or counseling patient: Progress Note: Quality Stroke Does the patient have a stroke diagnosis?: No
[2022-01-09] MEDS: Dextrose 5 % 1,000 ML 100 ML IVCONT ×2 (08:43→18:39)
[2022-01-09] MEDS: Mineral Oil/Petrolatum,White 106 GM Tube 1 APPL TOPICAL ×2 (08:45→22:54)
[2022-01-09] MEDS: Cholecalciferol (Vitamin D3) 25 MCG TABLET G-TUBE ×3 (09:04→19:58)
--- NOTE | 2022-01-09 09:25 | HO.PM.IMPN ---
Subjective Subjective Date of Service: 01/09/22 Interval History: Follow-up on obstructive uropathy, hypernatremia Interval history: Nonverbal at baseline, had vomiting last night so that the tube feeding has to be stopped. Sodium level remained had of 147 a Review of Systems Review of Systems: Yes Unobtainable due to mental status Physical Exam Vital Signs: Vital Signs: Last Vital Signs Temp 98.5 F 01/09/22 07:40 Pulse 114 H 01/09/22 07:40 Resp 16 01/09/22 07:40 BP 135/79 01/09/22 07:40 Pulse Ox 98 01/09/22 07:40 O2 Del Method 01/09/22 07:40 O2 Flow Rate 2 01/07/22 12:10 BMI result Body Mass Index 21.7 Const: Other: General: Nonverbal Resp: CTA bilateral CVS: S1,S2,RRR GI: +BS, NT, no distention Skin: No rash Neuro: Unable to assess Psych: Flat Objective Data Active Medications Acetaminophen (Acetaminophen Oral Liquid 650 Mg/20.3 Ml Solution) 650 mg G-TUBE Q6H PRN PRN Reason: Pain, Mild (Pain Scale 1-3) Last Admin: 01/09/22 05:15 Dose: 650 mg Documented By: LINNEA Albuterol Sulfate (Albuterol Sulfate 2.5 Mg/0.5 Ml Vial.Neb) 5 mg INHALE Q4H PRN PRN Reason: Wheezing Docusate Sodium (Docusate Sodium 100 Mg Capsule) 100 mg PO DAILY PRN PRN Reason: Constipation Ceftriaxone Sodium 1 gm/ (Sodium Chloride) 50 mls @ 100 mls/hr IV Q24H [facility] Last Infusion: 01/08/22 18:40 Dose: 0 mls/hr Documented By: LINNEA Dextrose (D5w) 1,000 mls @ 100 mls/hr IVCONT .Q10H [facility] Last Admin: 01/09/22 08:43 Dose: 100 mls/hr Documented By: CINDY Melatonin (Melatonin 3 Mg Tablet) 1.5 mg PO BEDTIME [facility] Last Admin: 01/08/22 21:10 Dose: 1.5 mg Documented By: LINNEA Morphine Sulfate (Morphine Sulfate 4 Mg/Ml Cartridge) 4 mg IVPUSH Q6H PRN; Protocol PRN Reason: Pain, Severe (Pain Scale 7-10) Last Admin: 01/09/22 06:07 Dose: 4 mg Documented By: LINNEA Multi-Ingred Cream/Lotion/Oil/Oint (Mineral Oil/Petrolatum,White 106 Gm Tube) 1 appl TOPICAL BID [facility]; Protocol Last Admin: 01/09/22 08:45 Dose: 1 appl Documented By: CINDY Non-Formulary Medication (Levocarnitine) 660 mg feeding tube BID [facility] Non-Formulary Medication (Baclofen) 80 mcg INTRATHECA DAILY [facility] Ondansetron HCl (Ondansetron Hcl 4 Mg/2 Ml Vial) 4 mg IVPUSH Q8H PRN PRN Reason: Nausea and Vomiting Last Admin: 01/06/22 06:23 Dose: 4 mg Documented By: ROSHNI Pharmacy Consult (Consult Rx Perform Med Rec) 1 each MISCELLANE ONCE PRN PRN Reason: Consult order Pharmacy Consult (Consult Rx Vancomycin Dosing) 1 each MISCELLANE DAILY PRN PRN Reason: Consult order Polyethylene Glycol (Polyethylene Glycol 3350 17 Gm Powd.Pack) 17 gm G-TUBE Q2D@0900 [facility] Last Admin: 01/08/22 08:02 Dose: 17 gm Documented By: FAINA Sodium Chloride (0.9 % Sodium Chloride Flush 3 Ml Syringe) 3 ml IVFLUSH QSHIFT [facility] Last Admin: 01/09/22 08:43 Dose: Not Given Documented By: CINDY Non-Admin Reason: IV Running Vitamin D (Cholecalciferol (Vitamin D3) 25 Mcg Tablet) 25 mcg G-TUBE TID [facility] Last Admin: 01/09/22 09:04 Dose: 25 mcg Documented By: CINDY Labs CBC & Chem 7: 01/05/22 18:24 01/09/22 05:26 Labs: Laboratory Results - last 24 hr 01/07/22 01/08/22 01/09/22 06:00 16:27 05:26 Anion Gap 23 H Estim Creat Clear Calc 41.7 Estimated GFR 48 Random Glucose 77 Calcium 10.0 PTH Intact 27 Calcium (PTH Intact) 10.0 Random Vancomycin 12.1 L Assessment and Plan (1) Obstructive uropathy: Status: Acute (2) Tachycardia: Status: Acute (3) Hydronephrosis with renal calculous obstruction: Status: Acute (4) SILVIO (acute kidney injury): Status: Acute Plan 26-year-old male with past medical history of cerebral past see completely bedbound presents to the hospital with tachycardia, and cough found to have SILVIO and obstructing stone # SILVIO - likely secondary to post obstruction in the setting of obstructing ureter stone seen by urology s/p stent ?improving with IV fluid asbhy removed today - follow BMP # hydronephrosis with obstructing ureter stone -management as above # nausea vomiting -no clinical evidence of obstructio -xray of abdomen -restart feeding at slower rate Hypernatremia--needs free water, add D5 and water to be increased via tube fee # Tachycardia - chronic sinus tachycardia - UA 01/07 no UTI #Aspiration - no evidence of aspiration on CT or chest xray #Coag neg staph bacteremia--contamination #Feeding --tube feed to be restarted at slower rate DVT ppx: SCDs in anticipation of stent inpatient need:? SILVIO, hypernatremia, needing IVF Quality Stroke Does the patient have a stroke diagnosis?: No VTE Prior VTE?: No VTE Risk Level:: Medical - moderate - high VTE Device Contraindication: Treatment Not Indicated VTE Drug Contraindication: N/A - Med Ordered
--- NOTE | 2022-01-09 10:07 | PM.PNNEP ---
Subjective Subjective Date of Service: 01/09/22 Interval history: Events noted. All recent data reviewed Physical Exam Vital Signs: Vital Signs: Last Vital Signs Temp 98.5 F 01/09/22 07:40 Pulse 114 H 01/09/22 07:40 Resp 16 01/09/22 07:40 BP 135/79 01/09/22 07:40 Pulse Ox 98 01/09/22 07:40 O2 Del Method 01/09/22 07:40 O2 Flow Rate 2 01/07/22 12:10 BMI result Body Mass Index 21.7 Const: General: no acute distress Neck: Neck: Yes supple Resp: Auscultation: diminished lung sounds Cardio: Rate: regular rate GI: Palpation (GI): Soft to palpation Skin: General skin exam: no rashes or lesions noted Objective Data Labs CBC & Chem 7: 01/05/22 18:24 01/09/22 05:26 Labs: Laboratory Results - last 24 hr 01/07/22 01/08/22 01/09/22 06:00 16:27 05:26 Sodium 147 H Potassium 3.3 Chloride 108 Carbon Dioxide 19 L Anion Gap 23 H BUN 16 Creatinine 1.72 H Estim Creat Clear Calc 41.7 Estimated GFR 48 Random Glucose 77 Calcium 10.0 PTH Intact 27 Calcium (PTH Intact) 10.0 Random Vancomycin 12.1 L Microbiology Microbiology Results: Microbiology 01/05/22 18:10 Blood - Venous Blood Culture - Preliminary No growth after 48 hours. 01/05/22 18:24 Blood - Venous Blood Culture - Final Coag negative Staphylococcus Procedures Date of Service Date of Service: 01/09/22 Assessment & Plan Assessment and plan (1) SILVIO (acute kidney injury): Status: Acute Assessment and Plan: Acute kidney injury likely secondary to multifactorial reasons Baseline creatinine around 1.0. H/O? of metabolic acidosis-? on sodium bicarb. Left ureteric stone with left-sided hydronephrosis- S/P L Ureteral stent ?Renal function improved/stable; Switched to D5W @ 100/hr Concur with rest of current supportive management Labs AM. Shall closely follow up Time Spent With Patient Time: Total time spent is greater than 50% in coordination of care (as documented) at patient's floor/unit and/or counseling patient: Progress Note: Quality Stroke Does the patient have a stroke diagnosis?: No
--- NOTE | 2022-01-09 16:35 | PC.NURSE ---
Patient did not tolerate GT feeding overnight. Feeding was off from midnight to 0900, MD aware. At 0900 residual checked and was 10, formula restarted at 40 ml/hr rate. At 1300 residual was 10,rate increased to 50, at 1600 residual was 20, cont feeding at the same rate.Also at 0900 FC was removed, patient was incontinent in lg amt of urine, bladder scanned at 1600 for 218 ml.
[2022-01-09] MEDS: cefTRIAXone sodium 1 GM in 0.9 % Sodium Chloride 50 ML IV (19:53)
[2022-01-09] MEDS: Melatonin 3 MG TABLET 1.5 MG PO (19:58)
[2022-01-09] MEDS: 0.9 % Sodium Chloride Flush 3 ML SYRINGE IVFLUSH (19:58)
[2022-01-10 03:41] VITALS: BP 121/82; PULSE 115; RESP 18; TEMP 36.4; O2SAT 96
[2022-01-10] MEDS: Dextrose 5 % 1,000 ML 100 ML IVCONT (04:52)
[2022-01-10 07:23] VITALS: BP 118/78; PULSE 114; RESP 18; TEMP 36.9; O2SAT 97
[2022-01-10] MEDS: Mineral Oil/Petrolatum,White 106 GM Tube 1 APPL TOPICAL ×2 (08:28→21:40)
[2022-01-10] MEDS: polyethylene glycoL 3350 17 GM POWD.PACK G-TUBE (08:28)
[2022-01-10] MEDS: Cholecalciferol (Vitamin D3) 25 MCG TABLET G-TUBE ×3 (08:28→21:39)
--- NOTE | 2022-01-10 08:49 | MHC.CM.PN ---
CM CONTACTED PT'S MOTHER AT 8:38AM (NUMBER ON FILE) TO VERIFY PCP, PCP IS KHADRA Wells/GORDO.
[2022-01-10 09:36] LABS: Anion Gap 14 (12-20); Blood Urea Nitrogen 10 mg/dL (9-16); Calcium 10.2 mg/dL (8.4-10.2); Carbon Dioxide 26 mmol/L (22-29); Chloride 106 mmol/L (96-108); Creatinine Clr Calc Pharmacy 49.5; Estimated Glomerular Filt Rate 59; Glucose Random 118 mg/dL (60-115); Potassium 2.5 mmol/L (3.3-5.1); Sodium 143 mmol/L (135-145)
--- NOTE | 2022-01-10 10:34 | PM.PNNEP ---
Subjective Subjective Date of Service: 01/10/22 Interval history: Events noted. All recent data reviewed Physical Exam Vital Signs: Vital Signs: Last Vital Signs Temp 98.5 F 01/10/22 07:23 Pulse 114 H 01/10/22 07:23 Resp 18 01/10/22 07:23 BP 118/78 01/10/22 07:23 Pulse Ox 97 01/10/22 07:23 O2 Del Method 01/10/22 07:23 O2 Flow Rate 2 01/07/22 12:10 BMI result Body Mass Index 21.7 Const: General: no acute distress Neck: Neck: Yes supple Resp: Auscultation: diminished lung sounds Cardio: Rate: regular rate GI: Palpation (GI): Soft to palpation Skin: General skin exam: no rashes or lesions noted Objective Data Labs CBC & Chem 7: 01/05/22 18:24 01/10/22 08:54 Labs: Laboratory Results - last 24 hr 01/10/22 08:54 Sodium 143 Potassium 2.5 L* D Chloride 106 Carbon Dioxide 26 Anion Gap 14 BUN 10 Creatinine 1.45 H Estim Creat Clear Calc 49.5 Estimated GFR 59 Random Glucose 118 H D Calcium 10.2 Microbiology Microbiology Results: Microbiology 01/05/22 18:10 Blood - Venous Blood Culture - Preliminary No growth after 48 hours. 01/05/22 18:24 Blood - Venous Blood Culture - Final Coag negative Staphylococcus Procedures Date of Service Date of Service: 01/10/22 Assessment & Plan Assessment and plan (1) SILVIO (acute kidney injury): Status: Acute Assessment and Plan: Acute kidney injury likely secondary to multifactorial reasons Baseline creatinine around 1.0. H/O? of metabolic acidosis-? on sodium bicarb. Left ureteric stone with left-sided hydronephrosis- S/P L Ureteral stent ?Renal function improving; Na improved with D5W @ 100/hr Needs K to be kept over 4 Concur with rest of current supportive management Labs AM. Shall closely follow up Time Spent With Patient Time: Total time spent is greater than 50% in coordination of care (as documented) at patient's floor/unit and/or counseling patient: Progress Note: Quality Stroke Does the patient have a stroke diagnosis?: No
[2022-01-10 10:56] VITALS: BP 115/82; PULSE 112; RESP 18; TEMP 37.2; O2SAT 97
--- NOTE | 2022-01-10 10:57 | P.PNIM_ITS ---
Subjective Subjective Date of Service: 01/10/22 Interval History: Follow-up on obstructive uropathy, hypernatremia Interval history: Nonverbal at baseline, no report of vomiting overnight. Sodium is corrected however potassium is 2.5 this morning and is been corrected. Review of Systems Unable to obtain Physical Exam Vital Signs: Vital Signs: Last Vital Signs Temp 98.5 F 01/10/22 07:23 Pulse 114 H 01/10/22 07:23 Resp 18 01/10/22 07:23 BP 118/78 01/10/22 07:23 Pulse Ox 97 01/10/22 07:23 O2 Del Method 01/10/22 07:23 O2 Flow Rate 2 01/07/22 12:10 BMI result Body Mass Index 21.7 Const: Other: General: Nonverbal Resp: CTA bilateral CVS: S1,S2,RRR GI: +BS, NT, no distention Skin: No rash Neuro: Unable to assess Psych: Flat Objective Data Active Medications Acetaminophen (Acetaminophen Oral Liquid 650 Mg/20.3 Ml Solution) 650 mg G-TUBE Q6H PRN PRN Reason: Pain, Mild (Pain Scale 1-3) Last Admin: 01/09/22 16:07 Dose: 650 mg Documented By: CINDY Albuterol Sulfate (Albuterol Sulfate 2.5 Mg/0.5 Ml Vial.Neb) 5 mg INHALE Q4H PRN PRN Reason: Wheezing Docusate Sodium (Docusate Sodium 100 Mg Capsule) 100 mg PO DAILY PRN PRN Reason: Constipation Ceftriaxone Sodium 1 gm/ (Sodium Chloride) 50 mls @ 100 mls/hr IV Q24H [facility] Last Infusion: 01/09/22 22:02 Dose: 0 mls/hr Documented By: ASHLEY Dextrose (D5w) 1,000 mls @ 100 mls/hr IVCONT .Q10H [facility] Last Admin: 01/10/22 04:52 Dose: 100 mls/hr Documented By: ASHLEY Potassium Chloride (Potassium Chloride/H20) 20 meq in 100 mls @ 100 mls/hr IV Q1H [facility] Stop: 01/10/22 12:59 Melatonin (Melatonin 3 Mg Tablet) 1.5 mg PO BEDTIME [facility] Last Admin: 01/09/22 19:58 Dose: 1.5 mg Documented By: ASHLEY Morphine Sulfate (Morphine Sulfate 4 Mg/Ml Cartridge) 4 mg IVPUSH Q6H PRN; Pro tocol PRN Reason: Pain, Severe (Pain Scale 7-10) Last Admin: 01/09/22 06:07 Dose: 4 mg Documented By: SOHAB Multi-Ingred Cream/Lotion/Oil/Oint (Mineral Oil/Petrolatum,White 106 Gm Tube) 1 appl TOPICAL BID [facility]; Protocol Last Admin: 01/10/22 08:28 Dose: 1 appl Documented By: AUSTIN Non-Formulary Medication (Levocarnitine) 660 mg feeding tube BID [facility] Non-Formulary Medication (Baclofen) 80 mcg INTRATHECA DAILY [facility] Ondansetron HCl (Ondansetron Hcl 4 Mg/2 Ml Vial) 4 mg IVPUSH Q8H PRN PRN Reason: Nausea and Vomiting Last Admin: 01/06/22 06:23 Dose: 4 mg Documented By: ROSHNI Pharmacy Consult (Consult Rx Perform Med Rec) 1 each MISCELLANE ONCE PRN PRN Reason: Consult order Pharmacy Consult (Consult Rx Vancomycin Dosing) 1 each MISCELLANE DAILY PRN PRN Reason: Consult order Polyethylene Glycol (Polyethylene Glycol 3350 17 Gm Powd.Pack) 17 gm G-TUBE Q2D@0900 [facility] Last Admin: 01/10/22 08:28 Dose: 17 gm Documented By: AUSTIN Sodium Chloride (0.9 % Sodium Chloride Flush 3 Ml Syringe) 3 ml IVFLUSH QSHIFT [facility] Last Admin: 01/10/22 07:43 Dose: Not Given Documented By: AUSTIN Non-Admin Reason: IV Running Vitamin D (Cholecalciferol (Vitamin D3) 25 Mcg Tablet) 25 mcg G-TUBE TID [facility] Last Admin: 01/10/22 08:28 Dose: 25 mcg Documented By: AUSTIN Labs CBC & Chem 7: 01/05/22 18:24 01/10/22 08:54 Labs: Laboratory Results - last 24 hr 01/10/22 08:54 Anion Gap 14 Estim Creat Clear Calc 49.5 Estimated GFR 59 Random Glucose 118 H D Calcium 10.2 Assessment and Plan (1) Obstructive uropathy: Status: Acute (2) Tachycardia: Status: Acute (3) Hydronephrosis with renal calculous obstruction: Status: Acute (4) SILVIO (acute kidney injury): Status: Acute Plan 26-year-old male with past medical history of cerebral past see completely bedbound presents to the hospital with tachycardia, and cough found to have SILVIO and obstructing stone # SILVIO--improving - likely secondary to post obstruction in the setting of obstructing ureter stone seen by urology s/p stent ?improving with IV fluid ashby removed today - follow BMP # hydronephrosis with obstructing ureter stone -management as above # nausea vomiting -no clinical evidence of obstrucntio -xray of abdomen -restart feeding at slower rate Hypernatremia--needs free water, add D5 and water to be increased via tube fee # Tachycardia - chronic sinus tachycardia #Aspiration - no evidence of aspiration on CT or chest xray #Coag neg staph bacteremia--contamination #Feeding --tube feed to be restarted at slower rate #Hypokalemia--replace with IV, repeat level later today, check mag DVT ppx: SCDs in anticipation of stent inpatient need:? SILVIO, hypernatremia, HyPOkalemia needing IV replacement Quality Stroke Does the patient have a stroke diagnosis?: No VTE Prior VTE?: No VTE Risk Level:: Medical - moderate - high VTE Device Contraindication: Treatment Not Indicated VTE Drug Contraindication: N/A - Med Ordered
[2022-01-10] MEDS: Potassium Chloride/H20 20 MEQ/100 ML PIGGYBACK 100 MEQ IV ×2 (11:29→12:44)
[2022-01-10 11:38] LABS: Magnesium 1.3 mg/dL (1.6-2.6)
--- NOTE | 2022-01-10 13:00 | MHC.CLN ---
F/U ON 01/09 PATIENT WITH HIGH RESIDUALS AND VOMITING. TUBE FEEDING HELD PER PROTOCOL. CURRENTLY NO VOMITING AND LOW RESIDUALS WITH TUBE FEEDING RUNNING AT 50 ML PER HOUR. NURSING TO CONTACT MD FOR TUBE FEED ADVANCEMENT. RD RECOMMENDS CONTINUE PATENT'S OWN TUBE FEEDING PROVIDED BY FAMILY. ADVANCE TO MAX GOAL RATE TOLERATED. MAX GOAL RATE KETOVIE 3:1 AT 110 ML PER HOUR CONTINUOUS X 16 HOURS. FLUSH WITH FREE WATER 240 ML Q 6 HOURS. PROVIDES 1760 ML FORMULA, 1830 KCALS (38.9 KCALS/KG); 49 G PROTEIN (1.05 G/KG); FREE WATER FORMULA 1496 ML PLUS 960 PK=9382 ML (52.1 ML/KG). PROVIDES SIMILAR KCALS, PROTEIN AND FLUIDS HOME TUBE FEED REGIMEN. FOLLOW FOR TUBE FEED TOLERANCE, LABS, RESIDUALS.
[2022-01-10] MEDS: KCl 20 mEq in 5 % Dextrose 20 MEQ/1,000 ML IV.SOLN 100 MEQ IVCONT ×2 (13:45→21:40)
[2022-01-10] MEDS: Magnesium Sulfate/H2O 2 GM/50 ML PIGGYBACK IV ×2 (14:24→16:08)
[2022-01-10 15:40] VITALS: BP 129/68; PULSE 98; RESP 18; TEMP 37.4; O2SAT 98
--- NOTE | 2022-01-10 17:43 | PC.NURSE ---
Tube feed is running continuous at 50/hr, patient is tolerating, no vomiting, residual at 12:00- 5ml, residual at 16:00-10ml. Patient repositioned and suctioned and sitting in high fowlers.
[2022-01-10] MEDS: cefTRIAXone sodium 1 GM in 0.9 % Sodium Chloride 50 ML IV (18:21)
[2022-01-10 20:00] VITALS: BP 134/72; PULSE 98; RESP 20; TEMP 37; O2SAT 99
[2022-01-10] MEDS: Melatonin 3 MG TABLET 1.5 MG PO (21:39)
[2022-01-10 23:12] LABS: Magnesium 2.6 mg/dL (1.6-2.6); Potassium 3.4 mmol/L (3.3-5.1)
[2022-01-11] VITALS (7 sets, daily range): BP systolic 117–149; BP diastolic 70–92; PULSE 100–120; RESP 16–20; TEMP 36.6–36.8; O2SAT 96–99
[2022-01-11] MEDS: KCl 20 mEq in 5 % Dextrose 20 MEQ/1,000 ML IV.SOLN 100 MEQ IVCONT ×2 (04:46→14:46)
[2022-01-11 07:49] LABS: Anion Gap 14 (12-20); Blood Urea Nitrogen 7 mg/dL (9-16); Calcium 10.6 mg/dL (8.4-10.2); Carbon Dioxide 27 mmol/L (22-29); Chloride 107 mmol/L (96-108); Creatinine Clr Calc Pharmacy 51.7; Estimated Glomerular Filt Rate > 60; Glucose Random 124 mg/dL (60-115); Potassium 3.4 mmol/L (3.3-5.1); Sodium 145 mmol/L (135-145)
--- NOTE | 2022-01-11 08:43 | P.PNIM_ITS ---
Subjective Subjective Date of Service: 01/11/22 Interval History: Follow-up on obstructive uropathy, hypernatremia Interval history: Nonverbal at baseline, no new issues overnight, K and Mag corrected Review of Systems Unable to obtain Physical Exam Vital Signs: Vital Signs: Last Vital Signs Temp 97.9 F 01/11/22 08:00 Pulse 113 H 01/11/22 08:00 Resp 16 01/11/22 08:00 BP 126/70 01/11/22 08:00 Pulse Ox 99 01/11/22 08:00 O2 Del Method 01/11/22 08:00 O2 Flow Rate 2 01/07/22 12:10 BMI result Body Mass Index 21.7 Const: Other: General: Nonverbal Resp: CTA bilateral CVS: S1,S2,RRR GI: +BS, NT, no distention Skin: No rash Neuro: Unable to assess Psych: Flat Objective Data Active Medications Acetaminophen (Acetaminophen Oral Liquid 650 Mg/20.3 Ml Solution) 650 mg G-TUBE Q6H PRN PRN Reason: Pain, Mild (Pain Scale 1-3) Last Admin: 01/09/22 16:07 Dose: 650 mg Documented By: CINDY Albuterol Sulfate (Albuterol Sulfate 2.5 Mg/0.5 Ml Vial.Neb) 5 mg INHALE Q4H PRN PRN Reason: Wheezing Docusate Sodium (Docusate Sodium 100 Mg Capsule) 100 mg PO DAILY PRN PRN Reason: Constipation Ceftriaxone Sodium 1 gm/ (Sodium Chloride) 50 mls @ 100 mls/hr IV Q24H [facility] Last Infusion: 01/10/22 23:11 Dose: 0 mls/hr Documented By: ASHLEY Potassium Chloride/Dextrose (Kcl 20 Meq In 5 % Dextrose) 20 meq in 1,000 mls @ 100 mls/hr IVCONT .Q10H [facility] Last Admin: 01/11/22 04:46 Dose: 100 mls/hr Documented By: ASHLEY Melatonin (Melatonin 3 Mg Tablet) 1.5 mg PO BEDTIME [facility] Last Admin: 01/10/22 21:39 Dose: 1.5 mg Documented By: ASHLEY Multi-Ingred Cream/Lotion/Oil/Oint (Mineral Oil/Petrolatum,White 106 Gm Tube) 1 appl TOPICAL BID [facility]; Protocol Last Admin: 01/10/22 21:40 Dose: 1 appl Documented By: ASHLEY Non-Formulary Medication (Levocarnitine) 660 mg feeding tube BID [facility] Non-Formulary Medication (Baclofen) 80 mcg INTRATHECA DAILY [facility] Ondansetron HCl (Ondansetron Hcl 4 Mg/2 Ml Vial) 4 mg IVPUSH Q8H PRN PRN Reason: Nausea and Vomiting Last Admin: 01/06/22 06:23 Dose: 4 mg Documented By: ROSHNI Pharmacy Consult (Consult Rx Perform Med Rec) 1 each MISCELLANE ONCE PRN PRN Reason: Consult order Pharmacy Consult (Consult Rx Vancomycin Dosing) 1 each MISCELLANE DAILY PRN PRN Reason: Consult order Polyethylene Glycol (Polyethylene Glycol 3350 17 Gm Powd.Pack) 17 gm G-TUBE Q2D@0900 [facility] Last Admin: 01/10/22 08:28 Dose: 17 gm Documented By: AUSTIN Sodium Chloride (0.9 % Sodium Chloride Flush 3 Ml Syringe) 3 ml IVFLUSH QSHIFT [facility] Last Admin: 01/10/22 23:12 Dose: Not Given Documented By: ASHLEY Non-Admin Reason: IV Running Vitamin D (Cholecalciferol (Vitamin D3) 25 Mcg Tablet) 25 mcg G-TUBE TID [facility] Last Admin: 01/10/22 21:39 Dose: 25 mcg Documented By: ASHLEY Labs CBC & Chem 7: 01/05/22 18:24 01/11/22 06:16 Labs: Laboratory Results - last 24 hr 01/10/22 01/10/22 01/11/22 08:54 22:47 06:16 Anion Gap 14 14 Estim Creat Clear Calc 49.5 51.7 Estimated GFR 59 > 60 Random Glucose 118 H D 124 H Calcium 10.2 10.6 H Magnesium 1.3 L* 2.6 Microbiology Microbiology Results: Microbiology 01/05/22 18:10 Blood Culture - Final Blood - Venous No growth after 5 days. Assessment and Plan (1) Obstructive uropathy: Status: Acute (2) Tachycardia: Status: Acute (3) Hydronephrosis with renal calculous obstruction: Status: Acute (4) SILVIO (acute kidney injury): Status: Acute Plan 26-year-old male with past medical history of cerebral past see completely bedbound presents to the hospital with tachycardia, and cough found to have SILVIO and obstructing stone # SILVIO--improving - likely secondary to post obstruction in the setting of obstructing ureter stone seen by urology s/p stent ?improving with IV fluid ashby removed - follow BMP # hydronephrosis with obstructing ureter stone -management as above # nausea vomiting -no clinical evidence of obstrucntion -xray of abdomen if perists -restart feeding at slower rate #Hypernatremia--d/t dehydration, resolved. # Tachycardia - chronic sinus tachycardia #Aspiration - no evidence of aspiration on CT or chest xray #Coag neg staph bacteremia--contamination #Feeding --continue tube feed #Hypokalemia--replace with IV, repeat level later today, check mag DVT ppx: SCDs in anticipation of stent inpatient need:? SILVIO, hypernatremia, HyPOkalemia needing IV replacement Quality Stroke Does the patient have a stroke diagnosis?: No VTE Prior VTE?: No VTE Risk Level:: Medical - moderate - high VTE Device Contraindication: Treatment Not Indicated VTE Drug Contraindication: N/A - Med Ordered
[2022-01-11] MEDS: Cholecalciferol (Vitamin D3) 25 MCG TABLET G-TUBE ×3 (10:34→20:02)
[2022-01-11] MEDS: Mineral Oil/Petrolatum,White 106 GM Tube 1 APPL TOPICAL ×2 (10:35→20:05)
[2022-01-11] MEDS: 0.9 % Sodium Chloride Flush 3 ML SYRINGE IVFLUSH ×2 (10:35→23:07)
--- NOTE | 2022-01-11 10:39 | P.PNNP_ITS ---
Subjective Subjective Date of Service: 01/11/22 Interval history: Events noted. All recent data reviewed; D/W Hospitalist Physical Exam 2 Vital Signs: Vital Signs: Last Vital Signs Temp 97.9 F 01/11/22 08:00 Pulse 113 H 01/11/22 08:00 Resp 16 01/11/22 08:00 BP 126/70 01/11/22 08:00 Pulse Ox 99 01/11/22 08:00 O2 Del Method 01/11/22 08:00 O2 Flow Rate 2 01/07/22 12:10 BMI result Body Mass Index 21.7 Const: General: no acute distress Neck: Neck: Yes supple Resp: Auscultation: diminished lung sounds Cardio: Rate: regular rate GI: Palpation (GI): Soft to palpation Skin: General skin exam: no rashes or lesions noted Objective Data Labs CBC & Chem 7: 01/05/22 18:24 01/11/22 06:16 Labs: Laboratory Results - last 24 hr 01/10/22 01/10/22 01/11/22 08:54 22:47 06:16 Sodium 145 Potassium 3.4 D 3.4 Chloride 107 Carbon Dioxide 27 Anion Gap 14 BUN 7 L Creatinine 1.39 Estim Creat Clear Calc 51.7 Estimated GFR > 60 Random Glucose 124 H Calcium 10.6 H Magnesium 1.3 L* 2.6 Microbiology Microbiology Results: Microbiology 01/05/22 18:10 Blood - Venous Blood Culture - Final No growth after 5 days. 01/05/22 18:24 Blood - Venous Blood Culture - Final Coag negative Staphylococcus Procedures Date of Service Date of Service: 01/11/22 Assessment & Plan Assessment and plan (1) SILVIO (acute kidney injury): Status: Acute Assessment and Plan: Acute kidney injury likely secondary to multifactorial reasons Baseline creatinine around 1.0. H/O? of metabolic acidosis-? on sodium bicarb. Left ureteric stone with left-sided hydronephrosis- S/P L Ureteral stent ?Renal function improved Concur with rest of current supportive management Time Spent With Patient Time: Total time spent is greater than 50% in coordination of care (as documented) at patient's floor/unit and/or counseling patient: Progress Note: Quality Stroke Does the patient have a stroke diagnosis?: No
--- NOTE | 2022-01-11 11:14 | P.DS_ITS ---
DS: Providers Provider Date of Service: 01/12/22 Date of admission: 01/06/22 07:58 Primary care physician: Unknown Physician Consults: 01/06/22 07:48 Consult to Urology Routine Consulting Provider: Blas Rausch Reason for consultation: Obstructing stone Has provider been notified: No 01/06/22 08:31 Consult to Nephrology Routine Consulting Provider: Jaydon Lancaster Reason for consultation: hypernatremia/silvio, hypercalcemia? Has provider been notified: No DS: Diagnosis Discharge Diagnosis (1) SILVIO (acute kidney injury): Status: Acute DS: Summary Hospital Course Hospital Course: Chief Complaint: cough, tachycardia 26-year-old male with past medical history of cerebral palsy chronically bed- bound, completely dependent, microcephaly, nonverbal, history of quadriplegia, seizure disorder, who comes in to the hospital after he was noted to have productive cough and tachycardia at primary care physician's office.? Patient's stepfather at bedside reports that he chronically has tachycardia, but has been noted to have increased cough with no other acute symptoms.? They report no fever, and no other evidence of acute changes.? Patient has a PEG tube for feeding. Home unable to obtain review of systems Vitals are significant for heart rate of 131 which on review of previous vitals chronically elevated, blood pressure of 100/57, normalized on subsequent measuring, Labs are significant for WBC count of 9.4, hemoglobin of 1.1, hematocrit 34.8, sodium of 146, creatinine of 3.52 with a baseline of around 1, calcium of 12.2, alk-phos of 301, COVID-19 negative, influenza A/B, RSV negative. Abdominal pelvic CT showed 5 mm stone in the left ureter with mild hydroureter and pelviectasis Chest CT -ve for any consolidation or pleural effusion Pt had 1 episode of vomiting in the ED Hospital course: # SILVIO with Left hydronephrosis due to obstructing ureteral stone, several bilateral nonobstructing kidney stones also noted on CT s/p Left ureteral stent 01/08/[address] Rausch. Post operative course as expected.? Renal fxn improved.? D/C ashby today.? The patient has an appointment in 2 weeks with his Urologist in [place] Family wants to continue FU with their urologist. Ashby catheter has been removed. Serum creatine continues to trend down present 1.39 which is down from 3.52 on 01/06. # nausea vomiting -no clinical evidence of obstrucntion or imaging evidence of bowel obstruction. Vomiting has resolved and tolerating diet #Hypernatremia--due to dehydration, this has resolved. Sodium was 150 and now 145. # Tachycardia - chronic sinus tachycardia and appears stable around 110s #Aspiration - no evidence of aspiration on CT or chest xray, no fever or chills #Coag neg staph bacteremia--contamination #Feeding --continue tube feed as per home #Hypokalemia and hypomagnesemia these were replaced and potassium and magnesium now normal. Time Spent with Patient Time attestation: Total time spent providing and/or coordinating discharge services: Discharge coordination time: Greater than 30 minutes Quality: Safe Use of Opioids Does Pt have an Active Cancer Diagnosis on the Problem List?: No Quality: Stroke Does the patient have a stroke diagnosis?: No Physical Exam Vital Signs: Vital Signs: Last Vital Signs Temp 97.9 F 01/11/22 08:00 Pulse 113 H 01/11/22 08:00 Resp 16 01/11/22 08:00 BP 126/70 01/11/22 08:00 Pulse Ox 99 01/11/22 08:00 O2 Del Method 01/11/22 08:00 O2 Flow Rate 2 01/07/22 12:10 BMI result Body Mass Index 21.7 Const: Other: Selected Entries 01/12/22 07:35 Temperature 97.6 F Pulse Rate 109 H Respiratory Rate 18 Blood Pressure 139/64 Pulse Oximetry 98 Oxygen Delivery Me thod Room Air General: non-communicative Resp: CTA bilateral CVS: S1,S2,RRR GI: +BS, NT, no distention Skin: No rash Neuro: motor grossly intact Psych: appropriate affect DS: Data Data Completed and Pending Labs on day of discharge: Laboratory Results - last 24 hr 01/10/22 01/10/22 01/11/22 08:54 22:47 06:16 Sodium 145 Potassium 3.4 D 3.4 Chloride 107 Carbon Dioxide 27 Anion Gap 14 BUN 7 L Creatinine 1.39 Estim Creat Clear Calc 51.7 Estimated GFR > 60 Random Glucose 124 H Calcium 10.6 H Magnesium 1.3 L* 2.6 Discharge Plan Discharge Anticipated Discharge Date/Time: 01/11/22 11:06 Patient Disposition: Home Health Service Discharge Diagnosis: Acute Kidney injury, obstructive uropathy, hypokalemia, hypernatremia Referrals: Physician,Unknown J [Physician] - 1 Week Discharge Medications: Continued multivitamin Tablet 1 tab feeding tube DAILY albuterol sulfate 5 mg/mL Solution For Nebulization 5 mg INHALATION Q4H PRN (Reason: Wheezing) baclofen 500 mcg/mL Solution See Rx Instructions .ROUTE .COMPLEX Rx Instructions: iv continuous levocarnitine 330 mg Tablet 660 mg feeding tube BID diazepam 10 mg Kit 5 mg [place] DAILY PRN (Reason: Seizures) polyethylene glycol 3350 17 gram/dose Powder 17 g feeding tube Q2D@0900 melatonin 1 mg Tablet 1 mg feeding tube BEDTIME cholecalciferol (vitamin D3) [Vitamin D3] 25 mcg (1,000 unit) Tablet 25 mcg feeding tube TID Eucerin Cream 1 appl TOPICAL BID KetoVie See Rx Instructions .ROUTE .COMPLEX Rx Instructions: Patient has his own omeprazole 20 mg Capsule,Delayed Release(Dr/Ec) 20 mg feeding tube DAILY@0630 Discharge Orders: Discharge Order (Routine); Ordered 01/12/22 Ordered By: Abdoulaye Hanks Diet: Advance to usual diet Activity on Discharge: As tolerated Stand Alone Forms: Patient Portal Discharge page Care Plan Goals: Full recovery from kidney stone, renal failure and Dehydration Health Concerns: Hydronephrosis, kidney failure, dehydration, nausea and vomitting Plan of Treatment: To resume prior home care continue feeding tube as before To follow up with urologist as scheduled Assessment: as above Discharge Date/Time: 01/12/22 16:19
[2022-01-11 14:32] LABS: IgA 165 mg/dL (47-310); IgG 1096 mg/dL (600-1640); IgM 64 mg/dL (50-300)
[2022-01-11] MEDS: cefTRIAXone sodium 1 GM in 0.9 % Sodium Chloride 50 ML IV (18:26)
[2022-01-11] MEDS: Melatonin 3 MG TABLET 1.5 MG PO (20:02)
[2022-01-12] MEDS: KCl 20 mEq in 5 % Dextrose 20 MEQ/1,000 ML IV.SOLN 100 MEQ IVCONT (02:41)
[2022-01-12 03:48] VITALS: BP 113/75; PULSE 106; RESP 18; TEMP 36.4; O2SAT 98
--- NOTE | 2022-01-12 04:36 | PC.NURSE ---
Addendum entered by Frida Tinsley 01/12/22 05:25: Continuous IV 20Meq +Kcl D5w, at 100ml/hr ongoing, tolerated well. Original Note: Quadriplegic bed-bound patient, alert, non verbal. Peg tube in place with Ketovie feeding currently running at 80ml/hr to be increased by 10mls Q4hrs, to a total of 110ml/hr. Feeding was completed at 2:30am. Feeding to be resumed at 9am @90ml/hr. repositioning and diaper changes performed at regular intervals. No s/s of pain noted.
[2022-01-12 07:35] VITALS: BP 139/64; PULSE 109; RESP 18; TEMP 36.4; O2SAT 98
[2022-01-12] MEDS: 0.9 % Sodium Chloride Flush 3 ML SYRINGE IVFLUSH (09:22)
[2022-01-12] MEDS: Mineral Oil/Petrolatum,White 106 GM Tube 1 APPL TOPICAL (09:22)
[2022-01-12] MEDS: Cholecalciferol (Vitamin D3) 25 MCG TABLET G-TUBE ×2 (09:22→13:55)
[2022-01-12] MEDS: polyethylene glycoL 3350 17 GM POWD.PACK G-TUBE (09:22)
--- NOTE | 2022-01-12 09:40 | P.PNNP_ITS ---
Subjective Subjective Date of Service: 01/12/22 Interval history: Events noted. All recent data reviewed; D/W Hospitalist Physical Exam 2 Vital Signs: Vital Signs: Last Vital Signs Temp 97.6 F 01/12/22 07:35 Pulse 109 H 01/12/22 07:35 Resp 18 01/12/22 07:35 BP 139/64 01/12/22 07:35 Pulse Ox 98 01/12/22 07:35 O2 Del Method 01/12/22 07:35 O2 Flow Rate 2 01/07/22 12:10 BMI result Body Mass Index 21.7 Const: Other: Selected Entries 01/12/22 07:35 Temperature 97.6 F Pulse Rate 109 H Respiratory Rate 18 Blood Pressure 139/64 Pulse Oximetry 98 Oxygen Delivery Me thod Room Air General: non-communicative Resp: CTA bilateral CVS: S1,S2,RRR GI: +BS, NT, no distention Skin: No rash Neuro: motor grossly intact Psych: appropriate affect General: no acute distress HEENT: Head: Yes atraumatic Eyes: Conjunctivae: conjunctivae normal Neck: Neck: Yes normal visual inspection and Yes supple Chest: Chest palpation & inspection: normal inspection of the chest Resp: Effort & Inspection: normal respiratory effort Auscultation: diminished lung sounds Cardio: Jugular venous distension: no JVD Rate: regular rate Rhythm: regular rhythm GI: Other: baclofen pump in place, peg tube Inspection: Yes normal to inspection Palpation (GI): Soft to palpation : Other: ashby in place draining pink tinged urine Penis: normal penis Skin: General skin exam: no rashes or lesions noted Neuro: Cognition (Neuro): normal cognition Extrem: Other: + contractures of lower extremities General: Yes no pedal edema and No pedal edema Psych: Other: nonverbal Objective Data Labs CBC & Chem 7: 01/05/22 18:24 01/11/22 06:16 Labs: Laboratory Results - last 24 hr 01/07/22 06:00 IgG Total 1096 IgA Total 165 IgM 64 DYLON Interpretation SEE NOTE Microbiology Microbiology Results: Microbiology 01/05/22 18:10 Blood - Venous Blood Culture - Final No growth after 5 days. 01/05/22 18:24 Blood - Venous Blood Culture - Final Coag negative Staphylococcus Procedures Date of Service Date of Service: 01/12/22 Assessment & Plan Assessment and plan (1) SILVIO (acute kidney injury): Status: Acute Assessment and Plan: Acute kidney injury likely secondary to multifactorial reasons Baseline creatinine around 1.0. H/O? of metabolic acidosis-? on sodium bicarb. Left ureteric stone with left-sided hydronephrosis- S/P L Ureteral stent ?Renal function improved Concur with rest of current supportive management no new suggestions Time Spent With Patient Time: Total time spent is greater than 50% in coordination of care (as documented) at patient's floor/unit and/or counseling patient: Progress Note: Quality Stroke Does the patient have a stroke diagnosis?: No
[2022-01-12 10:29] LABS: Anion Gap 12 (12-20); Blood Urea Nitrogen 5 mg/dL (9-16); Calcium 10.3 mg/dL (8.4-10.2); Carbon Dioxide 28 mmol/L (22-29); Chloride 105 mmol/L (96-108); Creatinine Clr Calc Pharmacy 54.8; Estimated Glomerular Filt Rate > 60; Glucose Random 119 mg/dL (60-115); Magnesium 1.8 mg/dL (1.6-2.6); Sodium 141 mmol/L (135-145)
--- NOTE | 2022-01-12 11:39 | MHC.CLN ---
F/U TF CURRENTLY RUNNING AT 90 ML PER HOUR. CONTINUE TO INCREASE TOLERATED PER PROTOCOL TO MAX GOAL RATE OF 110 ML PER HOUR. CURRENTLY NO VOMITING AND LOW RESIDUALS. CONTINUE PATENT'S OWN TUBE FEEDING PROVIDED BY FAMILY. ADVANCE TO MAX GOAL RATE TOLERATED. MAX GOAL RATE KETOVIE 3:1 AT 110 ML PER HOUR CONTINUOUS X 16 HOURS. FLUSH WITH FREE WATER 240 ML Q 6 HOURS. PROVIDES 1760 ML FORMULA, 1830 KCALS (38.9 KCALS/KG); 49 G PROTEIN (1.05 G/KG); FREE WATER FORMULA 1496 ML PLUS 960 PV=7302 ML (52.1 ML/KG). PROVIDES SIMILAR KCALS, PROTEIN AND FLUIDS HOME TUBE FEED REGIMEN. FOLLOW FOR TUBE FEED TOLERANCE, LABS, RESIDUALS.
[2022-01-12 11:44] VITALS: BP 125/91; PULSE 116; RESP 18; TEMP 36.8; O2SAT 98
--- NOTE | 2022-01-12 12:08 | MHC.CM.PN ---
DP: PT HAS BEEN MEDICALLY CLEARED FOR DC HOME TODAY. CM SPOKE WITH MOTHER WHO STATES ALL PREVIOUS SERVICES WILL RESUME AND PT WILL BE RESUMING DAY PROGRAM ON SATURDAY. RN MADE AWARE. MOTHER NAYANA WILL BE TRANSPORTING HOME.
--- NOTE | 2022-01-12 13:14 | PC.NURSE ---
TLC removed from right SC per protocol. Blue tip intact. Pressure applied and occlusive dressing applied.
== END 2022-01-12 16:19 | disposition home health service (06) | DRG 463 ==
LOC: HO.ED 22:56 → HO.EDOVER 01-06 02:41 → HO.S3 01-06 16:20
PROVIDERS: Internal Medicine; Internal Medicine Nephrology; Physician Assistant; Student in an Organized Health Care Education/Training Program; Urology; Admitting Provider Internal Medicine; Emergency Provider Emergency Medicine; PCP Internal Medicine Geriatric Medicine; Visit Provider Internal Medicine
PROC: 0T778DZ Dilation of Left Ureter with Intraluminal Device, Via Natural or Artificial Opening Endoscopic (ICD-10-PCS; principal; 2022-01-07 09:00)
DX: N13.6 Pyonephrosis (principal); N17.9 Acute kidney failure, unspecified; E87.1 Hypo-osmolality and hyponatremia; E86.0 Dehydration; G80.8 Other cerebral palsy; N18.2 Chronic kidney disease, stage 2 (mild); E83.52 Hypercalcemia; E87.6 Hypokalemia; G40.909 Epilepsy, unspecified, not intractable, without status epilepticus; Z20.822 Contact with and (suspected) exposure to COVID-19; Z74.01 Bed confinement status; Z99.3 Dependence on wheelchair; Z93.1 Gastrostomy status; Z97.8 Presence of other specified devices; Z88.0 Allergy status to penicillin; Z79.899 Other long term (current) drug therapy
CPT/HCPCS: 0241U; 36415; 71045; 71250; 74018; 74176; 80048; 80053; 80202; 81001; 82306; 82784; 82947; 83605; 83735; 83880; 83970; 84100; 84132; 84156; 84300; 84443; 85025; 86334; 87040; 87147; 87205; 87635; 93005; 99285; C1751; C1758; C1769; C2617; J0696; J1956; J2270; J2370; J2405; J3010; J3370; J3475; Q9965; Q9967

== ENCOUNTER 2022-04-26 04:26 | Inpatient (IN) | payer MEDICAID, SELFPAY ==
--- NOTE | ~2022-04-26 | CT_ITS ---
EXAMINATION: CT ABDOMEN AND PELVIS WITHOUT CONTRAST CLINICAL INFORMATION: Flank pain. Question stone. COMPARISON: 01/06/2022 TECHNIQUE: Multidetector volumetric imaging was performed from the superior aspect of the liver through the pubic symphysis. Sagittal and coronal reformatted images were obtained on the technologist's workstation. This CT examination was performed using dose optimization techniques as appropriate, variously including the following: *Automated exposure control *Adjustment of mA and/or kV according to patient size (this includes techniques or standardized protocols for targeted exams where dose is matched to indication/reason for exam; i.e. extremities or head) *Use of iterative reconstruction technique DLP: Flank pain. Question of stone. mGy-cm FINDINGS: LUNG BASES: The visualized lung bases are unremarkable. LIVER, GALLBLADDER, AND BILIARY TREE: The liver is normal in size, shape, and attenuation. No focal hepatic lesion or biliary ductal dilatation is present. The gallbladder is unremarkable with no evidence of radiopaque gallstones, gallbladder wall thickening, or obvious pericholecystic inflammatory changes. PANCREAS: Unremarkable. SPLEEN: Unremarkable. ADRENAL GLANDS: Unremarkable. KIDNEYS AND URETERS: The kidneys are normal in size, shape, and attenuation. A left nephroureteral stent has been placed with resolution of the previously seen hydroureter and pelvocaliectasis. The 5 mm stone in the distal left ureter is stably positioned, approximately 4 cm from the ureterovesical junction.. Bilateral nonobstructive intrarenal calculi number at least 9 within the left kidney and 5 within the right kidney, measuring up to 7 mm in the lower pole left kidney. No perinephric stranding. BLADDER: Unremarkable. GASTROINTESTINAL TRACT: Gastrostomy tube present within the stomach. Previous Faustino fundoplication. Similar-appearing moderate rectal stool burden without significant perirectal fat stranding. Remainder of the colon unremarkable. Normal small bowel. Normal appendix. ABDOMINAL WALL: No significant hernia is appreciated. LYMPH NODES: Normal. VASCULAR: Unremarkable. PELVIC VISCERA: Unremarkable. OSSEOUS STRUCTURES: No acute or suspicious osseous abnormalities. Long segment bony ankylosis of the thoracolumbar spine / posterior elements CT/CT abdomen pelvis wo IV con IMPRESSION: * Interval placement of a left nephroureteral stent with resolution of the previously seen hydroureter and pelvocaliectasis. The 5 mm stone in the distal left ureter is stably positioned, approximately 4 cm from the ureterovesical junction. * Bilateral nonobstructive intrarenal calculi as described. * No hydronephrosis.
[2022-04-26 04:45] VITALS: BP 119/90; PULSE 143; RESP 16; TEMP 36.2; O2SAT 98; BMI 15.0
--- NOTE | 2022-04-26 05:03 | ED_ITS ---
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 Pain as patient is grimacing vomiting off and on for last 2 days have more frequently g rimacing and vomiting. No fever Related Data Home Medications Medication Instructions Recorded Confirmed KetoVie See Rx Instructions .Route .COMPLEX 01/18/21 01/06/22 albuterol sulfate 5 mg/mL(0.5 %) 5 mg inhalation Q4H PRN Wheezing 01/18/21 01/06/22 solution for nebulization baclofen 500 mcg/mL intrathecal See Rx Instructions .Route .COMPLEX 01/18/21 01/06/22 solution cholecalciferol (vitamin D3) 25 25 mcg feeding tube TID 01/18/21 01/06/22 mcg (1,000 unit) tablet (Vitamin D3) diazepam 10 mg rectal kit 5 mg AR DAILY PRN Seizures 01/18/21 01/06/22 lanolin alcohols-mineral 1 appl topical BID 01/18/21 01/06/22 oil-w.petrolatum-ceresin topical cream (Eucerin topical cream) levocarnitine 330 mg tablet 660 mg feeding tube BID 01/18/21 01/06/22 melatonin 1 mg tablet 1 mg feeding tube BEDTIME 01/18/21 01/06/22 multivitamin 1 tab feeding tube DAILY 01/18/21 01/06/22 polyethylene glycol 3350 17 17 g feeding tube Q2D@0900 01/18/21 01/06/22 gram/dose oral powder omeprazole 20 mg capsule,delayed 20 mg feeding tube DAILY@0630 01/06/22 01/06/22 release Allergies Allergy/AdvReac Type Severity Reaction Status Date / Time amoxicillin [AMOXICILLIN] Allergy Unknown RASH Verified 03/01/21 13:06 Review of Systems Review of Systems Yes Unobtainable due to mental condition (Nonverbal) PMFSH Past Medical History Medical History Cerebral palsy Hypercalcemia Osteoporosis Quadriplegia Seizure disorder Tachycardia Vitamin D deficiency Surgical History Gastrointestinal tube present History of back surgery Presence of intrathecal baclofen pump Family History Family History Mother Anemia Father No problems noted. 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 Frequently grimacing Eyes: PERRLA, No Nystagmus ENT: Pharynx normal. Oral Mucosa moist Neck: Normal inspection. Neck supple. CVS: Sinus tachycardia. Pulses normal. Respiratory: No respiratory distress. Equal air entry bilateral, no wheezing/rales/rhonchi Abdomen: Soft and nontender. Bowel sounds are present, no mass palpable, no CVA tenderness G-tube in blood Skin: Skin warm and dry. Normal skin color. Normal skin turgor. Extremities: No lower extremity edema. Neuro: Awake with residual cerebral palsy weakness Medical Decision Making Medical Decision Making [facility] Narrative: Patient with questionable abdominal pain with tachycardia with history of kidney stone CT scan showed ?Interval placement of a left nephroureteral stent with resolution of the previously seen hydroureter and pelvocaliectasis. The 5 mm stone in the distal left ureter is stably positioned, approximately 4 cm from the ureterovesical junction. *? Bilateral nonobstructive intrarenal calculi as described. *? No hydronephrosis.. Chemistry still pending will give IV fluids pain management check UA Lab Data [facility] Lab Attestation statement: I reviewed the patient's lab results. 04/26/22 05:34 04/26/22 05:34 Labs: Lab Results 02/09/23 Range/Units 05:34 WBC 8.1 (4.8-10.8) X10*3/uL RBC 5.41 D (4.60-5.80) X10*6/uL Hgb 15.4 D (14.0-18.0) g/dl Hct 48.2 D (42.0-52.0) % MCV 89.1 (80.0-98.0) fL MCH 28.5 (27.0-33.0) pg MCHC 32.0 (31.0-36.0) g/dl RDW 14.4 (11.0-16.0) % Plt Count 273 (160-400) X10*3/uL MPV 10.9 (9.4-12.4) fL Immature Gran % (Auto) 0.4 (0.0-0.4) % Neut % (Auto) 58.9 (45-73) % Lymph % (Auto) 25.0 (20-40) % [place] % (Auto) 12.7 H (2-11) % Eos % (Auto) 2.4 (0-4) % Baso % (Auto) 0.6 (0-2) % Lymph # (Auto) 2.0 (1.2-4.9) X10*3/uL [place] # (Auto) 1.0 (0.1-1.2) X10*3/uL Eos # (Auto) 0.2 (0.0-0.4) X10*3/uL Baso # (Auto) 0.1 (0.0-0.2) X10*3/uL Abs Immat Gran (auto) 0.03 (0.00-0.03) X10*3/uL Absolute Neuts (auto) 4.8 (2.0-8.3) x10*3/uL Absolute Nucleated RBC 0.000 (0.0-0.012) X10*3/uL Nucleated RBC % (auto) 0.0 (0.0-0.2) /100WBC Independent Interpretation I performed an independent interpretation of an: EKG Interpretation: Sinus tachycardia heart rate 146 beats per minute nonspecific ST T wave changes no acute ischemia Radiology Impression Discussion of test interpretation with radiology: I have reviewed the radiologist's reading. Radiologist Impression: ?Interval placement of a left nephroureteral stent with resolution of the previously seen hydroureter and pelvocaliectasis. The 5 mm stone in the distal left ureter is stably positioned, approximately 4 cm from the ureterovesical junction. *? Bilateral nonobstructive intrarenal calculi as described. *? No hydronephrosis. Medications Administered Discontinued Medications Generic Name Dose Route Start Last Admin Trade Name Freq PRN Reason Stop Dose Admin Sodium Chloride 1,000 mls @ 999 mls/hr 04/26/22 05:05 04/26/22 05:39 Ns IV 04/26/22 06:05 999 mls/hr .Q1H1M ONE Administration Morphine Sulfate 4 mg 04/26/22 05:05 04/26/22 05:39 Morphine Sulfate 4 Mg/Ml Cartridge IVPUSH 04/26/22 05:06 4 mg ONCE ONE Administration Protocol Ondansetron HCl 4 mg 04/26/22 05:03 04/26/22 05:39 Ondansetron Hcl 4 Mg/2 Ml Vial IVPUSH 04/26/22 05:04 4 mg ONCE ONE Administration Discharge Plan Discharge Clinical Impression: Vomiting Patient Disposition: Still a Patient Prescriptions: No Action multivitamin Tablet 1 tab feeding tube DAILY albuterol sulfate 5 mg/mL Solution For Nebulization 5 mg INHALATION Q4H PRN (Reason: Wheezing) baclofen 500 mcg/mL Solution See Rx Instructions .ROUTE .COMPLEX Rx Instructions: iv continuous levocarnitine 330 mg Tablet 660 mg feeding tube BID diazepam 10 mg Kit 5 mg AR DAILY PRN (Reason: Seizures) polyethylene glycol 3350 17 gram/dose Powder 17 g feeding tube Q2D@0900 melatonin 1 mg Tablet 1 mg feeding tube BEDTIME cholecalciferol (vitamin D3) [Vitamin D3] 25 mcg (1,000 unit) Tablet 25 mcg feeding tube TID Eucerin Cream 1 appl TOPICAL BID KetoVie See Rx Instructions .ROUTE .COMPLEX Rx Instructions: Patient has his own omeprazole 20 mg Capsule,Delayed Release(Dr/Ec) 20 mg feeding tube DAILY@0630
--- NOTE | 2022-04-26 05:05 | ECG_ITS ---
Test Reason : NAUSEA Blood Pressure : / mmHG Vent. Rate : 146 BPM Atrial Rate : 146 BPM P-R Int : 098 ms QRS Dur : 072 ms QT Int : 270 ms P-R-T Axes : 049 073 016 degrees QTc Int : 420 ms Sinus tachycardia with short KS Nonspecific T wave abnormality Abnormal ECG When compared with ECG of 05-JAN-2022 17:12, Nonspecific T wave abnormality, worse in Inferior leads Nonspecific T wave abnormality now evident in Lateral leads Referred By: Diego Milligan Electronically Signed By:RAYMOND OLSEN MD
[2022-04-26 05:39] LABS: MANUAL DIFF FLAG NO
[2022-04-26] MEDS: 0.9 % Sodium Chloride 1,000 ML 999 ML IV (05:39)
[2022-04-26] MEDS: ondansetron HCL 4 MG/2 ML VIAL IVPUSH (05:39)
[2022-04-26] MEDS: Morphine Sulfate 4 MG/ML CARTRIDGE IVPUSH (05:39)
[2022-04-26 05:40] LABS: Basophils Absolute Auto 0.1 X10*3/uL (0.0-0.2); Basophils Percent Auto 0.6 % (0-2); Eosinophils Absolute Auto 0.2 X10*3/uL (0.0-0.4); Eosinophils Percent Auto 2.4 % (0-4); Hematocrit 48.2 % (42.0-52.0); Hemoglobin 15.4 g/dl (14.0-18.0); Imm Gran Abs Auto 0.03 X10*3/uL (0.00-0.03); Imm Gran Pct Auto 0.4 % (0.0-0.4); Mean Corpuscular Hemoglobin 28.5 pg (27.0-33.0); Mean Corpuscular Volume 89.1 fL (80.0-98.0); Mean Platelet Volume 10.9 fL (9.4-12.4); Monocytes Percent Auto 12.7 % (2-11); Neutrophils Absolute Auto 4.8 x10*3/uL (2.0-8.3); Neutrophils Percent Auto 58.9 % (45-73); Platelet Count 273 X10*3/uL (160-400); Red Blood Count 5.41 X10*6/uL (4.60-5.80); Red Cell Distribution Width 14.4 % (11.0-16.0); White Blood Count 8.1 X10*3/uL (4.8-10.8)
--- NOTE | 2022-04-26 06:31 | MHC.EDTECH ---
Unable to get repeat chemistry. PT is a difficult stick. RN made aware
[2022-04-26 07:17] VITALS: BP 118/65; PULSE 120; RESP 13; TEMP 36.8; O2SAT 98
[2022-04-26 07:29] LABS: Appearance Urine Cloudy; Color Urine Yellow; Glucose Urine UA Negative (Negative); Leukocyte Esterase Urine Moderate (2+) (Negative); Nitrite Urine Negative (Negative); UMIC TRIGGER UACC YES; Urine Blood Large (3+) (Negative); Urine Ketones 80 mg/dL (Negative); Urine Protein 30 (1+) mg/dL (Neg-Trace)
[2022-04-26 07:43] LABS: Bacteria Urine None Seen (None Seen); RBC Urine >20 /HPF (0-2); Squamous Epithelial Cell Urine 0-2 /HPF (0-2); UACC Culture Trigger YES; WBC Urine 21-50 /HPF (0-5)
[2022-04-26] MEDS: cefTRIAXone sodium 1 GM in 0.9 % Sodium Chloride 50 ML IV (08:44)
--- NOTE | 2022-04-26 09:04 | PC.NURSE ---
pt has had 2 chemistry bmp hemolize, pct Zeeshan attempted a fingerstick but unsuccessful at approx 840 she called the lab to get assistance. they are here now and will attempt
[2022-04-26 10:11] LABS: Alanine Aminotransferase 10 U/L (0-40); Albumin Level 3.7 g/dL (3.5-5.0); Alkaline Phosphatase 52 U/L (39-117); Anion Gap 26 (12-20); Aspartate Amino Transferase 16 U/L (5-37); Bilirubin Total 0.2 mg/dL (0.0-1.0); Blood Urea Nitrogen 34 mg/dL (9-16); Calcium 10.6 mg/dL (8.4-10.2); Carbon Dioxide 28 mmol/L (22-29); Chloride 102 mmol/L (96-108); Creatinine Clr Calc Pharmacy 64.8; Estimated Glomerular Filt Rate > 60; Glucose Random 80 mg/dL (60-115); Lipase 718 U/L (8-78); Potassium 4.4 mmol/L (3.3-5.1); Sodium 152 mmol/L (135-145); Total Protein 6.4 g/dL (6.5-8.0)
--- NOTE | 2022-04-26 11:30 | P.HPHOSP_ITS ---
History of Present Illness Date of Service: 04/26/22 Attending physician on admission: Medardo Lyman Chief Complaint: Fever, vomiting Pt is a 26-year-old male with a PMH significant for cerebral palsy, paraplegia, chronic tachycardia, and seizure disorder?who presents to the ED with fever and vomiting. Patient is completely dependent and nonverbal at baseline. HPI obtained from phone call with mother. Mother states the patient has been experiencing vomiting for the past week, especially at night. Apparently not vomiting during the day. Pt has a history of kidney stones, last admitted in December of 2021 for an obstructing ureteral stone with stent placed. Patient then had similar presenting symptoms of vomiting. Patient spiked a fever last night and had elevated blood pressure of 163/101, which prompted visit to the ED. Patient is unable to communicate pain and it is difficult to determine whether not he is experiencing pain. Of note, patient has PEG tube for feeding. Pt wears a brief, no in-dwelling cather. In the ED patient was afebrile but tachycardic to 143. Labs were significant for WBC WNL, creatinine of 0.85, hypernatremia of 152, elevated BUN of 34, elevated lipase of 718. UA was positive for UTI. CT?of abdomen and pelvis found no evidence of gallbladder wall thickening, radiopaque gallstones, or pericholecystic inflammatory changes. CT also noted no hydronephrosis, left stent in place and 5 mm stone in distal left ureter stably positioned, and numerous nonobstructive intrarenal calculi bilaterally. EKG demonstrated sinus tachycardia without evidence ST elevations or depressions. Pt was treated with ondansetron, morphine, IVF, ceftriaxone. Pt will be admitted to the hospital for treatment and further evaluation left UTI and hypernatremia. Review of Systems Review of Systems: Unable to obtain due to patient's mentation [facility] Medical History Cerebral palsy Hypercalcemia Osteoporosis Quadriplegia Seizure disorder Tachycardia Vitamin D deficiency Family History Mother Anemia Father No problems noted. 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) Alcohol intake: never Patient Tobacco Use Status: Never used Tobacco Advance Directives: No service: No Current occupational status: disabled Meds Allergies Allergy/AdvReac Type Severity Reaction Status Date / Time amoxicillin [AMOXICILLIN] Allergy Unknown RASH Verified 03/01/21 13:06 Active Medications: Current Medications Pharmacy Consult (Consult Rx Perform Med Rec) 1 each MISCELLANE ONCE PRN PRN Reason: Consult order Home Medications Medication Instructions Recorded Confirmed Last Taken Type KetoVie See Rx Instructions .Route .COMPLEX 01/18/21 04/26/22 04/25/22 History baclofen 500 mcg/mL intrathecal See Rx Instructions .Route .COMPLEX 01/18/21 04/26/22 04/25/22 History solution cholecalciferol (vitamin D3) 25 25 mcg feeding tube TID 01/18/21 04/26/22 04/25/22 History mcg (1,000 unit) tablet (Vitamin D3) diazepam 10 mg rectal kit 5 mg [place] DAILY PRN Seizures 01/18/21 04/26/22 01/05/22 History melatonin 1 mg tablet 1 mg feeding tube BEDTIME 01/18/21 04/26/22 04/25/22 History multivitamin 1 tab feeding tube DAILY 01/18/21 04/26/22 04/25/22 History polyethylene glycol 3350 17 17 g feeding tube DAILY 01/18/21 04/26/22 04/25/22 History gram/dose oral powder omeprazole 20 mg capsule,delayed 20 mg feeding tube DAILY@0630 01/06/22 04/26/22 04/25/22 History release clsqswey-eechubqmfb-oqtx-citAc 1 packet PO BID 04/26/22 04/26/22 04/25/22 History oral packet Physical Exam Vital Signs and Narrative: Vital Signs: Last Vital Signs Temp 98.3 F 04/26/22 07:17 Pulse 120 H 04/26/22 07:17 Resp 13 04/26/22 07:17 BP 118/65 04/26/22 07:17 Pulse Ox 98 04/26/22 07:17 O2 Del Method 04/26/22 07:17 BMI result Body Mass Index 15.0 General: No acute distress Resp: CTA bilaterally CVS: S1, S2, tachycardic GI: +BS, soft to palpation Skin: No rash Neuro: Baseline congnition Extremities: No edema Results Labs 04/26/22 05:34 04/26/22 09:24 Labs: Laboratory Results - last 24 hr 04/26/22 04/26/22 04/26/22 05:34 07:16 09:24 MCV 89.1 MCH 28.5 MCHC 32.0 RDW 14.4 Plt Count 273 MPV 10.9 Immature Gran % (Auto) 0.4 Neut % (Auto) 58.9 Lymph % (Auto) 25.0 [place] % (Auto) 12.7 H Eos % (Auto) 2.4 Baso % (Auto) 0.6 Lymph # (Auto) 2.0 [place] # (Auto) 1.0 Eos # (Auto) 0.2 Baso # (Auto) 0.1 Abs Immat Gran (auto) 0.03 Absolute Neuts (auto) 4.8 Absolute Nucleated RBC 0.000 Nucleated RBC % (auto) 0.0 Anion Gap 26 H Estim Creat Clear Calc 64.8 Estimated GFR > 60 Random Glucose 80 Calcium 10.6 H Total Bilirubin 0.2 AST 16 ALT 10 Alkaline Phosphatase 52 Total Protein 6.4 L Albumin 3.7 Lipase 718 H Urine Color Yellow Urine Appearance Cloudy Urine pH 7.0 Ur Specific [place] 1.020 Urine Protein 30 (1+) H Urine Glucose (UA) Negative Urine Ketones 80 Urine Blood Large (3+) H Urine Nitrite Negative Ur Leukocyte Esterase Moderate (2+) H Urine RBC >20 H Urine WBC 21-50 H Ur Squamous Epith Cells 0-2 Urine Bacteria None Seen Hyaline Casts 3-5 Imaging Radiologist's Impressions: Impressions Abdomen/Pelvis CT 04/26/22 05:55 IMPRESSION: * Interval placement of a left nephroureteral stent with resolution of the previously seen hydroureter and pelvocaliectasis. The 5 mm stone in the distal left ureter is stably positioned, approximately 4 cm from the ureterovesical junction. * Bilateral nonobstructive intrarenal calculi as described. * No hydronephrosis. Assessment and Plan (1) Vomiting: Status: Acute (2) Acute UTI: Status: Acute (3) Hypernatremia: Status: Acute Plan Pt is a 26-year-old male with a PMH significant for cerebral palsy, paraplegia, chronic tachycardia, and seizure disorder?who presents to the ED with fever and vomiting. Patient is completely dependent and nonverbal at baseline. Pt tested positive for UTI and found to have sodium of 152. Pt will be admitted to the hospital for treatment and further evaluation left UTI and hypernatremia. UTI Unclear etiology, patient wears brief, no indwelling catheter, ?renal calculi Ceftriaxone 1g qd, day 1 Follow cultures Elevated lipase Etiology unclear, CT clear for gallbladder thickening IVF Follow labs Hypernatremia Likely secondary to dehydration d/t vomiting IVF: D5 1/2 normal saline Repeat sodium tonight Follow labs Renal calculi CT shows evidence of multiple nonobstructing renal calculi and 5 mm stone in distal left ureter, stably positioned. No hydronephrosis Nephrology consult Tachycardia Patient has chronic sinus tachycardia, though current elevation also possibly secondary to UTI Treat as above Monitor HR Diet Pt is fed through feeding tube Receives 1 jar of nutrition x3 daily: once at 9:00, 12:00, 18:00 with rate of 240/hr Receives for jars of nutrition overnight with rate of 120/hr Tube is flushed with 20 cc of water after each feeding Syringes to administer medication and flushing located in patient's belongings Full Code Attending:?Dr. Lyman DVT Prophylaxis: Lovenox Pt will require a hospitalization of at least two nights for treatment of? with . Time Spent With Patient Time: Total time managing care of this patient today ____ minutes. Quality Stroke Does the patient have a stroke diagnosis?: No VTE Prior VTE?: No VTE Risk Level:: Medical - moderate - high VTE Device Contraindication: Treatment Not Indicated VTE Drug Contraindication: N/A - Med Ordered
[2022-04-26 12:09] LABS: Triglycerides 116 mg/dL
[2022-04-26 12:19] LABS: COVID-19 Test Negative (Negative); IDNOW Serial# 6674DD1D
--- NOTE | 2022-04-26 12:50 | PHA.MEDREC ---
Pharmacy Consult ? Medication Reconciliation Pharmacy has completed the medication reconciliation. Spoke with patient momShari to confirm medications. Patient is on a powder levocarntinie instead of tablets. Lisa Pringle, FilipeD
[2022-04-26 13:57] VITALS: BP 138/92; PULSE 122; RESP 15; O2SAT 97
[2022-04-26 15:42] VITALS: BP 158/87; PULSE 132; RESP 16
[2022-04-26] MEDS: Dextrose 5 % and 0.45 % NaCl 1,000 ML 100 ML IVCONT (15:42)
[2022-04-26] MEDS: Enoxaparin Sodium 40 MG/0.4 ML SYRINGE SUBCUT (15:42)
[2022-04-26 16:00] VITALS: BP 144/93; PULSE 127; RESP 15; TEMP 36.6; O2SAT 98
--- NOTE | 2022-04-26 17:27 | PC.NURSE ---
Lex notified patient had no diet order states he's working on his orders now. No need for telemetry patient is chronically Sinus tachycardic 100-130's Patient has an inpatient bed 353.
--- NOTE | 2022-04-26 17:49 | MHC.EDTECH ---
pt refused 1800 vitals sign ,phylicia knapp aware ,pt ate 20 of dinner ,drank 120 ml fluids .
--- NOTE | 2022-04-26 17:50 | MHC.EDTECH ---
pt was incontinent of urine ,care given ,linen change ,pt resting quietly in bed .
[2022-04-26 18:24] VITALS: BP 130/85; PULSE 114; RESP 18; TEMP 36.9; O2SAT 97
[2022-04-26] MEDS: Cholecalciferol (Vitamin D3) 25 MCG TABLET G-TUBE (19:53)
[2022-04-26] MEDS: Melatonin 3 MG TABLET 1.5 MG PO (19:53)
[2022-04-27] MEDS: 0.9 % Sodium Chloride Flush 3 ML SYRINGE IVFLUSH (03:19)
[2022-04-27] MEDS: Dextrose 5 % and 0.45 % NaCl 1,000 ML 100 ML IVCONT ×3 (03:19→19:41)
[2022-04-27 03:48] VITALS: BP 113/69; PULSE 100; RESP 18; TEMP 36.1; O2SAT 97
[2022-04-27 06:33] LABS: Anion Gap 18 (12-20); Blood Urea Nitrogen 26 mg/dL (9-16); Calcium 9.2 mg/dL (8.4-10.2); Carbon Dioxide 30 mmol/L (22-29); Chloride 103 mmol/L (96-108); Creatinine Clr Calc Pharmacy 77.6; Estimated Glomerular Filt Rate > 60; Glucose Random 104 mg/dL (60-115); Potassium 4.3 mmol/L (3.3-5.1); Sodium 147 mmol/L (135-145)
[2022-04-27 07:10] VITALS: BP 115/65; PULSE 101; RESP 19; TEMP 36.6; O2SAT 97
--- NOTE | 2022-04-27 09:24 | P.CNUR_ITS ---
History of Present Illness Consult details Consult date: 04/27/22 Narrative: 26-year-old male with a PMH significant for cerebral palsy, paraplegia, chronic tachycardia, and seizure disorder?who lives at home with his Mother, presented to the ED with fever and vomiting. Patient is nonverbal at baseline. H/O nephrolithiasa, admission in December for UTI and left hydronephrosis secondary to left ureteral stone s/p ureteral stent on 01/07/22. Patient also with symptoms of fever. In the ED patient was afebrile but tachycardic to 143. Labs were significant for WBC WNL, creatinine of 0.85, elevated BUN of 34, .? UA >20 RBC's, 20-30 WBC's, nitrite negative, urine c/s pending. Pertinent CT findings: 04/26/22 KIDNEYS AND URETERS: The kidneys are normal in size, shape, and attenuation. A left nephroureteral stent has been placed with resolution of the previously seen hydroureter and pelvocaliectasis. The 5 mm stone in the distal left ureter is stably positioned, Bilateral nonobstructive intrarenal calculiNo perinephric stranding. ? BLADDER: Unr.emarkable.? Review of Systems Review of Systems: 10 point ROS negative other than stated [facility] Past Medical History Medical History Cerebral palsy Hypercalcemia Osteoporosis Quadriplegia Seizure disorder Tachycardia Vitamin D deficiency Family History Family History Mother Anemia Father No problems noted. 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) Unable to assess alcohol history related to: Unknown Alcohol intake: never Patient Tobacco Use Status: Never used Tobacco service: No Current occupational status: disabled Meds Allergies Allergy/AdvReac Type Severity Reaction Status Date / Time amoxicillin [AMOXICILLIN] Allergy Unknown RASH Verified 03/01/21 13:06 Active Medications: Current Medications Enoxaparin Sodium (Enoxaparin Sodium 40 Mg/0.4 Ml Syringe) 40 mg SUBCUT Q24H [facility] Last Admin: 04/26/22 15:42 Dose: 40 mg Dextrose/Sodium Chloride (D51/2ns) 1,000 mls @ 100 mls/hr IVCONT .Q10H [facility] Last Admin: 04/27/22 03:19 Dose: 100 mls/hr Ceftriaxone Sodium 1 gm/ (Sodium Chloride) 50 mls @ 100 mls/hr IV Q24H [facility] Melatonin (Melatonin 3 Mg Tablet) 1.5 mg PO BEDTIME [facility] Last Admin: 04/26/22 19:53 Dose: 1.5 mg Non-Formulary Medication (Njkpvkhs-Dghrhxtvbf-Lmgx-Citac) 1 packet G-TUBE BID [facility] Non-Formulary Medication (Baclofen) 80 mcg INTRATHECA DAILY [facility] Last Admin: 04/26/22 18:38 Dose: Not Given Omeprazole (Omeprazole 20 Mg/10 Ml Susp.Recon) 20 mg G-TUBE DAILY@0630 [facility] Last Admin: 04/27/22 05:53 Dose: 20 mg Pharmacy Consult (Consult Rx Perform Med Rec) 1 each MISCELLANE ONCE PRN PRN Reason: Consult order Polyethylene Glycol (Polyethylene Glycol 3350 17 Gm Powd.Pack) 17 gm G-TUBE DAILY [facility] Last Admin: 04/27/22 07:49 Dose: Not Given Sodium Chloride (0.9 % Sodium Chloride Flush 3 Ml Syringe) 3 ml IVFLUSH QSHIFT [facility] Last Admin: 04/27/22 07:19 Dose: Not Given Vitamin D (Cholecalciferol (Vitamin D3) 25 Mcg Tablet) 25 mcg G-TUBE TID [facility] Last Admin: 04/26/22 19:53 Dose: 25 mcg Home Medications Medication Instructions Recorded Confirmed Last Taken Type KetoVie See Rx Instructions .Route .COMPLEX 01/18/21 04/26/22 04/25/22 History baclofen 500 mcg/mL intrathecal See Rx Instructions .Route .COMPLEX 01/18/21 04/26/22 04/25/22 History solution cholecalciferol (vitamin D3) 25 25 mcg feeding tube TID 01/18/21 04/26/22 04/25/22 History mcg (1,000 unit) tablet (Vitamin D3) diazepam 10 mg rectal kit 5 mg [place] DAILY PRN Seizures 01/18/21 04/26/22 01/05/22 History melatonin 1 mg tablet 1 mg feeding tube BEDTIME 01/18/21 04/26/22 04/25/22 History multivitamin 1 tab feeding tube DAILY 01/18/21 04/26/22 04/25/22 History polyethylene glycol 3350 17 17 g feeding tube DAILY 01/18/21 04/26/22 04/25/22 History gram/dose oral powder omeprazole 20 mg capsule,delayed 20 mg feeding tube DAILY@0630 01/06/22 04/26/22 04/25/22 History release zuvyulgf-wcfbgqydcb-rggx-citAc 1 packet PO BID 04/26/22 04/26/22 04/25/22 History oral packet Physical Exam Vital Signs: Vital Signs: Last Vital Signs Temp 97.8 F 04/27/22 07:10 Pulse 101 H 04/27/22 07:10 Resp 19 04/27/22 07:10 BP 115/65 04/27/22 07:10 Pulse Ox 97 04/27/22 07:10 O2 Del Method 04/27/22 07:10 BMI result Body Mass Index 15.0 Const: General: no acute distress HEENT: Head: Yes atraumatic Eyes: Conjunctivae: conjunctivae normal Neck: Neck: Yes normal visual inspection Chest: Chest palpation & inspection: normal inspection of the chest Resp: Effort & Inspection: normal respiratory effort Cardio: Jugular venous distension: no JVD GI: Other: baclofen pump in place, peg tube Inspection: Yes normal to inspection Palp ation (GI): Soft to palpation : Other: [place] cath in place, no scrotal swelling Penis: normal penis Skin: General skin exam: no rashes or lesions noted Extrem: Other: + contractures of lower extremities General: No pedal edema Psych: Other: nonverbal Results Labs 04/26/22 05:34 04/27/22 05:25 Labs: Abnormal lab results 04/26/22 04/27/22 Range/Units 09:24 05:25 Sodium 152 H 147 H (135-145) mmol/L Carbon Dioxide 30 H (22-29) mmol/L Anion Gap 26 H (12-20) BUN 34 H 26 H (9-16) mg/dL Calcium 10.6 H (8.4-10.2) mg/dL Total Protein 6.4 L (6.5-8.0) g/dL Lipase 718 H (8-78) U/L BMP 04/26/22 04/27/22 09:24 05:25 Sodium 152 H 147 H Potassium 4.4 4.3 Chloride 102 103 Carbon Dioxide 28 30 H BUN 34 H 26 H Creatinine 0.85 0.71 Calcium 10.6 H 9.2 D Liver Function 04/26/22 Range/Units 09:24 Total Bilirubin 0.2 (0.0-1.0) mg/dL AST 16 (5-37) U/L ALT 10 (0-40) U/L Alkaline Phosphatase 52 (39-117) U/L Albumin 3.7 (3.5-5.0) g/dL Urine 04/26/22 Range/Units 07:16 Urine Color Yellow Urine Appearance Cloudy Urine pH 7.0 (5.0-9.0) Ur Specific [place] 1.020 (1.005-1.025) Urine Protein 30 (1+) H (Neg-Trace) mg/dL Urine Glucose (UA) Negative (Negative) mg/dL All other labs normal. Imaging Abdomen CT scan report/results: report reviewed and image reviewed CT scan - pelvis: report reviewed and image reviewed Additional studies: Date of Service: 04/26/22 CT ABDOMEN AND PELVIS WITHOUT CONTRAST? CLINICAL INFORMATION: Flank pain. Question stone.? COMPARISON: 01/06/2022? TECHNIQUE: Multidetector volumetric imaging was performed from the superior aspect of the liver through the pubic symphysis. Sagittal and coronal reformatted images were obtained on the technologist's workstation.? This CT examination was performed using dose optimization techniques as appropriate, variously including the following: *Automated exposure control *Adjustment of mA and/or kV according to patient size (this includes techniques or standardized protocols for targeted exams where dose is matched to indication/reason for exam; i.e. extremities or head) *Use of iterative reconstruction technique DLP: Flank pain. Question of stone. mGy-cm FINDINGS: LUNG BASES: The visualized lung bases are unremarkable.? LIVER, GALLBLADDER, AND BILIARY TREE: The liver is normal in size, shape, and attenuation. No focal hepatic lesion or biliary ductal dilatation is present. The gallbladder is unremarkable with no evidence of radiopaque gallstones, gallbladder wall thickening, or obvious pericholecystic inflammatory changes.? PANCREAS: Unremarkable.? SPLEEN: Unremarkable.? ADRENAL GLANDS: Unremarkable.? KIDNEYS AND URETERS: The kidneys are normal in size, shape, and attenuation. A left nephroureteral stent has been placed with resolution of the previously seen hydroureter and pelvocaliectasis. The 5 mm stone in the distal left ureter is stably positioned, approximately 4 cm from the ureterovesical junction.. Bilateral nonobstructive intrarenal calculi number at least 9 within the left kidney and 5 within the right kidney, measuring up to 7 mm in the lower pole left kidney. No perinephric stranding. ? BLADDER: Unremarkable.? GASTROINTESTINAL TRACT: Gastrostomy tube present within the stomach. Previous Faustino fundoplication. Similar-appearing moderate rectal stool burden without significant perirectal fat stranding. Remainder of the colon unremarkable. Normal small bowel. Normal appendix.? ? ABDOMINAL WALL: No significant hernia is appreciated.? LYMPH NODES: Normal. VASCULAR: Unremarkable. PELVIC VISCERA: Unremarkable.? OSSEOUS STRUCTURES: No acute or suspicious osseous abnormalities. Long segment bony ankylosis of the thoracolumbar spine? / posterior elements ? IMPRESSION: *? Interval placement of a left nephroureteral stent with resolution of the previously seen hydroureter and pelvocaliectasis. The 5 mm stone in the distal left ureter is stably positioned, approximately 4 cm from the ureterovesical junction. *? Bilateral nonobstructive intrarenal calculi as described. *? No hydronephrosis. ? Assessment and Plan (1) Acute UTI: Status: Acute (2) Left ureteral calculus: Status: Acute (3) Ureteral stent present: Status: Acute (4) Nephrolithiasis: Status: Acute Plan Pt is on IV Abx urine c/s pending Plan Cysto Left ureteroscopy possible laser litho left ureteral stone, stent exchange on Saturday Time Spent With Patient Time: Total time managing care of this patient today ____ minutes. Procedures Date of Service Date of Service: 04/27/22
[2022-04-27] MEDS: Cholecalciferol (Vitamin D3) 25 MCG TABLET G-TUBE ×3 (09:35→19:43)
[2022-04-27] MEDS: cefTRIAXone sodium 1 GM in 0.9 % Sodium Chloride 50 ML IV (09:35)
--- NOTE | 2022-04-27 10:27 | P.PNIM_ITS ---
Subjective Subjective Date of Service: 04/27/22 Interval History: Non verbal, appear comfortable Physical Exam Vital Signs: Vital Signs: Last Vital Signs Temp 97.8 F 04/27/22 07:10 Pulse 101 H 04/27/22 07:10 Resp 19 04/27/22 07:10 BP 115/65 04/27/22 07:10 Pulse Ox 97 04/27/22 07:10 O2 Del Method 04/27/22 07:10 BMI result Body Mass Index 15.0 Const: Other: General: non verbal, comfortable Resp: CTA bilateral CVS: S1,S2,RRR GI: +BS, NT, no distention Skin: No rash Neuro: motor grossly intact Psych: appropriate affect Objective Data Active Medications Enoxaparin Sodium (Enoxaparin Sodium 40 Mg/0.4 Ml Syringe) 40 mg SUBCUT Q24H [facility] Last Admin: 04/26/22 15:42 Dose: 40 mg Documented By: ANA Dextrose/Sodium Chloride (D51/2ns) 1,000 mls @ 100 mls/hr IVCONT .Q10H [facility] Last Admin: 04/27/22 03:19 Dose: 100 mls/hr Documented By: JENNIFER Ceftriaxone Sodium 1 gm/ (Sodium Chloride) 50 mls @ 100 mls/hr IV Q24H [facility] Last Infusion: 04/27/22 10:12 Dose: 0 mls/hr Documented By: SANDRINE Melatonin (Melatonin 3 Mg Tablet) 1.5 mg PO BEDTIME [facility] Last Admin: 04/26/22 19:53 Dose: 1.5 mg Documented By: JENNIFER Non-Formulary Medication (Lmwuztjt-Kqfqjnadfp-Wiqo-Citac) 1 packet G-TUBE BID [facility] Non-Formulary Medication (Baclofen) 80 mcg INTRATHECA DAILY [facility] Last Admin: 04/27/22 10:12 Dose: Not Given Documented By: SANDRINE Non-Admin Reason: Already infusing Omeprazole (Omeprazole 20 Mg/10 Ml Susp.Recon) 20 mg G-TUBE DAILY@0630 [facility] Last Admin: 04/27/22 05:53 Dose: 20 mg Documented By: JENNIFER Pharmacy Consult (Consult Rx Perform Med Rec) 1 each MISCELLANE ONCE PRN PRN Reason: Consult order Polyethylene Glycol (Polyethylene Glycol 3350 17 Gm Powd.Pack) 17 gm G-TUBE DAILY [facility] Last Admin: 04/27/22 07:49 Dose: Not Given Documented By: SANDRINE Non-Admin Reason: diarrhea Sodium Chloride (0.9 % Sodium Chloride Flush 3 Ml Syringe) 3 ml IVFLUSH QSHIFT [facility] Last Admin: 04/27/22 07:19 Dose: Not Given Documented By: SANDRINE Non-Admin Reason: IV Running Vitamin D (Cholecalciferol (Vitamin D3) 25 Mcg Tablet) 25 mcg G-TUBE TID [facility] Last Admin: 04/27/22 09:35 Dose: 25 mcg Documented By: SANDRINE Labs 04/26/22 05:34 04/27/22 05:25 Labs: Laboratory Results - last 24 hr 04/26/22 04/26/22 04/27/22 09:24 11:36 05:25 Anion Gap 18 Estim Creat Clear Calc 77.6 Estimated GFR > 60 Random Glucose 104 Calcium 9.2 D Triglycerides 116 COVID-19 ([facility]) Negative COVID-19 Clin Com See Note Assessment and Plan (1) Nephrolithiasis: Status: Acute (2) Ureteral stent present: Status: Acute Plan 26-year-old male with a PMH significant for cerebral palsy, paraplegia, chronic tachycardia, and seizure disorder?who presents to the ED with fever and vomiting. Patient is completely dependent and nonverbal at baseline. Pt tested positive for UTI and found to have sodium of 152. Pt will be admitted to the hospital for treatment and further evaluation left UTI and hypernatremia. UTI Unclear etiology, patient wears brief, no indwelling catheter, ?renal calculi Ceftriaxone 1g qd, day 2 Follow cultures Elevated lipase Etiology unclear, CT clear for gallbladder thickening IVF Follow labs Hypernatremia d/t dehydration Likely secondary to dehydration d/t vomiting IVF: D5 1/2 normal saline repeat later Follow labs Renal calculi CT shows evidence of multiple nonobstructing renal calculi and 5 mm stone in distal left ureter, stably positioned. No hydronephrosis Uro consult Tachycardia--stable, 101 Diet tube feed per regimen Full Code Attending:?Dr. Lyman DVT Prophylaxis: Lovenox Neep for inpatient: complicated UTI Time Spent With Patient Time: Total time managing care of this patient today ____ minutes. Quality Stroke Does the patient have a stroke diagnosis?: No VTE Prior VTE?: No VTE Risk Level:: Medical - moderate - high VTE Device Contraindication: Treatment Not Indicated VTE Drug Contraindication: N/A - Med Ordered
--- NOTE | 2022-04-27 10:30 | MHC.CLN ---
NUTRITION DISCUSSED PATIENT'S TUBE FEED ORDER WITH MOTHER. FORMULA IS KETOVIE 3:1 THAT FAMILY PROVIDES. EACH CONTAINER IS 250 ML. USES 7 PER DAY. PROVIDES 1750 ML FORMULA; 1820 KCALS (52.3 KCALS/KG); 49 G PROTEIN (1.41 G/KG); FREE WATER FROM FORMULA 1488 ML (42.8 ML/KG). FAMILY FLUSHES WITH 20 ML WATER AFTER EACH FEEDING. USUAL FEEDING PATTERN IS: START NOCTURNAL FEED AT 9 PM. USES 4 CONTAINERS (1000ML) AT 120 ML PER HOUR. RUN TIME IS APPROXIMATELY 8.5 HOURS. FAMILY GIVES ADDITIONAL FEEDS OF ONE CONTAINER 3 TIMES PER DAY VIA PUMP AT 9 AM, 12 PM, AND 4 PM. REPORTS THAT HAS HX OF VOMITING WITH BOLUS FEEDING. CURRENT TUBE FEED ORDER REFLECTS USUAL FEEDING PATTERN PLUS WATER FLUSHES 120 ML Q 4 HOURS. FREE WATER FROM FORMULA PLUS KGLTSBI=4997 ML (63.4 ML/KG). CURRENT LABS WITH ELEVATED LIPASE (718) AND SODIUM (147). FORMULA IS A HIGH FAT, KETOGENIC FORMULA. CURRENT WEIGHT=34.8 KG; BMI=15.0, UNDERWEIGHT.
[2022-04-27 11:00] VITALS: BMI 15.0
--- NOTE | 2022-04-27 14:47 | MHC.CM.PN ---
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
[2022-04-27 15:23] VITALS: BP 123/64; PULSE 110; RESP 18; TEMP 36.4; O2SAT 97
[2022-04-27] MEDS: Enoxaparin Sodium 40 MG/0.4 ML SYRINGE SUBCUT (16:34)
--- NOTE | 2022-04-27 18:06 | PC.NURSE ---
Pt tube feeding order clarified with licensed direct entry midwife and family. Pt received and tolerated 3 240ml bolus feedings today at 0900, 1200. and 1600, with q4 water flushes. No vomiting. Minimal residual aspirated, 0900 and 1600 <10ml, 1200 about 90ml.
[2022-04-27] MEDS: Melatonin 3 MG TABLET 1.5 MG PO (19:43)
[2022-04-27 19:55] VITALS: BP 124/76; PULSE 107; RESP 20; TEMP 36.6; O2SAT 96
[2022-04-28 04:00] VITALS: BP 117/67; PULSE 107; RESP 16; TEMP 36.3; O2SAT 94
[2022-04-28] MEDS: Dextrose 5 % and 0.45 % NaCl 1,000 ML 100 ML IVCONT (05:16)
[2022-04-28 07:15] VITALS: BP 128/62; PULSE 99; RESP 16; TEMP 36.6; O2SAT 95
[2022-04-28] MEDS: polyethylene glycoL 3350 17 GM POWD.PACK G-TUBE (09:31)
[2022-04-28] MEDS: cefTRIAXone sodium 1 GM in 0.9 % Sodium Chloride 50 ML IV (09:31)
[2022-04-28] MEDS: Cholecalciferol (Vitamin D3) 25 MCG TABLET G-TUBE ×3 (09:31→19:51)
--- NOTE | 2022-04-28 10:02 | HO.PM.IMPN ---
Subjective Subjective Date of Service: 04/28/22 Interval History: Non verbal, appear comfortable Physical Exam Vital Signs: Vital Signs: Last Vital Signs Temp 98 F 04/28/22 07:15 Pulse 99 04/28/22 07:15 Resp 16 04/28/22 07:15 BP 128/62 04/28/22 07:15 Pulse Ox 95 04/28/22 07:15 O2 Del Method 04/28/22 07:15 BMI result Body Mass Index 15.0 Const: Other: General: non verbal, comfortable Resp: CTA bilateral CVS: S1,S2,RRR GI: +BS, NT, no distention Skin: No rash Neuro: motor grossly intact Psych: appropriate affect Objective Data Active Medications Enoxaparin Sodium (Enoxaparin Sodium 40 Mg/0.4 Ml Syringe) 40 mg SUBCUT Q24H [facility] Last Admin: 04/27/22 16:34 Dose: 40 mg Documented By: SANDRINE Dextrose/Sodium Chloride (D51/2ns) 1,000 mls @ 100 mls/hr IVCONT .Q10H [facility] Last Admin: 04/28/22 05:16 Dose: 100 mls/hr Documented By: LIYAH Ceftriaxone Sodium 1 gm/ (Sodium Chloride) 50 mls @ 100 mls/hr IV Q24H [facility] Last Admin: 04/28/22 09:31 Dose: 100 mls/hr Documented By: CINDY Melatonin (Melatonin 3 Mg Tablet) 1.5 mg PO BEDTIME [facility] Last Admin: 04/27/22 19:43 Dose: 1.5 mg Documented By: LIYAH Non-Formulary Medication (Puylumjb-Rnbarrxmqt-Eyis-Citac) 1 packet G-TUBE BID [facility] Non-Formulary Medication (Baclofen) 80 mcg INTRATHECA DAILY [facility] Last Admin: 04/28/22 09:47 Dose: Not Given Documented By: CINDY Non-Admin Reason: Pt Bolus automatic Omeprazole (Omeprazole 20 Mg/10 Ml Susp.Recon) 20 mg G-TUBE DAILY@0630 [facility] Last Admin: 04/28/22 05:18 Dose: 20 mg Documented By: LIYAH Pharmacy Consult (Consult Rx Perform Med Rec) 1 each MISCELLANE ONCE PRN PRN Reason: Consult order Polyethylene Glycol (Polyethylene Glycol 3350 17 Gm Powd.Pack) 17 gm G-TUBE DAILY [facility] Last Admin: 04/28/22 09:31 Dose: 17 gm Documented By: CINDY Sodium Chloride (0.9 % Sodium Chloride Flush 3 Ml Syringe) 3 ml IVFLUSH QSHIFT [facility] Last Admin: 04/28/22 09:46 Dose: Not Given Documented By: CINDY Non-Admin Reason: IV Running Vitamin D (Cholecalciferol (Vitamin D3) 25 Mcg Tablet) 25 mcg G-TUBE TID [facility] Last Admin: 04/28/22 09:31 Dose: 25 mcg Documented By: CINDY Labs 04/26/22 05:34 04/27/22 05:25 Microbiology Microbiology Results: Microbiology 04/26/22 Unknown Urine Culture - Preliminary Urine Catheterized - Straight Catheter No growth to date. Assessment and Plan (1) Nephrolithiasis: Status: Acute (2) Ureteral stent present: Status: Acute Plan 26-year-old male with a PMH significant for cerebral palsy, paraplegia, chronic tachycardia, and seizure disorder?who presents to the ED with fever and vomiting. Patient is completely dependent and nonverbal at baseline. Pt tested positive for UTI and found to have sodium of 152. Pt will be admitted to the hospital for treatment and further evaluation left UTI and hypernatremia. UTI Unclear etiology, patient wears brief, no indwelling catheter, ?renal calculi Ceftriaxone 1g qd, day 3 culture so far coag neg staph 1/2 in blood Elevated lipase Etiology unclear, CT clear for gallbladder thickening IVF Follow labs Hypernatremia d/t dehydration Likely secondary to dehydration d/t vomiting IVF: D5 1/2 normal saline repeat later Follow labs Renal calculi CT shows evidence of multiple nonobstructing renal calculi and 5 mm stone in distal left ureter, stably positioned. No hydronephrosis Uro consult: Plan Cysto Left ureteroscopy possible laser litho left ureteral stone, stent exchange on Monday 05/01 Tachycardia--stable, 101 Diet tube feed per regimen Full Code Attending:?Dr. Lyman DVT Prophylaxis: Lovenox Neep for inpatient: complicated UTI Time Spent With Patient Time: Total time managing care of this patient today ____ minutes. Quality Stroke Does the patient have a stroke diagnosis?: No VTE Prior VTE?: No VTE Risk Level:: Medical - moderate - high VTE Device Contraindication: Treatment Not Indicated VTE Drug Contraindication: N/A - Med Ordered
[2022-04-28 11:13] LABS: Anion Gap 15 (12-20); Blood Urea Nitrogen 10 mg/dL (9-16); Calcium 9.4 mg/dL (8.4-10.2); Carbon Dioxide 24 mmol/L (22-29); Chloride 109 mmol/L (96-108); Creatinine Clr Calc Pharmacy 96.6; Estimated Glomerular Filt Rate > 60; Glucose Random 87 mg/dL (60-115); Potassium 5.3 mmol/L (3.3-5.1); Sodium 143 mmol/L (135-145)
[2022-04-28 15:15] VITALS: BP 132/64; PULSE 72; RESP 18; TEMP 36.6; O2SAT 95
[2022-04-28] MEDS: Enoxaparin Sodium 40 MG/0.4 ML SYRINGE SUBCUT (15:28)
[2022-04-28] MEDS: Melatonin 3 MG TABLET 1.5 MG PO (19:51)
[2022-04-28 20:00] VITALS: BP 129/60; PULSE 112; RESP 20; TEMP 36; O2SAT 96
[2022-04-28] MEDS: 0.9 % Sodium Chloride Flush 3 ML SYRINGE IVFLUSH (20:03)
[2022-04-29 04:00] VITALS: BP 143/81; PULSE 104; RESP 18; TEMP 36.3; O2SAT 97
[2022-04-29 07:29] VITALS: BP 120/66; PULSE 107; RESP 18; TEMP 36.5; O2SAT 97
[2022-04-29] MEDS: cefTRIAXone sodium 1 GM in 0.9 % Sodium Chloride 50 ML IV (07:38)
[2022-04-29] MEDS: Cholecalciferol (Vitamin D3) 25 MCG TABLET G-TUBE ×3 (07:38→19:27)
[2022-04-29] MEDS: 0.9 % Sodium Chloride Flush 3 ML SYRINGE IVFLUSH ×3 (07:38→19:26)
--- NOTE | 2022-04-29 08:24 | HO.PM.IMPN ---
Subjective Subjective Date of Service: 04/29/22 Interval History: Non verbal, appear comfortable, no new issues Physical Exam Vital Signs: Vital Signs: Last Vital Signs Temp 97.7 F 04/29/22 07:29 Pulse 107 H 04/29/22 07:29 Resp 18 04/29/22 07:29 BP 120/66 04/29/22 07:29 Pulse Ox 97 04/29/22 07:29 O2 Del Method 04/29/22 07:29 BMI result Body Mass Index 15.0 Const: Other: General: non verbal, comfortable Resp: CTA bilateral CVS: S1,S2,RRR GI: +BS, NT, no distention Skin: No rash Neuro: No changes Psych:flat Objective Data Active Medications Enoxaparin Sodium (Enoxaparin Sodium 40 Mg/0.4 Ml Syringe) 40 mg SUBCUT Q24H [facility] Last Admin: 04/28/22 15:28 Dose: 40 mg Documented By: CINDY Ceftriaxone Sodium 1 gm/ (Sodium Chloride) 50 mls @ 100 mls/hr IV Q24H [facility] Last Infusion: 04/29/22 08:24 Dose: 0 mls/hr Documented By: SIOMARA Melatonin (Melatonin 3 Mg Tablet) 1.5 mg PO BEDTIME [facility] Last Admin: 04/28/22 19:51 Dose: 1.5 mg Documented By: LIYAH Non-Formulary Medication (Rrmbskzz-Ffehsgnjsg-Vlce-Citac) 1 packet G-TUBE BID [facility] Non-Formulary Medication (Baclofen) 80 mcg INTRATHECA DAILY [facility] Last Admin: 04/29/22 07:37 Dose: Not Given Documented By: SIOMARA Non-Admin Reason: pump. Administered automatically Omeprazole (Omeprazole 20 Mg/10 Ml Susp.Recon) 20 mg G-TUBE DAILY@0630 [facility] Last Admin: 04/29/22 05:39 Dose: 20 mg Documented By: LIYAH Pharmacy Consult (Consult Rx Perform Med Rec) 1 each MISCELLANE ONCE PRN PRN Reason: Consult order Polyethylene Glycol (Polyethylene Glycol 3350 17 Gm Powd.Pack) 17 gm G-TUBE DAILY [facility] Last Admin: 04/29/22 07:51 Dose: Not Given Documented By: SIOMARA Non-Admin Reason: diarrhea Sodium Chloride (0.9 % Sodium Chloride Flush 3 Ml Syringe) 3 ml IVFLUSH QSHIFT [facility] Last Admin: 04/29/22 07:38 Dose: 3 ml Documented By: SIOMARA Vitamin D (Cholecalciferol (Vitamin D3) 25 Mcg Tablet) 25 mcg G-TUBE TID [facility] Last Admin: 04/29/22 07:38 Dose: 25 mcg Documented By: SIOMARA Labs 04/26/22 05:34 04/28/22 10:31 Labs: Laboratory Results - last 24 hr 04/28/22 10:31 Anion Gap 15 Estim Creat Clear Calc 96.6 Estimated GFR > 60 Random Glucose 87 Calcium 9.4 Microbiology Microbiology Results: Microbiology 04/26/22 Unknown Urine Culture - Final Urine Catheterized - Straight Catheter No growth. Assessment and Plan (1) Nephrolithiasis: Status: Acute Plan 26-year-old male with a PMH significant for cerebral palsy, paraplegia, chronic tachycardia, and seizure disorder?who presents to the ED with fever and vomiting. Patient is completely dependent and nonverbal at baseline. Pt tested positive for UTI and found to have sodium of 152. Pt will be admitted to the hospital for treatment and further evaluation left UTI and hypernatremia. UTI Unclear etiology, patient wears brief, no indwelling catheter, ?renal calculi Ceftriaxone 1g qd, day 4 culture so far coag neg staph 1/2 in blood--likely contamination. Elevated lipase Etiology unclear, CT clear for gallbladder thickening IVF Follow labs Hypernatremia d/t dehydration--resolved. Likely secondary to dehydration d/t vomiting IVF: D5 1/2 normal saline Follow labs Renal calculi CT shows evidence of multiple nonobstructing renal calculi and 5 mm stone in distal left ureter, stably positioned. No hydronephrosis Uro consult: Plan Cysto Left ureteroscopy possible laser litho left ureteral stone, stent exchange on Monday 05/01 Tachycardia--stable, 101 Diet tube feed per regimen Full Code Attending:?Dr. Lyman DVT Prophylaxis: Lovenox Neep for inpatient: complicated UTI Time Spent With Patient Time: Total time managing care of this patient today ____ minutes. Quality Stroke Does the patient have a stroke diagnosis?: No VTE Prior VTE?: No VTE Risk Level:: Medical - moderate - high VTE Device Contraindication: Treatment Not Indicated VTE Drug Contraindication: N/A - Med Ordered
[2022-04-29 09:25] LABS: Anion Gap 13 (12-20); Blood Urea Nitrogen 7 mg/dL (9-16); Calcium 9.3 mg/dL (8.4-10.2); Carbon Dioxide 22 mmol/L (22-29); Chloride 108 mmol/L (96-108); Creatinine Clr Calc Pharmacy 96.6; Estimated Glomerular Filt Rate > 60; Glucose Random 92 mg/dL (60-115); Potassium 5.1 mmol/L (3.3-5.1); Sodium 138 mmol/L (135-145)
[2022-04-29] MEDS: Enoxaparin Sodium 40 MG/0.4 ML SYRINGE SUBCUT (14:43)
[2022-04-29] MEDS: Melatonin 3 MG TABLET 1.5 MG PO (19:27)
[2022-04-29 19:55] VITALS: BP 133/73; PULSE 122; RESP 18; TEMP 37; O2SAT 97
[2022-04-30 03:13] VITALS: BP 111/60; PULSE 65; RESP 17; TEMP 36.1; O2SAT 96
[2022-04-30 07:14] VITALS: BP 134/72; PULSE 72; RESP 18; TEMP 36.6; O2SAT 94
--- NOTE | 2022-04-30 07:59 | PM.UROPN ---
Subjective Subjective Date of Service: 05/01/22 Patient reports: other (nonverbal) Interval history: 26-year-old male with a PMH significant for cerebral palsy, paraplegia, chronic tachycardia, and seizure disorder?who lives at home with his Mother, presented to the ED with fever and vomiting. Patient is? nonverbal at baseline. H/O nephrolithiasa, admission in December for UTI and left hydronephrosis secondary to left ureteral stone s/p ureteral stent on 01/07/22. ? Patient also with symptoms of? fever. In the ED patient was afebrile but tachycardic to 143. Labs were significant for WBC WNL, creatinine of 0.85,? elevated BUN of 34, .? UA >20 RBC's, 20-30 WBC's, nitrite negative, urine c/s pending. Pertinent CT findings: 04/26/22 KIDNEYS AND URETERS: The kidneys are normal in size, shape, and attenuation. A left nephroureteral stent has been placed with resolution of the previously seen hydroureter and pelvocaliectasis. The 5 mm stone in the distal left ureter is stably positioned, Bilateral nonobstructive intrarenal calculiNo perinephric stranding. ? Physical Exam Vital Signs: Vital Signs: Last Vital Signs Temp 98 F 04/30/22 07:14 Pulse 72 04/30/22 07:14 Resp 18 04/30/22 07:14 BP 134/72 04/30/22 07:14 Pulse Ox 94 04/30/22 07:14 O2 Del Method 04/30/22 07:14 BMI result Body Mass Index 15.0 Const: General: no acute distress HEENT: Head: Yes atraumatic Eyes: Conjunctivae: conjunctivae normal Neck: Neck: Yes normal visual inspection Chest: Chest palpation & inspection: normal inspection of the chest Resp: Effort & Inspection: normal respiratory effort Cardio: Jugular venous distension: no JVD GI: Other: baclofen pump in place, peg tube Inspection: Yes normal to inspection Palpation (GI): Soft to palpation : Other: [place] cath in place, no scrotal swelling Penis: normal penis Skin: General skin exam: no rashes or lesions noted Extrem: Other: + contractures of lower extremities General: No pedal edema Psych: Other: nonverbal Urology Results Labs 04/26/22 05:34 04/29/22 08:51 Labs: Laboratory Results - last 24 hr 04/29/22 08:51 Sodium 138 Potassium 5.1 Chloride 108 Carbon Dioxide 22 Anion Gap 13 BUN 7 L Creatinine 0.57 Estim Creat Clear Calc 96.6 Estimated GFR > 60 Random Glucose 92 Calcium 9.3 Progress Note: A&P Assessment and plan (1) Nephrolithiasis: Status: Acute (2) Ureteral stent present: Status: Acute (3) Left ureteral calculus: Status: Acute (4) Acute UTI: Status: Acute (5) Obstructive uropathy: Status: Resolved (6) Hydronephrosis with renal calculous obstruction: Status: Acute (7) SILVIO (acute kidney injury): Status: Resolved Plan NPO past MN for OR Saturday cystoscopy Left ureteroscopy Time Spent With Patient Time: Total time managing care of this patient today ____ minutes. Progress Note: Quality Stroke Does the patient have a stroke diagnosis?: No
--- NOTE | 2022-04-30 08:06 | HO.PM.IMPN ---
Subjective Subjective Date of Service: 04/30/22 Interval History: Non verbal, appear comfortable, no new issues overnight for surgery tomorrow Physical Exam Vital Signs: Vital Signs: Last Vital Signs Temp 98 F 04/30/22 07:14 Pulse 72 04/30/22 07:14 Resp 18 04/30/22 07:14 BP 134/72 04/30/22 07:14 Pulse Ox 94 04/30/22 07:14 O2 Del Method 04/30/22 07:14 BMI result Body Mass Index 15.0 Const: Other: General: non verbal, comfortable Resp: CTA bilateral CVS: S1,S2,RRR GI: +BS, NT, no distention Skin: No rash Neuro: No changes Psych:flat Objective Data Active Medications Enoxaparin Sodium (Enoxaparin Sodium 40 Mg/0.4 Ml Syringe) 40 mg SUBCUT Q24H [facility] Last Admin: 04/29/22 14:43 Dose: 40 mg Documented By: SIOMARA Ceftriaxone Sodium 1 gm/ (Sodium Chloride) 50 mls @ 100 mls/hr IV Q24H [facility] Last Infusion: 04/29/22 08:24 Dose: 0 mls/hr Documented By: SIOMARA Melatonin (Melatonin 3 Mg Tablet) 1.5 mg PO BEDTIME [facility] Last Admin: 04/29/22 19:27 Dose: 1.5 mg Documented By: LIYAH Non-Formulary Medication (Ohhubsgw-Vyevzvqlso-Miny-Citac) 1 packet G-TUBE BID [facility] Non-Formulary Medication (Baclofen) 80 mcg INTRATHECA DAILY [facility] Last Admin: 04/30/22 07:30 Dose: Not Given Documented By: DAVID Non-Admin Reason: Patietn own pump, automatic Omeprazole (Omeprazole 20 Mg/10 Ml Susp.Recon) 20 mg G-TUBE DAILY@0630 [facility] Last Admin: 04/30/22 06:25 Dose: 20 mg Documented By: LIYAH Pharmacy Consult (Consult Rx Perform Med Rec) 1 each MISCELLANE ONCE PRN PRN Reason: Consult order Polyethylene Glycol (Polyethylene Glycol 3350 17 Gm Powd.Pack) 17 gm G-TUBE DAILY [facility] Last Admin: 04/29/22 07:51 Dose: Not Given Documented By: SIOMARA Non-Admin Reason: diarrhea Sodium Chloride (0.9 % Sodium Chloride Flush 3 Ml Syringe) 3 ml IVFLUSH QSHIFT [facility] Last Admin: 04/30/22 07:31 Dose: Not Given Documented By: DAVID Non-Admin Reason: No Access Vitamin D (Cholecalciferol (Vitamin D3) 25 Mcg Tablet) 25 mcg G-TUBE TID [facility] Last Admin: 04/29/22 19:27 Dose: 25 mcg Documented By: LIYAH Labs 04/26/22 05:34 04/29/22 08:51 Labs: Laboratory Results - last 24 hr 04/29/22 08:51 Anion Gap 13 Estim Creat Clear Calc 96.6 Estimated GFR > 60 Random Glucose 92 Calcium 9.3 Assessment and Plan (1) Nephrolithiasis: Status: Acute Plan 26-year-old male with a PMH significant for cerebral palsy, paraplegia, chronic tachycardia, and seizure disorder?who presents to the ED with fever and vomiting. Patient is completely dependent and nonverbal at baseline. Pt tested positive for UTI and found to have sodium of 152. Pt will be admitted to the hospital for treatment and further evaluation left UTI and hypernatremia. UTI Unclear etiology, patient wears brief, no indwelling catheter, ?renal calculi Ceftriaxone 1g qd, day 5 culture so far coag neg staph 1/2 in blood--likely contamination, urine culture no growth Elevated lipase Etiology unclear, CT clear for gallbladder thickening IVF Follow labs Hypernatremia d/t dehydration--resolved. Likely secondary to dehydration d/t vomiting IVF: D5 1/2 normal saline Follow labs Renal calculi CT shows evidence of multiple nonobstructing renal calculi and 5 mm stone in distal left ureter, stably positioned. No hydronephrosis Uro consult: Plan Cysto Left ureteroscopy possible laser litho left ureteral stone, stent exchange on Monday 05/01 Tachycardia--chronic and stablw Diet tube feed per regimen Full Code Attending:?Dr. Lyman DVT Prophylaxis: Lovenox Neep for inpatient: complicated UTI, kidney stone that will need intervention lost iv access, will get a midline Time Spent With Patient Time: Total time managing care of this patient today ____ minutes. Quality Stroke Does the patient have a stroke diagnosis?: No VTE Prior VTE?: No VTE Risk Level:: Medical - moderate - high VTE Device Contraindication: Treatment Not Indicated VTE Drug Contraindication: N/A - Med Ordered
[2022-04-30] MEDS: Cholecalciferol (Vitamin D3) 25 MCG TABLET G-TUBE ×3 (09:34→21:12)
[2022-04-30] MEDS: polyethylene glycoL 3350 17 GM POWD.PACK G-TUBE (09:34)
--- NOTE | 2022-04-30 10:19 | MHC.CLN ---
F/U NO REPORTED CONCERNS WITH CURRENT TUBE FEEDING/FLUSH. FORMULA IS KETOVIE 3:1 THAT FAMILY PROVIDES. FORMULA IS HIGH FAT, KETOGENIC FORMULA. EACH CONTAINER IS 250 ML. USES 7 PER DAY. SEE TUBE FEED ORDER. INCLUDES FLUSH 120 ML Q 4 HOURS. PROVIDES 1750 ML FORMULA; 1820 KCALS (52.3 KCALS/KG); 49 G PROTEIN (1.41 G/KG); FREE WATER FROM FORMULA 1488 ML AND FLUSH 720 IQ=910 ML (63.4 ML/KG) (42.8 ML/KG). CURRENT WEIGHT=34.8 KG; BMI=15.0, UNDERWEIGHT. SCHEDULED FOR URETEROSCOPY AND STENT EXCHANGE 05/01. CONTINUE TO FOLLOW FOR TUBE FEED TOLERANCE AND LABS.
--- NOTE | 2022-04-30 11:29 | PC.NURSE ---
Addendum entered by Myah Lemon RN 04/30/22 14:53: IV placed in Right Foot, 24gauge, however was pulled out once patient became restless shortly after. Unable to get IV antibiotics started prior to IV being removed. Original Note: No IV access. Two RN and clinical coordinator attempted with no success. Dr. Hanks made aware. Midline order placed, awaiting placement.
--- NOTE | 2022-04-30 15:44 | PC.NURSE ---
1230- Tube feeding residual 270ml prior to feeding. Residual returned. 1200 tube feeding held.
[2022-04-30 16:00] VITALS: BP 120/50; PULSE 124; RESP 20; TEMP 36.9; O2SAT 96
[2022-04-30] MEDS: Enoxaparin Sodium 40 MG/0.4 ML SYRINGE SUBCUT (18:14)
--- NOTE | 2022-04-30 18:14 | P.CONAN_ITS ---
HPI - Anesthesia Eval Consult details Narrative: Cysto, quadriplegic PMFSH Active Problems Active Problems: All Active Problems (Updated 04/27/22 @ 09:25 by Blas Rausch MD) Nephrolithiasis (Acute) Ureteral stent present (Acute) Left ureteral calculus (Acute) Hypernatremia (Acute) Vomiting (Acute) Acute pancreatitis (Acute) Acute UTI (Acute) Hydronephrosis with renal calculous obstruction (Acute) Hypercalcemia (Acute) Vitamin D deficiency (Acute) Osteoporosis (Acute) Past Medical History Medical History Cerebral palsy Hypercalcemia Osteoporosis Quadriplegia Seizure disorder Tachycardia Vitamin D deficiency Family History Family History Mother Anemia Father No problems noted. Family history of problems with anesthesia: No Surgical History Surgical History Gastrointestinal tube present History of back surgery Presence of intrathecal baclofen pump History of Problems with Anesthesia: No Social History Social History Household Members: Unknown / Unable to assess Household Members Other:: twin 3 y.o sisters, mother, grandmother Housing: Unknown / Unable to assess Housing Other:: handicap accessible Do you presently have visiting nurse or other home services: Yes ([facility]) Unable to assess alcohol history related to: Unknown Alcohol intake: never Patient Tobacco Use Status: Never used Tobacco service: No Current occupational status: disabled Meds Allergies Allergy/AdvReac Type Severity Reaction Status Date / Time amoxicillin [AMOXICILLIN] Allergy Unknown RASH Verified 03/01/21 13:06 Active Medications: Current Medications Enoxaparin Sodium (Enoxaparin Sodium 40 Mg/0.4 Ml Syringe) 40 mg SUBCUT Q24H SORIN Last Admin: 04/29/22 14:43 Dose: 40 mg Ceftriaxone Sodium 1 gm/ (Sodium Chloride) 50 mls @ 100 mls/hr IV Q24H SORIN Melatonin (Melatonin 3 Mg Tablet) 1.5 mg PO BEDTIME SORIN Last Admin: 04/29/22 19:27 Dose: 1.5 mg Non-Formulary Medication (Dtcxkoxv-Mscsitmdav-Elwi-Citac) 1 packet G-TUBE BID SORIN Non-Formulary Medication (Baclofen) 80 mcg INTRATHECA DAILY [facility] Last Admin: 04/30/22 07:30 Dose: Not Given Omeprazole (Omeprazole 20 Mg/10 Ml Susp.Recon) 20 mg G-TUBE DAILY@0630 [facility] Last Admin: 04/30/22 06:25 Dose: 20 mg Pharmacy Consult (Consult Rx Perform Med Rec) 1 each MISCELLANE ONCE PRN PRN Reason: Consult order Polyethylene Glycol (Polyethylene Glycol 3350 17 Gm Powd.Pack) 17 gm G-TUBE DAILY [facility] Last Admin: 04/30/22 09:34 Dose: 17 gm Sodium Chloride (0.9 % Sodium Chloride Flush 3 Ml Syringe) 3 ml IVFLUSH QSHIFT [facility] Last Admin: 04/30/22 07:31 Dose: Not Given Vitamin D (Cholecalciferol (Vitamin D3) 25 Mcg Tablet) 25 mcg G-TUBE TID [facility] Last Admin: 04/30/22 09:34 Dose: 25 mcg Home Medications Medication Instructions Recorded Confirmed Last Taken Type KetoVie See Rx Instructions .Route .COMPLEX 01/18/21 04/26/22 04/25/22 History baclofen 500 mcg/mL intrathecal See Rx Instructions .Route .COMPLEX 01/18/21 04/26/22 04/25/22 History solution cholecalciferol (vitamin D3) 25 25 mcg feeding tube TID 01/18/21 04/26/22 04/25/22 History mcg (1,000 unit) tablet (Vitamin D3) diazepam 10 mg rectal kit 5 mg SD DAILY PRN Seizures 01/18/21 04/26/22 01/05/22 History melatonin 1 mg tablet 1 mg feeding tube BEDTIME 01/18/21 04/26/22 04/25/22 History multivitamin 1 tab feeding tube DAILY 01/18/21 04/26/22 04/25/22 History polyethylene glycol 3350 17 17 g feeding tube DAILY 01/18/21 04/26/22 04/25/22 History gram/dose oral powder omeprazole 20 mg capsule,delayed 20 mg feeding tube DAILY@0630 01/06/22 04/26/22 04/25/22 History release gukoccsh-hwtixgbqlz-cxbw-citAc 1 packet PO BID 04/26/22 04/26/22 04/25/22 History oral packet Exam Exam Date and Time: April 30, 20221813 Height,Weight and Vital Signs: Height 5 ft Weight 34.8 kg Last Vital Signs Temp 98.5 F 04/30/22 16:00 Pulse 124 H 04/30/22 16:00 Resp 20 04/30/22 16:00 BP 120/50 L 04/30/22 16:00 Pulse Ox 96 04/30/22 16:00 O2 Del Method 04/30/22 16:00 Pertinent Lab Results Pertinent Lab Results: Laboratory Tests 04/26/22 04/26/22 04/26/22 05:34 07:16 09:24 WBC 8.1 RBC 5.41 D Hgb 15.4 D Hct 48.2 D MCV 89.1 MCH 28.5 MCHC 32.0 RDW 14.4 Plt Count 273 MPV 10.9 Immature Gran % (Auto) 0.4 Neut % (Auto) 58.9 Lymph % (Auto) 25.0 Archer % (Auto) 12.7 H Eos % (Auto) 2.4 Baso % (Auto) 0.6 Lymph # (Auto) 2.0 Archer # (Auto) 1.0 Eos # (Auto) 0.2 Baso # (Auto) 0.1 Abs Immat Gran (auto) 0.03 Absolute Neuts (auto) 4.8 Absolute Nucleated RBC 0.000 Nucleated RBC % (auto) 0.0 Sodium 152 H Potassium 4.4 Chloride 102 Carbon Dioxide 28 Anion Gap 26 H BUN 34 H Creatinine 0.85 Estim Creat Clear Calc 64.8 Estimated GFR > 60 Random Glucose 80 Calcium 10.6 H Total Bilirubin 0.2 AST 16 ALT 10 Alkaline Phosphatase 52 Total Protein 6.4 L Albumin 3.7 Triglycerides 116 Lipase 718 H Urine Color Yellow Urine Appearance Cloudy Urine pH 7.0 Ur Specific [place] 1.020 Urine Protein 30 (1+) H Urine Glucose (UA) Negative Urine Ketones 80 Urine Blood Large (3+) H Urine Nitrite Negative Ur Leukocyte Esterase Moderate (2+) H Urine RBC >20 H Urine WBC 21-50 H Ur Squamous Epith Cells 0-2 Urine Bacteria None Seen Hyaline Casts 3-5 COVID-19 (MANN) COVID-19 Clin Com 04/26/22 04/27/22 04/28/22 11:36 05:25 10:31 WBC RBC Hgb Hct MCV MCH MCHC RDW Plt Count MPV Immature Gran % (Auto) Neut % (Auto) Lymph % (Auto) Archer % (Auto) Eos % (Auto) Baso % (Auto) Lymph # (Auto) Archer # (Auto) Eos # (Auto) Baso # (Auto) Abs Immat Gran (auto) Absolute Neuts (auto) Absolute Nucleated RBC Nucleated RBC % (auto) Sodium 147 H 143 Potassium 4.3 5.3 H D Chloride 103 109 H Carbon Dioxide 30 H 24 Anion Gap 18 15 BUN 26 H 10 Creatinine 0.71 0.57 Estim Creat Clear Calc 77.6 96.6 Estimated GFR > 60 > 60 Random Glucose 104 87 Calcium 9.2 D 9.4 Total Bilirubin AST ALT Alkaline Phosphatase Total Protein Albumin Triglycerides Lipase Urine Color Urine Appearance Urine pH Ur Specific [place] Urine Protein Urine Glucose (UA) Urine Ketones Urine Blood Urine Nitrite Ur Leukocyte Esterase Urine RBC Urine WBC Ur Squamous Epith Cells Urine Bacteria Hyaline Casts COVID-19 (MANN) Negative COVID-19 Clin Com See Note 04/29/22 08:51 WBC RBC Hgb Hct MCV MCH MCHC RDW Plt Count MPV Immature Gran % (Auto) Neut % (Auto) Lymph % (Auto) Archer % (Auto) Eos % (Auto) Baso % (Auto) Lymph # (Auto) Archer # (Auto) Eos # (Auto) Baso # (Auto) Abs Immat Gran (auto) Absolute Neuts (auto) Absolute Nucleated RBC Nucleated RBC % (auto) Sodium 138 Potassium 5.1 Chloride 108 Carbon Dioxide 22 Anion Gap 13 BUN 7 L Creatinine 0.57 Estim Creat Clear Calc 96.6 Estimated GFR > 60 Random Glucose 92 Calcium 9.3 Total Bilirubin AST ALT Alkaline Phosphatase Total Protein Albumin Triglycerides Lipase Urine Color Urine Appearance Urine pH Ur Specific [place] Urine Protein Urine Glucose (UA) Urine Ketones Urine Blood Urine Nitrite Ur Leukocyte Esterase Urine RBC Urine WBC Ur Squamous Epith Cells Urine Bacteria Hyaline Casts COVID-19 (MANN) COVID-19 Clin Com Airway Mallampati Class: II TM Dist: >3cm Neck ROM: Limited Heart: rrr Lungs: diminished Assessment and Plan Assessment Anesthesia Assessment: Anesthesia Plan Discussed and Chart Reviewed Final Anesthetic Review Family History of Problems with Anesthesia: No History of Problems with Anesthesia: No NPO: Yes ASA Class: IV Final Preanesthetic Review: No Changes in Pt Med Stat, Meds/Allgs Chart Reviewed, Consent Obtained/Reviewed and Anes Risks/Benef Reviewed Patient Risk: High Procedure Risk: Low Anesthetic Plan Anesthetic Plan: GA Disposition: Standard PACU
[2022-04-30] MEDS: 0.9 % Sodium Chloride Flush 3 ML SYRINGE IVFLUSH ×2 (18:15→21:12)
[2022-04-30] MEDS: cefTRIAXone sodium 1 GM in 0.9 % Sodium Chloride 50 ML IV (18:27)
[2022-04-30 19:47] VITALS: BP 114/62; PULSE 70; RESP 17; TEMP 36.9; O2SAT 95
[2022-04-30] MEDS: Melatonin 3 MG TABLET 1.5 MG PO (21:12)
[2022-05-01 03:21] VITALS: BP 135/81; PULSE 115; RESP 17; TEMP 36.4; O2SAT 95
[2022-05-01 06:54] VITALS: BP 150/83; PULSE 102; RESP 18; TEMP 36.9; O2SAT 97
--- NOTE | 2022-05-01 06:57 | PC.NURSE ---
IV gauge 24 to right foot was inserted on floor is patent, flushes easily
[2022-05-01 08:00] VITALS: BP 100/63; PULSE 115; RESP 18; TEMP 36.1
[2022-05-01] MEDS: 0.9 % Sodium Chloride Flush 3 ML SYRINGE IVFLUSH ×3 (08:46→21:18)
[2022-05-01 08:55] LABS: Anion Gap 18 (12-20); Blood Urea Nitrogen 12 mg/dL (9-16); Carbon Dioxide 23 mmol/L (22-29); Chloride 106 mmol/L (96-108); Creatinine Clr Calc Pharmacy 78.7; Estimated Glomerular Filt Rate > 60; Glucose Random 84 mg/dL (60-115); Potassium 4.3 mmol/L (3.3-5.1); Sodium 143 mmol/L (135-145)
[2022-05-01 09:00] LABS: Calcium 10.5 mg/dL (8.4-10.2)
--- NOTE | 2022-05-01 09:03 | P.PNIM_ITS ---
Subjective Subjective Date of Service: 05/01/22 Interval History: Non verbal, appear comfortable, no new issues overnight, Physical Exam Vital Signs: Vital Signs: Last Vital Signs Temp 97.0 F 05/01/22 08:00 Pulse 115 H 05/01/22 08:00 Resp 18 05/01/22 08:00 BP 100/63 05/01/22 08:00 Pulse Ox 97 05/01/22 06:54 O2 Del Method 05/01/22 06:54 BMI result Body Mass Index 15.0 Const: Other: General: non verbal, comfortable Resp: CTA bilateral CVS: S1,S2,RRR GI: +BS, NT, no distention Skin: No rash Neuro: No changes Psych:flat Objective Data Active Medications Enoxaparin Sodium (Enoxaparin Sodium 40 Mg/0.4 Ml Syringe) 40 mg SUBCUT Q24H [facility] Last Admin: 04/30/22 18:14 Dose: 40 mg Documented By: EVIN Ceftriaxone Sodium 1 gm/ (Sodium Chloride) 50 mls @ 100 mls/hr IV Q24H [facility] Last Infusion: 04/30/22 19:20 Dose: 0 mls/hr Documented By: EVIN Melatonin (Melatonin 3 Mg Tablet) 1.5 mg PO BEDTIME [facility] Last Admin: 04/30/22 21:12 Dose: 1.5 mg Documented By: STEPHANIE Non-Formulary Medication (Quloshtz-Kbkygzmnsp-Anbg-Citac) 1 packet G-TUBE BID [facility] Non-Formulary Medication (Baclofen) 80 mcg INTRATHECA DAILY [facility] Last Admin: 05/01/22 07:35 Dose: Not Given Documented By: TOMAS Non-Corrine Reason: Off Unit: Surgery Omeprazole (Omeprazole 20 Mg/10 Ml Susp.Recon) 20 mg G-TUBE DAILY@0630 [facility] Last Admin: 05/01/22 05:38 Dose: Not Given Documented By: STEPHANIE Non-Admin Reason: NPO Pharmacy Consult (Consult Rx Perform Med Rec) 1 each MISCELLANE ONCE PRN PRN Reason: Consult order Polyethylene Glycol (Polyethylene Glycol 3350 17 Gm Powd.Pack) 17 gm G-TUBE DAILY [facility] Last Admin: 05/01/22 07:44 Dose: Not Given Documented By: TOMAS Non-Admin Reason: NPO Sodium Chloride (0.9 % Sodium Chloride Flush 3 Ml Syringe) 3 ml IVFLUSH QSHIFT [facility] Last Admin: 05/01/22 08:46 Dose: 3 ml Documented By: JESÚS Vitamin D (Cholecalciferol (Vitamin D3) 25 Mcg Tablet) 25 mcg G-TUBE TID [facility] Last Admin: 05/01/22 07:44 Dose: Not Given Documented By: TOMAS Non-Admin Reason: NPO Labs 04/26/22 05:34 05/01/22 08:02 Labs: Laboratory Results - last 24 hr 05/01/22 08:02 Anion Gap 18 Estim Creat Clear Calc 78.7 Estimated GFR > 60 Random Glucose 84 Calcium 10.5 H D Assessment and Plan (1) Nephrolithiasis: Status: Acute Plan 26-year-old male with a PMH significant for cerebral palsy, paraplegia, chronic tachycardia, and seizure disorder?who presents to the ED with fever and vomiting. Patient is completely dependent and nonverbal at baseline. Pt tested positive for UTI and found to have sodium of 152. Pt will be admitted to the hospital for treatment and further evaluation left UTI and hypernatremia. UTI--Ceftriaxone, culture negative. Elevated lipase Etiology unclear, CT clear for gallbladder thickening IVF Follow labs Hypernatremia d/t dehydration--resolved. Renal calculi-- CT shows evidence of multiple nonobstructing renal calculi and 5 mm stone in distal left ureter, stably positioned. No hydronephrosis Uro consult: Plan Cysto Left ureteroscopy possible laser litho left ureteral stone, stent exchange on Monday 05/01.. Surgeon tried to reach out to family to get consent and could not reach anyone, I also called and the phone number is not in service. Tachycardia--chronic and stablw Diet tube feed per regimen Full Code Attending:?Dr. Lyman DVT Prophylaxis: Lovenox Neep for inpatient: complicated UTI, kidney stone that will need intervention lost iv access, will get a midline Time Spent With Patient Time: Total time managing care of this patient today ____ minutes. Quality Stroke Does the patient have a stroke diagnosis?: No VTE Prior VTE?: No VTE Risk Level:: Medical - moderate - high VTE Device Contraindication: Treatment Not Indicated VTE Drug Contraindication: N/A - Med Ordered
--- NOTE | 2022-05-01 13:07 | PM.UROPN ---
Subjective Subjective Date of Service: 05/01/22 Patient reports: no new complaints and afebrile Interval history: 26-year-old male with a PMH significant for cerebral palsy, paraplegia, chronic tachycardia, and seizure disorder?who lives at home with his Mother, presented to the ED with fever and vomiting. Patient is? nonverbal at baseline. H/O nephrolithiasa, admission in December for UTI and left hydronephrosis secondary to left ureteral stone s/p ureteral stent on 01/07/22. ? Patient treated with IV abx's, urine c/s no growth. The patient has been NPO for planned Ureteroscopy today. However the Mother is not available to give consent. Pertinent CT findings: 04/26/22 KIDNEYS AND URETERS: The kidneys are normal in size, shape, and attenuation. A left nephroureteral stent has been placed with resolution of the previously seen hydroureter and pelvocaliectasis. The 5 mm stone in the distal left ureter is stably positioned, Bilateral nonobstructive intrarenal calculiNo perinephric stranding. ? Physical Exam Vital Signs: Vital Signs: Last Vital Signs Temp 97.0 F 05/01/22 08:00 Pulse 115 H 05/01/22 08:00 Resp 18 05/01/22 08:00 BP 100/63 05/01/22 08:00 Pulse Ox 97 05/01/22 06:54 O2 Del Method 05/01/22 06:54 BMI result Body Mass Index 15.0 Urology Results Labs 04/26/22 05:34 05/01/22 08:02 Labs: Laboratory Results - last 24 hr 05/01/22 08:02 Sodium 143 Potassium 4.3 Chloride 106 Carbon Dioxide 23 Anion Gap 18 BUN 12 Creatinine 0.70 Estim Creat Clear Calc 78.7 Estimated GFR > 60 Random Glucose 84 Calcium 10.5 H D Progress Note: A&P Assessment and plan (1) Nephrolithiasis: Status: Acute (2) Ureteral stent present: Status: Acute (3) Left ureteral calculus: Status: Acute Plan The patients mother was previously informed by me regarding plan for OR today Unable to reach mother today for OR consent for procedure or anesthesia The patient is clinically stable for discharge and will plan for stone management as on outpatient Time Spent With Patient Time: Total time managing care of this patient today ____ minutes. Progress Note: Quality Stroke Does the patient have a stroke diagnosis?: No
--- NOTE | 2022-05-01 13:54 | MHC.CM.PN ---
EMR REVIEWED, PER HOSPITALIST AND NURSE HAVE BEEN UNABLE TO CONTACT PT'S MOTHER/FAMILY BOTH NUMBERS ON FILE ARE CURRENTLY NOT WORKING, CM CHEMICAL DEPENDENCY NURSE CONTACTING PT'S PCP [facility] NAME TO SEE IF THEY HAVE ADDITIONAL NUMBER ON FILE, CM WILL CONT TO FOLLOW.
[2022-05-01] MEDS: Enoxaparin Sodium 40 MG/0.4 ML SYRINGE SUBCUT (15:03)
[2022-05-01] MEDS: Cholecalciferol (Vitamin D3) 25 MCG TABLET G-TUBE ×2 (15:05→21:16)
--- NOTE | 2022-05-01 15:24 | MHC.CM.PN ---
WINSOME CONTACTED DDS NURSE JEFRY [phone] AT 3:15PM WHO REPORTED PT IS UNDER HER CASE LOAD, JEFRY GAVE THIS CM PT'S DDS PRODUCE ASSOCIATE AND [facility] COMMUNICATIONS PROJECT MANAGER. DDS SERVICE CORDINATOR: MARTIN KAHN [phone] [facility] COMMUNICATIONS PROJECT MANAGER: PINKY KIM [phone] WINSOME ATTEMPTED TO CONTACT PINKY [phone], PER PIKNY PT HAS AGED OUT F HER PROGRAM HOWEVER IS STILL ACTIVE W/[facility] AND HIS SERVICE NAVIGATOR AT [facility] IS NOW NEVA SANTANA [phone] HOWEVER IS OFF TODAY, WINSOME HAS CALLED AND LEFT MESSAGE. PINKY ALSO GAVE CM PT'S MOTHERS EMAIL AND THIS CM HAS EMAILED PT'S MOTHER AND AWAITING RESPONSE. CM WILL CONT TO FOLLOW.
[2022-05-01 15:32] VITALS: BP 118/73; PULSE 103; RESP 17; TEMP 36.6; O2SAT 96
[2022-05-01] MEDS: cefTRIAXone sodium 1 GM in 0.9 % Sodium Chloride 50 ML IV (18:16)
[2022-05-01 19:22] VITALS: BP 169/88; PULSE 100; RESP 17; TEMP 36.3; O2SAT 96
[2022-05-01] MEDS: Melatonin 3 MG TABLET 1.5 MG PO (21:16)
[2022-05-02 03:50] VITALS: BP 131/76; PULSE 120; RESP 17; TEMP 36.1; O2SAT 95
[2022-05-02 07:39] VITALS: BP 144/69; PULSE 118; RESP 18; TEMP 36.7; O2SAT 95
--- NOTE | 2022-05-02 08:53 | MHC.CM.PN ---
Addendum entered by Naa Colin RN 05/02/22 08:55: JEFRY HAS NO ADDITIONAL CONTACT INFO FOR PT'S MOTHER. Original Note: CM RECEIVED PHONE CALL FROM JEFRY DUMAS AT [employer] WHO REPORTED THEY MANAGE PT'S INTRAFECAL PUMP (BACLOFEN), JEFRY LOOKING FOR D/C DATE HIS PUMP IS SCHEDULED TO BE FILLED AGAIN ON 05/09/22, JEFRY IS REQUESTNG A CALL BACK WHEN PT DISCHARGED AT [phone].
[2022-05-02] MEDS: Cholecalciferol (Vitamin D3) 25 MCG TABLET G-TUBE (09:17)
[2022-05-02] MEDS: 0.9 % Sodium Chloride Flush 3 ML SYRINGE IVFLUSH (09:17)
[2022-05-02] MEDS: polyethylene glycoL 3350 17 GM POWD.PACK G-TUBE (09:17)
--- NOTE | 2022-05-02 09:34 | MHC.CLN ---
F/U BOLUS FEED HELD AT NOON 04/30 FOR HIGH RESIDUALS. NO OTHER REPORTED CONCERNS WITH CURRENT TUBE FEEDING/FLUSH. FORMULA IS KETOVIE 3:1 THAT FAMILY PROVIDES. FORMULA IS HIGH FAT, KETOGENIC FORMULA. EACH CONTAINER IS 250 ML. USES 7 PER DAY. SEE TUBE FEED ORDER. INCLUDES FLUSH 120 ML Q 4 HOURS. PROVIDES 1750 ML FORMULA; 1820 KCALS (52.3 KCALS/KG); 49 G PROTEIN (1.41 G/KG); FREE WATER FROM FORMULA 1488 ML AND FLUSH 720 VC=640 ML (63.4 ML/KG) (42.8 ML/KG). 05/01 URETEROSCOPY NOT DONE AND PATIENT RESUMED TF ORDER. CONTINUE TO FOLLOW FOR TUBE FEED TOLERANCE AND LABS.
--- NOTE | 2022-05-02 09:39 | PM.DS ---
DS: Providers Provider Date of Service: 05/02/22 Date of admission: 04/26/22 14:57 Primary care physician: Aneudy Balderas MD Consults: 04/26/22 16:51 Consult to Urology Routine Consulting Provider: Blas Rausch Reason for consultation: UTI, multiple nonobstructing renal calculi DS: Diagnosis Discharge Diagnosis (1) Nephrolithiasis: Status: Acute (2) Ureteral stent present: Status: Acute (3) Left ureteral calculus: Status: Acute DS: Summary Hospital Course Hospital Course: Chief Complaint: Fever, vomiting Pt is a 26-year-old male with a PMH significant for cerebral palsy, paraplegia, chronic tachycardia, and seizure disorder?who presents to the ED with fever and vomiting. Patient is completely dependent and nonverbal at baseline. HPI obtained from phone call with mother.? Mother states the patient has been experiencing vomiting for the past week, especially at night. Apparently not vomiting during the day. Pt has a history of kidney stones, last admitted in December of 2021 for an obstructing ureteral stone with stent placed.? Patient then had similar presenting symptoms of vomiting.? Patient spiked a fever last night and had elevated blood pressure of 163/101, which prompted visit to the ED. Patient is unable to communicate pain and it is difficult to determine whether not he is experiencing pain. Of note, patient has PEG tube for feeding. Pt wears a brief, no in-dwelling cather. In the ED patient was afebrile but tachycardic to 143. Labs were significant for WBC WNL, creatinine of 0.85, hypernatremia of 152, elevated BUN of 34, elevated lipase of 718.? UA was positive for UTI. CT?of abdomen and pelvis found no evidence of gallbladder wall thickening, radiopaque gallstones, or pericholecystic inflammatory changes.? CT also noted no hydronephrosis, left stent in place and 5 mm stone in distal left ureter stably positioned, and numerous nonobstructive intrarenal calculi bilaterally. EKG demonstrated sinus tachycardia without evidence ST elevations or depressions. Pt was treated with ondansetron, morphine, IVF, ceftriaxone. Pt will be admitted to the hospital for treatment and further evaluation left UTI and hypernatremia. Hospital course: UTI--treated with ceftriaxone x 7 days, will change to oral Ceftin 250 bid for 3 more days, urinne culture negative. Elevated lipase Etiology unclear, CT clear for gallbladder thickening Hypernatremia d/t dehydration--Treated with IVF and resolved. Renal calculi-- CT shows evidence of multiple nonobstructing renal calculi and 5 mm stone in distal left ureter, stably positioned. No hydronephrosis Uro consult:Plan Cysto Left ureteroscopy possible laser litho left ureteral stone, stent exchange, unfortunately patient guardian could not be reached for consent and therefore surgery will be scheduled on outpatient basis Tachycardia--chronic and stable Time Spent with Patient Time attestation: Total time managing care of this patient today ____ minutes. Discharge coordination time: Greater than 30 minutes Quality: Safe Use of Opioids Does Pt have an Active Cancer Diagnosis on the Problem List?: No Quality: Stroke Does the patient have a stroke diagnosis?: No Physical Exam Vital Signs: Vital Signs: Last Vital Signs Temp 98.1 F 05/02/22 07:39 Pulse 118 H 05/02/22 07:39 Resp 18 05/02/22 07:39 BP 144/69 H 05/02/22 07:39 Pulse Ox 95 05/02/22 07:39 O2 Del Method 05/02/22 07:39 BMI result Body Mass Index 15.0 DS: Data Data Completed and Pending Completed studies during hospitalization [Text1]: Procedures Dilation of Left Ureter with Intraluminal Device, Via Natural or Artificial Opening Endoscopic (01/06/22) Fluoroscopy of Left Kidney, Ureter and Bladder (01/06/22) Discharge Plan Discharge Anticipated Discharge Date/Time: 05/02/22 09:46 Patient Disposition: Home Health Service Discharge Diagnosis: UTI, kidney stone, hydronephrosis Referrals: Name,MD Aneudy [Primary Care Provider] - 1 Week Discharge Medications: New cefuroxime axetil 250 mg tablet 250 mg feeding tube BID Qty: 8 0RF Continued multivitamin Tablet 1 tab feeding tube DAILY baclofen 500 mcg/mL Solution See Rx Instructions .ROUTE .COMPLEX Rx Instructions: iv continuous diazepam 10 mg Kit [address] DAILY PRN (Reason: Seizures) polyethylene glycol 3350 17 gram/dose Powder 17 g feeding tube DAILY melatonin 1 mg Tablet 1 mg feeding tube BEDTIME cholecalciferol (vitamin D3) [Vitamin D3] 25 mcg (1,000 unit) Tablet 25 mcg feeding tube TID KetoVie See Rx Instructions .ROUTE .COMPLEX Rx Instructions: Patient has his own omeprazole 20 mg Capsule,Delayed Release(Dr/Ec) 20 mg feeding tube DAILY@0630 pwtxrvlf-iwftngpmsf-lner-citAc Packet 1 packet PO BID Discharge Orders: Discharge Order (Routine); Ordered 05/02/22 Ordered By: Abdoulaye Hanks Diet: Advance to usual diet Activity on Discharge: As tolerated Stand Alone Forms: Patient Portal Discharge page Care Plan Goals: Full recovery from kidney stone Health Concerns: recurrent UTI kidney stones Plan of Treatment: Take antibiotics (Ceftin) as recommended and follow up with Urologist for procedure to be done Assessment: as abovve Discharge Date/Time: 05/02/22 18:00
--- NOTE | 2022-05-02 11:03 | P.F2F_ITS ---
Service Date Service Date: 05/02/22 Encounter Date of encounter: 05/02/22 Reasons for Services Signs and symptoms assessed: Bedbound, cerebral palsy, recurrent UTI, kidney stone. always needs the assistance of another person Homebound: Leaving the home is medically contraindicated at this time without the asist of a device and/or another person due th the listed conditions above and below. Reason homebound: bedbound/chairbound, non-weight bearing and unable to drive Certification: Based on the above findings, I certify that this patient is confined to the home and needs intermittent penitentiary care, physical therapy and/or speech therapy, or continues to need occupational therapy. The patient is under my care, and I have initiated the establishment of the plan of care. The patient will be followed by a physician who will periodically review the plan of care. Time Spent With Patient Time: Total time managing care of this patient today ____ minutes.
--- NOTE | 2022-05-02 13:30 | MHC.CM.PN ---
CM RECEIVED A CALL BACK FROM PT'S SITER EVELYN, JULIA DISCUSSED, EVELYN REPORTS SHE HAS JUST RETURNED FROM WORK AFTER A 6WK FMLA AND IS UNABLE TO COME UP TO STAY W/PT AND IS PROBABLY THE FAMILY MEMBER WHO WOULD BE ABLE TO DO THAT, EVELYN DID CONFIRM PT COULD RETURN HOME AND CM ASKED IF THERE WAS A FAMILY MEMBER WHO COULD COME AND TRAVEL BACK W/PT, EVELYN REPORTS SHE WILL SPEAK W/FAMILY MEMBERS TONJAN TO SEE IF THEY'RE IS ARE OTHER OPTIONS AND CALL CM BACK TOMORROW 05/03. CM ALSO MET WITH PT WHO REPORTS HE WOULD LIKE TO RETURN HOME W/FAMILY AND CM WILL FOLLOW UP W/PT AFTER SPEAKING EVELYN.
[2022-05-02 15:41] VITALS: BP 123/71; PULSE 125; RESP 17; TEMP 36.2; O2SAT 95
--- NOTE | 2022-05-02 16:16 | MHC.CM.PN ---
CM CONTACTED PT'S MOTHER NAYANA AT 4:10PM NO ONE HAD SHOWED UP TO PROGRAM CHECKER PT AND SHE REPORTS THEY JUST GOT BACK FROM [facility] AND REPORTS HIS DAD IS ON THE WAY TO PROGRAM CHECKER PT.
--- NOTE | 2022-05-03 12:54 | MHC.CM.PN ---
Post d/c note, cm attempted to secure vna for sn however vna's reporting and hospitalist in agreement there is no skill for pt however [facility] is willing to speak w/DDS nurse Taty to discuss case, micki caontacted Taty at 12:50pm and was given Fritz's contact number at [facility].
== END 2022-05-02 18:00 | disposition home health service (06) | DRG 463 ==
LOC: HO.ED 10:59 → HO.EDOVER 15:11 → HO.S3 17:44
PROVIDERS: Internal Medicine; Admitting Provider Student in an Organized Health Care Education/Training Program; Emergency Provider Emergency Medicine; PCP Internal Medicine Geriatric Medicine; Visit Provider Internal Medicine
DX: N39.0 Urinary tract infection, site not specified (principal); E87.0 Hyperosmolality and hypernatremia; G80.8 Other cerebral palsy; N20.2 Calculus of kidney with calculus of ureter; E86.0 Dehydration; R00.0 Tachycardia, unspecified; G40.909 Epilepsy, unspecified, not intractable, without status epilepticus; Z93.1 Gastrostomy status; Z97.8 Presence of other specified devices; Z20.822 Contact with and (suspected) exposure to COVID-19; Z88.0 Allergy status to penicillin; Z79.899 Other long term (current) drug therapy
CPT/HCPCS: 36415; 74176; 80048; 80053; 81001; 83690; 84478; 85025; 87086; 87635; 93005; 99285; J0690; J0696; J1650; J2270; J2405; Q9967

== ENCOUNTER 2022-05-15 06:57 | Day surgery (SDC) | payer MEDICAID, SELFPAY ==
[2022-05-11 10:37] VITALS: BMI 17.6
[2022-05-15] VITALS (8 sets, daily range): BP systolic 109–126; BP diastolic 70–86; PULSE 102–134; RESP 16–20; TEMP 36.2–36.6; O2SAT 96–99
--- NOTE | ~2022-05-15 | FL_ITS ---
EXAMINATION: XR FLUOROSCOPY WITH IMAGES CLINICAL INFORMATION: Urinary tract calculi. Cystoscopy, ureteroscopy, retrograde, laser with stent. COMPARISON: CT abdomen and pelvis 04/26/2022 TECHNIQUE: Fluoroscopy Supervised By: Dr. Rausch. Fluoroscopy Time: 18 seconds. Cumulative Dose: 2.47 mGy. Images: 2. FINDINGS: There is catheter and guide wire overlying left renal fossa and left ureter. Some faint calculi are noted overlying the left renal fossa. There is a generator device again noted overlying the right lower quadrant. FL/FL guidance in OR IMPRESSION: Fluoroscopy for urologic procedures.
[2022-05-15] MEDS: Lactated Ringers 1,000 ML 80 ML IVCONT (08:35)
--- NOTE | 2022-05-15 08:58 | MHC.SHP ---
Pre-Procedural Eval Section A Date of Service: 05/15/22 The patient is an INPATIENT: No Section B Chief Complaint: Calculus of kidney Allergies: Allergies Allergy/AdvReac Type Severity Reaction Status Date / Time amoxicillin [AMOXICILLIN] Allergy Severe RASH Verified 05/15/22 08:10 Plan Diagnosis/Plan: Unchanged I have reviewed the history and physical and performed a pertinent physical examination on my patient. No changes have occurred unless specified. Plan for Cystoscopy, left ureteroscopy, possible laser lithotripsy. left ureteral stent removal versus stent exchange. Risks discussed included but not limited to, possible need to repeat procedure if stone is not completely fragmented, Irritative voiding symptoms, bladder spasms, urgency, blood in urine. Time Spent With Patient Time: Total time managing care of this patient today ____ minutes.
[2022-05-15] MEDS: Acetaminophen 1,000 MG/100 ML PIGGYBACK 400 MG IV (10:49)
--- NOTE | 2022-05-15 11:08 | W.PM.OPN ---
Operative Note Operative Note Date of Service: 05/15/22 Narrative: PreOperative Diagnosis:?? left ureteral stone status post left ureteral stent Post Operative Diagnosis:?? left ureteral stone status post left ureteral stent Procedure: - cystoscopy, left ureteroscopy, stent removal, stone extraction Surgeon:?Dr Blas Rausch Anesthesia:? General Indications for procedure: Zoltan is a 26-year-old gentleman with cerebral palsy, status post left ureteral stent in December 2021 for obstructing left ureteral stone. Also has multiple bilateral nonobstructing renal calculi. The patient did not present as outpatient for follow-up. The patient was readmitted in April 26, 2022, and is being brought in for further management of left ureteral stone. Consent was obtained from his mother who is the legal guardian. Procedure: After informed consent was verified the patient was brought to the operating room, placed on the OR table in supine position.? General Anesthesia was administered per protocol.? the patient has contracted lower extremities and was carefully placed in semi lithotomy position. padding used as appropriate. The patient was prepped and draped in the usual sterile fashion.? Safety pause time-out and side of surgery confirmed.? Antibiotics confirmed. 2% lidocaine jelly 10 mL was passed transurethrally. A 22 [place] cystoscope was inserted transurethrally, there was noted to be a flap of mucosal tissue in the the mid bulbous urethra, the 22 cystoscope was able to be passed alongside this defect without difficulty. The prostatic urethra was nonobstructive. The bladder was visualized.? Both ureteric orifices were in normal position. the left distal end of the ureteral stent extended beyond the ureteral orifice. A grasping forceps was used to grasp the distal end of the ureteral stent. Attempts to pass a guidewire through the stent was unsuccessful due to the inner lumen being calcified. The ureteral stent was removed. An open-ended ureteral catheter was passed into the Left ureteral orifice and a guidewire was passed through the ureteral catheter into the kidney. A 2nd guidewire was then passed alongside the 1st guidewire into the kidney to use as a safety. The cystoscope was removed, leaving both guidewires in place. One guidewire was used as the safety and was attached to the draping. The semi rigid ureteroscope was passed over one of the guidewires to the level of the stone in the ureter. One guidewire was then removed. The 0 degree basket was passed through the ureteroscope, The ureteroscope and the stone was removed, stone will be sent for analysis. The cystoscope was passed over the safety guidewire. The guidewire was removed. The bladder was emptied.? The rigid cystoscope was removed. ? 2% lidocaine jelly was passed transurethrally. The patient tolerated the procedure well, was brought out of general and taken to the recovery room in stable condition. Complications: None Drains: None
--- NOTE | 2022-05-15 11:51 | P.CONAN_ITS ---
HPI - Anesthesia Eval Consult details Narrative: lt kidney stone PMFSH Active Problems Active Problems: All Active Problems (Updated 05/11/22 @ 10:41 by Julianna Valencia RN) Hydronephrosis with renal calculous obstruction (Acute) Left ureteral calculus (Acute) Ureteral stent present (Acute) Nephrolithiasis (Acute) Hypercalcemia (Acute) Vitamin D deficiency (Acute) Osteoporosis (Acute) Past Medical History Medical History (Updated 05/11/22 @ 10:41 by Julianna Valencia RN) Cerebral palsy Hypercalcemia Osteoporosis Quadriplegia Seizure disorder Tachycardia Vitamin D deficiency Family History Family History Mother Anemia Father No problems noted. Family history of problems with anesthesia: No Surgical History Surgical History (Updated 05/15/22 @ 08:03 by Mattie Richardson) Gastrointestinal tube present H/O adenoidectomy History of back surgery History of testicular surgery Hx of cystoscopy Hx of tonsillectomy Presence of intrathecal baclofen pump History of Problems with Anesthesia: No Social History Social History (Updated 05/11/22 @ 10:43 by Julianna Valencia RN) Household Members: Family Household Members Other:: twin 3 y.o sisters, mother, grandmother Housing: House Housing Other:: handicap accessible Are you a primary resident care associate to a significant other at home: No Do you presently have visiting nurse or other home services: Yes Alcohol intake: never Patient Tobacco Use Status: Never used Tobacco Use of substances other than those prescribed or required for medical reasons: No Have you been hit, kicked, punched, or otherwise hurt by someone within the past year? If so, by whom?: No Advance Directives Information Provided: Yes (as above noted-will bring guardianship documents DOS) Advance Directives on File: No Recently lost weight without trying: Yes How much weight loss: 2-13 pounds Eating poorly because of decreased appetite: No Nutrition screen score: 3 Nutrition Risks: No Nutritional Risk service: No Current occupational status: disabled Meds Allergies Allergy/AdvReac Type Severity Reaction Status Date / Time amoxicillin [AMOXICILLIN] Allergy Severe RASH Verified 05/15/22 08:10 Active Medications: Current Medications Lactated Ringer's (Lr) 1,000 mls @ 80 mls/hr IVCONT .[id number] SORIN Last Admin: 05/15/22 08:35 Dose: 80 mls/hr Ondansetron HCl (Ondansetron Hcl 4 Mg/2 Ml Vial) 4 mg IVPUSH ONCE PRN PRN Reason: Nausea and Vomiting Home Medications Medication Instructions Recorded Confirmed Last Taken Type KetoVie See Rx Instructions .Route .COMPLEX 01/18/21 05/15/22 04/25/22 History baclofen 500 mcg/mL intrathecal See Rx Instructions .Route .COMPLEX 01/18/21 05/15/22 04/25/22 History solution cholecalciferol (vitamin D3) 25 25 mcg feeding tube TID 01/18/21 05/15/22 04/25/22 History mcg (1,000 unit) tablet (Vitamin D3) diazepam 10 mg rectal kit 5 mg [place] DAILY PRN Seizures 01/18/21 05/15/22 01/05/22 History melatonin 1 mg tablet 1 mg feeding tube BEDTIME 01/18/21 05/15/22 04/25/22 History multivitamin 1 tab feeding tube DAILY 01/18/21 05/15/22 04/25/22 History polyethylene glycol 3350 17 17 g feeding tube DAILY 01/18/21 05/15/22 04/25/22 History gram/dose oral powder omeprazole 20 mg capsule,delayed 20 mg feeding tube DAILY@0630 01/06/22 05/15/22 05/15/22 06:00 History release opjxhnal-rrvintotoe-mnlz-citAc 1 packet PO BID 04/26/22 05/15/22 04/25/22 History oral packet Exam Exam Date and Time: May 15, 2022 115 Height,Weight and Vital Signs: Height 5 ft Weight 40.823 kg Last Vital Signs Temp 97.1 F 05/15/22 11:31 Pulse 107 H 05/15/22 11:31 Resp 17 05/15/22 11:31 BP 120/79 05/15/22 11:31 Pulse Ox 98 05/15/22 11:31 O2 Del Method 05/15/22 11:31 Airway Mallampati Class: II TM Dist: >3cm Neck ROM: Full Heart: rr Lungs: cta Assessment and Plan Assessment Anesthesia Assessment: Anesthesia Plan Discussed and Chart Reviewed Final Anesthetic Review Family History of Problems with Anesthesia: No History of Problems with Anesthesia: No NPO: Yes ASA Class: II Final Preanesthetic Review: No Changes in Pt Med Stat, Meds/Allgs Chart Reviewed, Consent Obtained/Reviewed and Anes Risks/Benef Reviewed Patient Risk: Low Procedure Risk: Low Anesthetic Plan Anesthetic Plan: GA Disposition: Standard PACU
--- NOTE | 2022-05-15 12:14 | PC.NURSE ---
DC INSTRUCTIONS GIVEN TO PATIENT'S POA AND FAMILY MEMBER.
[2022-05-21 17:32] LABS: Stone Source LEFT URETERAL STONE
== END 2022-05-15 12:14 | disposition home or self-care (01) ==
PROVIDERS: PCP Internal Medicine; Visit Provider Urology
PROC: (CPT 52352; principal; 2022-05-15 07:30)
DX: N20.1 Calculus of ureter (principal); Z46.6 Encounter for fitting and adjustment of urinary device; Z87.442 Personal history of urinary calculi; G80.8 Other cerebral palsy; G40.909 Epilepsy, unspecified, not intractable, without status epilepticus; N13.30 Unspecified hydronephrosis; R00.0 Tachycardia, unspecified; M81.0 Age-related osteoporosis without current pathological fracture; E55.9 Vitamin D deficiency, unspecified; E83.52 Hypercalcemia; Z79.899 Other long term (current) drug therapy; Z88.1 Allergy status to other antibiotic agents
CPT/HCPCS: 52352; 82365; 88300; C1758; C1769; J0131; J0690; J1885; J2405; Q9967

== ENCOUNTER 2022-05-30 15:35 | Outpatient (REF) | payer MEDICAID, SELFPAY ==
--- NOTE | ~2022-05-30 | US_ITS ---
EXAMINATION: US RETROPERITONEAL LIMITED (RENAL ONLY) CLINICAL INFORMATION: Hydronephrosis with renal and ureteral calculus obstruction. COMPARISON: X-ray KUB 05/30/2022. CT abdomen and pelvis 04/26/2022. X-ray abdomen 01/11/2022. Renal ultrasound 03/19/2019. TECHNIQUE: Real-time imaging of the kidneys. FINDINGS: There are multiple echogenic foci bilaterally, the largest ones documented. RIGHT KIDNEY: 8.9 x 4.2 x 5.7 cm (SAG x AP x TRV). The kidney is normal in size and contour. Renal cortical thickness is normal. No focal parenchymal lesions or hydronephrosis. There is increased renal echogenicity. There are several echogenic nonobstructive stones. Three (3) lower pole stones measure 0.5 x 0.4 x 0.6 cm, 0.3 x 0.2 x 0.3 cm and 0.3 x 0.3 x 0.4 cm. Midpole stone measures 0.3 x 0.3 x 0.3 cm. There is no caliectasis. LEFT KIDNEY: 9.7 x 4.6 x 4.7 cm (SAG x AP x TRV). The kidney is normal in size and contour. Renal cortical thickness is normal. No focal parenchymal lesions or hydronephrosis. There is increased cortical echogenicity with at least 4 echogenic stones. A cluster of stones in lower pole measuring 1.1 x 0.6 x 0.9 cm, a lower pole stone measuring 0.5 x 0.3 x 0.7 cm. Midpole stone measuring 0.5 x 0.3 x 0.3 cm and upper pole echogenic stone measuring 0.3 x 0.2 x 0.3 cm. No caliectasis seen. US/US renal BI IMPRESSION: Bilateral increased cortical echogenicity. There are bilateral nonobstructive echogenic calculi. No hydronephrosis seen.
--- NOTE | ~2022-05-30 | XR_ITS ---
EXAMINATION: XR ABDOMEN KUB CLINICAL INDICATION: Hydronephrosis COMPARISON: Abdominal radiographs 12/21/20262021 TECHNIQUE: AP view of the abdomen. FINDINGS: Multiple calcifications are seen in the region of the renal pelvis, the largest on the left measuring approximately 0.9 cm and on the right measuring 0.5 cm. Previously seen left double-J stent has now been removed. There is a nonobstructive bowel gas pattern. A gastrostomy tube is noted projecting over the midline with balloon within the stomach. Bones are osteopenic. There is severe rotoscoliosis.
--- NOTE | ~2022-05-30 | XR_ITS ---
EXAMINATION: XR CHEST CLINICAL INFORMATION: Acute cough COMPARISON: None available. TECHNIQUE: 2 views of the chest. Study limited due to patient's inability to move arms. FINDINGS: No significant abnormality is noted involving the heart, lungs, mediastinum, bony thorax or soft tissues. Dextrorotoscoliosis. XR/XR chest 2V IMPRESSION: Within the limitations, no acute cardiopulmonary findings.
== END 2022-05-30 15:36 | disposition home or self-care (01) ==
LOC: HO.US 15:35
PROVIDERS: Visit Provider Urology
DX: N13.2 Hydronephrosis with renal and ureteral calculous obstruction (principal); R05.1 Acute cough; R11.10 Vomiting, unspecified; Z93.1 Gastrostomy status; Z78.9 Other specified health status; G80.8 Other cerebral palsy
CPT/HCPCS: 71046; 74018; 76775

== ENCOUNTER → 2022-06-04 15:50 | Outpatient (BNVA) | payer MEDICAID, SELFPAY | PROVIDERS: PCP Internal Medicine Geriatric Medicine; Visit Provider Urology ==

== ENCOUNTER 2022-06-25 15:40 | Outpatient (REF) | payer MEDICAID, SELFPAY ==
[2022-06-25 15:58] LABS: Appearance Urine Clear; Color Urine Yellow; Glucose Urine UA Negative (Negative); Leukocyte Esterase Urine Trace (Negative); Nitrite Urine Negative (Negative); PH 5.5 (5.0-9.0); Specific Gravity - Urine 1.015 (1.005-1.025); UMIC TRIGGER UA YES; Urine Blood Small (1+) (Negative); Urine Ketones 80 mg/dL (Negative); Urine Protein 30 (1+) mg/dL (Neg-Trace)
[2022-06-25 16:01] LABS: Bacteria Urine None Seen (None Seen); RBC Urine >20 /HPF (0-2); Squamous Epithelial Cell Urine 0-2 /HPF (0-2)
== END 2022-06-25 15:41 | disposition home or self-care (01) ==
LOC: HO.LNP 15:40
PROVIDERS: Visit Provider Urology
DX: N13.2 Hydronephrosis with renal and ureteral calculous obstruction (principal)
CPT/HCPCS: 81001; 87086

== ENCOUNTER 2022-07-04 09:29 | Day surgery (SDC) | payer MEDICAID, SELFPAY ==
[2022-06-29 13:47] VITALS: BMI 17.5
--- NOTE | 2022-07-03 10:45 | HO.ANESPROP2 ---
Documented by User: Sudha Edmondson NP 07/03/22 10:47 HPI - Anesthesia Eval Consult details Narrative: 27yo M for Right ESWL s/p cysto, etc 04/2022 with GA Cerebal palsy, quadriplegia, nonverbal PMFSH Active Problems Active Problems: All Active Problems (Updated 06/29/22 @ 13:43 by Leslie Maravilla RN) Hydronephrosis with renal calculous obstruction (Acute) Left ureteral calculus (Acute) Ureteral stent present (Acute) Nephrolithiasis (Acute) Bilateral kidney stones (Acute) Neurogenic bladder (Acute) Urinary incontinence (Acute) Hypercalcemia (Acute) Vitamin D deficiency (Acute) Osteoporosis (Acute) Past Medical History Medical History (Updated 06/29/22 @ 13:43 by Leslie Maravilla RN) Cerebral palsy G tube feedings Hypercalcemia Legally blind Osteoporosis Quadriplegia Seizure disorder Tachycardia Vitamin D deficiency Wheelchair dependent Family History Family History Mother Anemia Father No problems noted. Family history of problems with anesthesia: No Surgical History Surgical History (Updated 06/29/22 @ 13:42 by Leslie Maravilla RN) Gastrointestinal tube present H/O adenoidectomy History of back surgery History of testicular surgery Hx of cystoscopy Hx of tonsillectomy Presence of intrathecal baclofen pump History of Problems with Anesthesia: No Social History Social History Household Members: Family Household Members Other:: twin 3 y.o sisters, mother, grandmother Housing: House Housing Other:: handicap accessible Are you a primary patient care technician to a significant other at home: No Do you presently have visiting nurse or other home services: Yes Alcohol intake: never Patient Tobacco Use Status: Never used Tobacco Second Hand Smoke Exposure: No Use of substances other than those prescribed or required for medical reasons: No Are you DNR?: No Advance Directives: No Advance Directives Information Provided: Yes (mom is legally guardian, paperwork on chart) Advance Directives on File: No service: No Current occupational status: disabled Meds Allergies Allergy/AdvReac Type Severity Reaction Status Date / Time amoxicillin [AMOXICILLIN] Allergy Severe RASH Verified 06/29/22 13:44 Home Medications Medication Instructions Recorded Confirmed Last Taken Type KetoVie See Rx Instructions .Route .COMPLEX 01/18/21 05/15/22 04/25/22 History baclofen 500 mcg/mL intrathecal See Rx Instructions .Route .COMPLEX 01/18/21 05/15/22 04/25/22 History solution cholecalciferol (vitamin D3) 25 25 mcg feeding tube TID 01/18/21 06/29/22 04/25/22 History mcg (1,000 unit) tablet (Vitamin D3) diazepam 10 mg rectal kit 5 mg [place] DAILY PRN Seizures 01/18/21 06/29/22 01/05/22 History melatonin 1 mg tablet 1 mg feeding tube BEDTIME 01/18/21 06/29/22 04/25/22 History multivitamin 1 tab feeding tube DAILY 01/18/21 06/29/22 04/25/22 History polyethylene glycol 3350 17 17 g feeding tube DAILY 01/18/21 06/29/22 04/25/22 History gram/dose oral powder omeprazole 20 mg capsule,delayed 20 mg feeding tube DAILY@0630 01/06/22 06/29/22 05/15/22 06:00 History release wahgrtsz-nkhpqzelgv-ljtb-citAc 1 packet PO BID 04/26/22 06/29/22 04/25/22 History oral packet Exam Exam Date and Time: July 03, 2022 1045 Height,Weight and Vital Signs: Height 5 ft Weight 40.82 kg Pertinent Lab Results Pertinent Lab Results: Laboratory Tests 04/26/22 05/01/22 05:34 08:02 WBC 8.1 Hgb 15.4 D Hct 48.2 D Plt Count 273 Sodium 143 Potassium 4.3 Chloride 106 Carbon Dioxide 23 BUN 12 Creatinine 0.70 Narrative Narrative: EKG 04/2022 Vent. Rate : 146 BPM ? ? Atrial Rate : 146 BPM ?? P-R Int : 098 ms? QRS Dur : 072 ms ? ? QT Int : 270 ms ? ? ? P-R-T Axes : 049 073 016 degrees ?? QTc Int : 420 ms ? Sinus tachycardia with short MT Nonspecific T wave abnormality Abnormal ECG When compared with ECG of 05-JAN-2022 17:12, Nonspecific T wave abnormality, worse in Inferior leads Nonspecific T wave abnormality now evident in Lateral leads Assessment and Plan Assessment Anesthesia Assessment: Chart Reviewed Final Anesthetic Review Family History of Problems with Anesthesia: No History of Problems with Anesthesia: No Documented by User: Lazarus Martino MD 07/04/22 13:31 [facility] Past Medical History Medical History (Updated 06/29/22 @ 13:43 by Leslie Maravilla, RN) Cerebral palsy G tube feedings Hypercalcemia Legally blind Osteoporosis Quadriplegia Seizure disorder Tachycardia Vitamin D deficiency Wheelchair dependent Family History Family History Mother Anemia Father No problems noted. Surgical History Surgical History (Updated 06/29/22 @ 13:42 by Leslie Maravilla RN) Gastrointestinal tube present H/O adenoidectomy History of back surgery History of testicular surgery Hx of cystoscopy Hx of tonsillectomy Presence of intrathecal baclofen pump Social History Social History Household Members: Family Household Members Other:: twin 3 y.o sisters, mother, grandmother Housing: House Housing Other:: handicap accessible Are you a primary patient care technician to a significant other at home: No Do you presently have visiting nurse or other home services: Yes Alcohol intake: never Patient Tobacco Use Status: Never used Tobacco Second Hand Smoke Exposure: No Use of substances other than those prescribed or required for medical reasons: No Are you DNR?: No Advance Directives: No Advance Directives Information Provided: Yes (mom is legally guardian, paperwork on chart) Advance Directives on File: No service: No Current occupational status: disabled Meds Allergies Allergy/AdvReac Type Severity Reaction Status Date / Time amoxicillin [AMOXICILLIN] Allergy Severe RASH Verified 06/29/22 13:44 Home Medications Medication Instructions Recorded Confirmed Last Taken Type KetoVie See Rx Instructions .Route .COMPLEX 01/18/21 05/15/22 04/25/22 History baclofen 500 mcg/mL intrathecal See Rx Instructions .Route .COMPLEX 01/18/21 05/15/22 04/25/22 History solution cholecalciferol (vitamin D3) 25 25 mcg feeding tube TID 01/18/21 06/29/22 04/25/22 History mcg (1,000 unit) tablet (Vitamin D3) diazepam 10 mg rectal kit 5 mg [place] DAILY PRN Seizures 01/18/21 06/29/22 01/05/22 History melatonin 1 mg tablet 1 mg feeding tube BEDTIME 01/18/21 06/29/22 04/25/22 History multivitamin 1 tab feeding tube DAILY 01/18/21 06/29/22 04/25/22 History polyethylene glycol 3350 17 17 g feeding tube DAILY 01/18/21 06/29/22 04/25/22 History gram/dose oral powder omeprazole 20 mg capsule,delayed 20 mg feeding tube DAILY@0630 01/06/22 06/29/22 05/15/22 06:00 History release htdckemd-sxyavoaqil-nfoe-citAc 1 packet PO BID 04/26/22 06/29/22 04/25/22 History oral packet Exam Airway Mallampati Class: III TM Dist: >3cm Neck ROM: Limited Heart: rrr Lungs: clear Assessment and Plan Final Anesthetic Review NPO: Yes ASA Class: III Final Preanesthetic Review: No Changes in Pt Med Stat, Meds/Allgs Chart Reviewed, Consent Obtained/Reviewed and Anes Risks/Benef Reviewed Patient Risk: Intermediate Anesthetic Plan Anesthetic Plan: GA Disposition: Standard PACU
--- NOTE | ~2022-07-04 | XR_ITS ---
EXAMINATION: XR ABDOMEN KUB CLINICAL INDICATION: Right kidney stone COMPARISON: Abdomen CT from 04/26/2022. TECHNIQUE: AP view of the abdomen. FINDINGS: Lung bases are normal. Bowel gas pattern is normal. Enteric contrast is present within the ascending and transverse colon. The presence of the contrast interferes with evaluation of each kidney. Gastrostomy feeding tube in place. Bones are diffusely osteopenic and there is chronic dextroscoliosis and osseous fusion of the thoracolumbar spine. There is mild dysplastic deformity of the femoral heads. No acute osseous injury. XR/XR KUB IMPRESSION: The kidneys are not adequately evaluated on this abdominal radiograph due to presence of extensive enteric contrast within the colon which interferes with visualization of the kidneys.
[2022-07-04 10:36] VITALS: BP 119/87; PULSE 121; RESP 18; TEMP 36.7; O2SAT 97
[2022-07-04] MEDS: Lactated Ringers 1,000 ML 999 ML IV (10:47)
--- NOTE | 2022-07-04 12:18 | MHC.SHP ---
Pre-Procedural Eval Section A Date of Service: 07/04/22 The patient is an INPATIENT: No Section B Chief Complaint: Calculus of kidney Details of Present Illness: Zoltan is a 27 year old male with cerebral palsy, non verbal, h/o bilateral nephrolithiasis, L>R. Consent obtained from his Mother. Allergies: Allergies Allergy/AdvReac Type Severity Reaction Status Date / Time amoxicillin [AMOXICILLIN] Allergy Severe RASH Verified 06/29/22 13:44 Plan Diagnosis/Plan: Unchanged I have reviewed the history and physical and performed a pertinent physical examination on my patient. No changes have occurred unless specified. Left ESWL. Discussed risks to include but not limited to, blood in the urine, bruising to the skin, kidney hematoma, possible need for another procedure if a stone fragment obstructs the ureter while passing, possible need to repeat procedure if stone is not completely fragmented. Time Spent With Patient Time: Total time managing care of this patient today ____ minutes.
--- NOTE | 2022-07-04 13:47 | W.PM.OPN ---
Operative Note Operative Note Date of Service: 07/04/22 Narrative: PreOperative Diagnosis:? ? Left Renal stone Post Operative Diagnosis:? Left? Renal stone Procedure:?Left ESWL Surgeon:?Dr Blas Rausch Anesthesia:? General Indications for procedure: The patient understands ESWL may be a staged procedure and subsequent intervention may be required based on imaging after ESWL.? They also understand? there is a risk of bleeding to the kidney, infection, damage to adjacent organs, and stone migration following the procedure. - Imaging Fluoroscopy 9 mm left stone Procedure: After informed consent was verified the patient was brought to the operating room and placed in a supine position.? Anesthesia was performed per protocol. Safety pause time-out was performed. Imaging was displayed in the room and laterality confirmed. ESWL was performed.?The stone was visualized on both fluoroscopy and ultrasound.? Shockwave lithotripsy was performed, the first 300 shocks at 60 hertz.? A pause for 3 minutes.? A total of 2500 shocks to a maximum of power of 18 with a maximum rate of 120 hertz.? Some fragmentation of the stone was appreciated. The patient tolerated the procedure well and was transferred to the recovery area upon completion. Complications: None
[2022-07-04 13:53] VITALS: BP 128/79; PULSE 113; RESP 16; TEMP 36.1; O2SAT 100
[2022-07-04 13:58] VITALS: BP 129/82; PULSE 122; RESP 20; O2SAT 100
[2022-07-04 14:03] VITALS: BP 116/79; PULSE 124; RESP 22; O2SAT 100
[2022-07-04 14:08] VITALS: BP 124/80; PULSE 117; RESP 20; O2SAT 100
[2022-07-04 14:23] VITALS: BP 118/95; PULSE 108; RESP 20; TEMP 36.1; O2SAT 99
== END 2022-07-04 15:30 | disposition home or self-care (01) ==
PROVIDERS: PCP Internal Medicine Geriatric Medicine; Visit Provider Urology
PROC: (CPT 50590; principal; 2022-07-04 10:40)
DX: N20.0 Calculus of kidney (principal); G80.9 Cerebral palsy, unspecified; N31.9 Neuromuscular dysfunction of bladder, unspecified; G40.909 Epilepsy, unspecified, not intractable, without status epilepticus; R00.0 Tachycardia, unspecified; M81.0 Age-related osteoporosis without current pathological fracture; E55.9 Vitamin D deficiency, unspecified; R32 Unspecified urinary incontinence; Z93.1 Gastrostomy status; Z97.8 Presence of other specified devices; Z79.899 Other long term (current) drug therapy; Z88.1 Allergy status to other antibiotic agents
CPT/HCPCS: 50590; 74018; J0131; J1100; J1956; J2250; J2405; J3010

== ENCOUNTER 2023-03-05 14:25 | Outpatient (REF) | payer MEDICAID, SELFPAY ==
[2023-03-05 16:32] LABS: Anion Gap 14 (12-20); Blood Urea Nitrogen 45 mg/dL (9-16); Calcium 10.6 mg/dL (8.4-10.2); Carbon Dioxide 27 mmol/L (22-29); Chloride 111 mmol/L (96-108); Estimated Glomerular Filt Rate > 60; Glucose Random 80 mg/dL (60-115); Potassium 5.7 mmol/L (3.3-5.1); Sodium 146 mmol/L (135-145)
== END 2023-03-05 14:26 | disposition home or self-care (01) ==
LOC: HO.HHCL 14:25
PROVIDERS: Visit Provider Internal Medicine Geriatric Medicine
DX: E87.0 Hyperosmolality and hypernatremia (principal)
CPT/HCPCS: 36415; 80048

== ENCOUNTER 2023-05-29 12:32 | Outpatient (REF) | payer MEDICAID, SELFPAY ==
[2023-05-29 13:14] LABS: MANUAL DIFF FLAG NO
[2023-05-29 13:32] LABS: Basophils Percent Auto 0.5 % (0-2); Eosinophils Absolute Auto 0.5 X10*3/uL (0.0-0.4); Eosinophils Percent Auto 7.4 % (0-4); Hematocrit 46.2 % (42.0-52.0); Hemoglobin 13.7 g/dl (14.0-18.0); Imm Gran Abs Auto 0.02 X10*3/uL (0.00-0.03); Imm Gran Pct Auto 0.3 % (0.0-0.4); Lymphocytes Percent Auto 26.6 % (20-40); Mean Corpuscular HGB Conc 29.7 g/dl (31.0-36.0); Mean Corpuscular Hemoglobin 29.3 pg (27.0-33.0); Mean Corpuscular Volume 98.9 fL (80.0-98.0); Mean Platelet Volume 12.8 fL (9.4-12.4); Monocytes Absolute Auto 0.6 X10*3/uL (0.1-1.2); Monocytes Percent Auto 8.3 % (2-11); Neutrophils Absolute Auto 4.2 x10*3/uL (2.0-8.3); Neutrophils Percent Auto 56.9 % (45-73); Platelet Count 178 X10*3/uL (160-400); Red Blood Count 4.67 X10*6/uL (4.60-5.80); Red Cell Distribution Width 15.5 % (11.0-16.0); White Blood Count 7.3 X10*3/uL (4.8-10.8)
[2023-05-29 14:18] LABS: Alanine Aminotransferase 80 U/L (0-40); Albumin Level 4.3 g/dL (3.5-5.0); Alkaline Phosphatase 95 U/L (39-117); Aspartate Amino Transferase 41 U/L (5-37); Bilirubin Total 0.3 mg/dL (0.0-1.0); Blood Urea Nitrogen 66 mg/dL (9-16); Calcium 10.1 mg/dL (8.4-10.2); Estimated Glomerular Filt Rate > 60; Glucose Random 83 mg/dL (60-115)
[2023-05-29 14:25] LABS: Anion Gap 17 (12-20)
[2023-05-29 14:34] LABS: Carbon Dioxide 28 mmol/L (22-29); Chloride 121 mmol/L (96-108); Potassium 4.2 mmol/L (3.3-5.1); Sodium 162 mmol/L (135-145)
== END 2023-05-29 12:33 | disposition home or self-care (01) ==
LOC: HO.HHCL 12:32
PROVIDERS: Visit Provider Internal Medicine Geriatric Medicine
DX: N17.9 Acute kidney failure, unspecified (principal); E87.0 Hyperosmolality and hypernatremia; Z93.1 Gastrostomy status
CPT/HCPCS: 36415; 80053; 85025

== ENCOUNTER 2023-08-06 12:19 | Outpatient (REF) | payer MEDICAID, SELFPAY ==
[2023-08-06 14:17] LABS: Anion Gap 17 (12-20); Blood Urea Nitrogen 41 mg/dL (9-16); Calcium 10.4 mg/dL (8.4-10.2); Carbon Dioxide 24 mmol/L (22-29); Chloride 111 mmol/L (96-108); Estimated Glomerular Filt Rate > 60; Glucose Random 74 mg/dL (60-115); Potassium 4.7 mmol/L (3.3-5.1); Sodium 147 mmol/L (135-145)
== END 2023-08-06 12:20 | disposition home or self-care (01) ==
LOC: HO.HHCL 12:19
PROVIDERS: Visit Provider Internal Medicine Geriatric Medicine
DX: E87.0 Hyperosmolality and hypernatremia (principal)
CPT/HCPCS: 36415; 80048

== ENCOUNTER 2024-07-20 14:08 | Outpatient (REF) | payer MEDICAID, SELFPAY ==
--- OUTSIDE RECORDS SUMMARY | 2024-07-20 15:42 | XMS_ITS | Encounter Summary ---
Author Organization [facility], Address [address] [place] [address] Phone Care Team Providers Care Manager Nicu Name Role Phone Name, Aneudy YANEZ Primary Care Provider [phone] Encounter Details Date Type Department Care Team (Late st Contact Info) Description 07/27/2021 Documentation Only [facility], [address] [place] [address] Name, MD Aneud[address] [place] [address] Social History Tobacco Use Types Packs/Day Years Used Date Smoking Tobacco: Never Assessed Sex and Gender Information Value Date Recorded Sex Assigned at Not on file Legal Sex Male 9:44 AM EDT Gender Identity Not on file Sexual Orientation Not on file documented as of this encounter Plan of Treatment Not on file documented as of this encounter Visit Diagnoses Not on filedocumented in this encounter Care Teams Manager Nicu Relationship Specialty Start Date End Date Name, MD Aneud[address] [place] [address] PCP - General Internal Medicine 07/27/21 documented as of this encounter
--- OUTSIDE RECORDS SUMMARY | 2024-07-20 15:42 | XMS_ITS | Encounter Summary ---
Author Organization [employer] Address [address] [facility] [address] [place] [address] Care Team Providers Care Senior Cobol Developer Name Role Phone Name, Aneudy YANEZ Primary Care Provider [phone] Reason for Visit * Reason Onset Date Comments Durable Medical Equipment 07/20/2024 Incont inence wipes Encounter Details Date Type Department Care Team ([facility] st Contact Info) Description 07/20/2024 Telephone [facility] MEDICINE [address] [place] [address] Name, MD Aneudy [address] [place], [place] [phone] Durable Medical Equipment (Incontinence wipes) Social History Tobacco Use Types Packs/Day Years Used Date Smoking Tobacco: Never Smokeless Tobacco: Never Alcohol Use Standard Drinks/Week Comments Never 0 (1 standard drink = 0.6 oz pur e alcohol) Depression Answer Date Recorded Patient Health Questionnaire-9 Score 0 07/20/2024 Patient Health Questionnaire-9 Score 0 07/20/2024 Last PHQ-9: Questionnaire Data Not on file 0 07/20/2024 Housing Stability Answer Date Recorded What is your housing situation today? I have eugene prajapati 07/20/[address] you li ve. Do you have problems with any of the following? None of the above 07/20/2024 Food Insecurity Answer Date Recorded Within the past 12 months, y ou worried that your food would run out before you got money to buy more: Never True 07/20/2024 Within the past 12 months,th e food you bought just didn't last and you didn't have enough money to get more: Never True 07/2024 Transportation Answer Date Recorded In the past 12 months, has l ack of transportation kept you from medical appts, meetings, work or from getting things needed for daily living? No 07/20/2024 Utilities Answer Date Recorded In the past 12 months, has t he electric, gas, oil or water company threatened to shut off services in your home? No 07/20/2024 Depression Answer Date Recorded Patient Health Questionnaire-2 Score 0 07/20/2024 Internet Access Answer Date Recorded Internet Access Q1 Yes 07/20/2024 Internet Access Q2 Not on file 07/20/2024 Sex and Gender Information Value Date Recorded Sex Assigned at Male 01/15/2022 10:34 AM EDT Legal Sex Male 10:34 AM EDT Gender Identity Male 01/15/2022 10:34 AM EDT Sexual Orientation Straight 01/15/2022 10 :34 AM EDT documented as of this encounter Miscellaneous Notes * Telephone Encounter - Brianda Desai - 07/20/2024 3:36 PM EDT MH does not cover wipes. Call to pt to inform, no answer. If pt calls, please inform MH does not cover wipes. * Telephone Encounter - Brianda Desai - 07/20/2024 3:36 PM EDT ----- Message from Aneudy Balderas MD sent at 07/20/2024 3:13 PM EDT ----- Hi, this patient has total incontinence. Family requested wipes documented in this encounter Plan of Treatment Upcoming Encounters Date Type Department Care Team (Late st Contact Info) Description 11/11/2024 2:15 PM EDT Office Visit [facility] MEDICINE [address] [place] [address] Name, MD Aneudy [address] [place] [address] documented as of this encounter Visit Diagnoses Not on filedocumented in this encounter Additional Health Concerns Assessment Noted Time PHQ-9 Depression Total Score: 0 07/21/19 25 1:43 PM EDT documented as of this encounter Care Teams Senior Cobol Developer Relationship Specialty Start Date End Date NameAneudy MD [address] [place] [address] PCP - General Family Medicine 03/31/18 documented as of this encounter
--- OUTSIDE RECORDS SUMMARY | 2024-07-20 15:42 | XMS_ITS | Clinical Summary ---
Author Organization [facility], Address [address] [place] [address] [place] [address] Phone Care Team Providers Care Manager Ethics Name Role Phone Name, Aneudy AYNEZ Primary Care Provider [phone] Allergies Active Allergy Reactions Criticality Noted Date Comments Amoxicillin Rash Low 09/28/2021 Other reaction(s): hives Medications diazePAM (DIASTAT ACUDIAL) 10 MG rectal kit DIASTAT ACUDIAL; 7.5 mg NE as needed for seizure; 5 MG-7.5 MG-10 MG; 07/25/2010; Active 7 Active lansoprazole (PREVACID) [address] capsule Take 1 capsule by mouth 1 (one) time each day 7 Active magnesium oxide (MAG-OX) 400 MG tablet Take 1 tablet by mouth 1 (one) time each day 7 Active polyethylene glycol (GLYCOLAX) 17 GM/SCOOP powder Take by mouth 0 Active Sodium Bicarbonate powder One half teaspoon as baking Soda twice a day 8 Active sulfamethoxazole -trimethoprim 800-160 MG per tablet TAKE 1 TABLET BY MOUTH EVERY TWELVE HOURS UNTIL FINISHED 2 Active zonisamide (ZONEGRAN) 100 MG capsule Take 100 mg by mouth 8 Active levOCARNitine (CARNITOR) 330 MG tablet TAKE 2 TABLETS BY MOUTH ONCE DAILY IN THE MORNING and TAKE 3 TABLETS BY MOUTH EVERY EVENING via Gtube 2 Active cholecalciferol (VITAMIN D-3) 25 MCG (1000 UT) capsule Take 1 capsule by mouth in the morning and 1 capsule at noon and 1 capsule in the evening. 7 Active Active Problems Problem Noted Date Diagnosed Date Hypernatremia 09/28/2021 Vitamin D deficiency 09/28/2021 Renal stone 12/28/2016 Overview (09/28/2021): Stable. Followed at [facility] with US every 6 months. Immunizations Immunization Administration Dates Next Due DTP 01/19/2000, 7,02/26/1996,11/06,1995 H1N1 All Forms 03/08/2009 HPV, Quadrivalent 11/25/2013,01/21/2013,11/21/19 13 Hep A, 2 Dose 11/25/2013,07/25/2010 Hep B, Adolescent or Pediatric 02/26/1996,1995,1995 Hib (PRP-T) 10/27/1996, 6,1995,09/04 Influenza Split 12/12/2011,11/29/2010,11/22/2009 Influenza TIV (IM) 12/31/2008, 8,01/22/2007,02/01,12/28/2003,01/19/2000 Influenza, Quadrivalent, Pre servative Free 06/10/2017,12/01/2014,11/25/2013,12/04 Influenza, Quadrivalent, Wit h Preservative 01/09/2016 MMR 01/19/2000,07/27/1996 Meningococcal MCV4P 12/01/2014,03/27/2007 OPV 01/19/2000, 6,1995,09/04 Tdap 06/15/2016,03/27/2007 Varicella 03/27/2007,07/27/1996 Social History Tobacco Use Types Packs/Day Years Used Date Smoking Tobacco: Never Assessed Sex and Gender Information Value Date Recorded Sex Assigned at Not on file Legal Sex Male 9:44 AM EDT Gender Identity Not on file Sexual Orientation Not on file Plan of Treatment Health Maintenance Due Date Last Done Comments Influenza Vaccine (Season Ended) 2024 02/10/2019, 03/31/2018, 06/10/2017, Additional history exists Hepatitis B Vaccine Completed 02/26/1996, 02/26/1996, 1995, Additional history exists Pneumococcal Vaccine: Peds (0 to 5 Years) and At-Risk Patients (6 to 49 Years) Aged Out No longer eligi ble based on patient's age to complete this topic Insurance Medicaid [place] Member Subscriber Plan / Payer (Ef fective 2021-Present) Name:Zoltan Ramos Jr. Relation to Subscriber:Self Name:Zoltan Ramos Jr. Payer ID:Not on file Group ID:Not on file Type:Not on file Address: [address] Medicaid [place] Member Subscriber Plan / Payer (Ef fective 2021-Present) Name:Zoltan Ramos Jr. Relation to Subscriber:Self Name:Zoltan Ramos Jr. Payer ID:Not on file Group ID:Not on file Type:Not on file Address: [address] Care Teams Manager Ethics Relationship Specialty Start Date End Date Name, MD Aneudy [address] [place] [id number] PCP - General Internal Medicine 07/27/21
--- OUTSIDE RECORDS SUMMARY | 2024-07-20 15:42 | XMS_ITS | Encounter Summary ---
Author Organization [employer] Address [address] [facility] 7[address] [place] [address] Care Team Providers Care Casket Inspector Name Role Phone Name, Aneudy YANEZ Primary Care Provider [phone] Reason for Visit * Reason Onset Date Comments FYI 04/17/2023 Encounter Details Date Type Department Care Team (Late st Contact Info) Description 04/17/2023 Telephone [facility] MEDICINE [address] [place] [address] Name, MD Aneudy [address] [place], [place] [phone] FYI Social History Tobacco Use Types Packs/Day Years Used Date Smoking Tobacco: Never Smokeless Tobacco: Never Alcohol Use Standard Drinks/Week Comments Never 0 (1 standard drink = 0.6 oz pur e alcohol) Housing Stability Answer Date Recorded What is your housing situation today? I have housing today, but I am worried about losing housing in the future 03/22/[address] you li ve. Do you have problems with any of the following? None of the above 03/22/2023 Food Insecurity Answer Date Recorded Within the past 12 months, y ou worried that your food would run out before you got money to buy more: Never True 01/17/2023 Within the past 12 months,th e food you bought just didn't last and you didn't have enough money to get more: Never True 04/2022 Transportation Answer Date Recorded In the past 12 months, has l ack of transportation kept you from medical appts, meetings, work or from getting things needed for daily living? No 01/17/2023 Utilities Answer Date Recorded In the past 12 months, has t he electric, gas, oil or water company threatened to shut off services in your home? No 01/17/2023 Depression Answer Date Recorded Patient Health Questionnaire-2 Score 0 05/22/2022 Sex and Gender Information Value Date Recorded Sex Assigned at Male 01/15/2022 10:34 AM EDT Legal Sex Male 10:34 AM EDT Gender Identity Male 01/15/2022 10:34 AM EDT Sexual Orientation Straight 01/15/2022 10 :34 AM EDT documented as of this encounter Miscellaneous Notes * Telephone Encounter - Channing Ceron RN - 04/17/2023 4:13 PM EST Please review and advise for below message, pt. Has last office visit on 03/05/2023. * Telephone Encounter - Dewayne Dubose - 04/17/2023 11:31 AM EST TC from Marsha at [facility] calling to notify the PCP that is unable to fill script for asuction machine without new office notes documented in this encounter Plan of Treatment Upcoming Encounters Date Type Department Care Team (Late st Contact Info) Description 11/11/2024 2:15 PM EDT Office Visit [facility] MEDICINE [address] [place] [address] Name, MD Aneudy [address] [place] [phone] documented as of this encounter Visit Diagnoses Not on filedocumented in this encounter Care Teams Casket Inspector Relationship Specialty Start Date End Date Name, MD Aneudy [address] [place] [id number] PCP - General Family Medicine 03/31/18 documented as of this encounter
--- OUTSIDE RECORDS SUMMARY | 2024-07-20 15:42 | XMS_ITS | Clinical Summary ---
Author Organization [facility] Address [address] [facility] 7t [place] [address] Care Team Providers Care Truck Loader Overhead Crane Name Role Phone Name, Aneudy YANEZ Primary Care Provider Allergies Active Allergy Reactions Criticality Noted Date Comments Amoxicillin Rash,Hives High 03/31/2018 Other reaction(s): Hives / Skin Rash Other reaction(s): hives Other 02/05/2023 Other reaction(s): rash, spaghetti sauce pt allergic to spaghetti sauceno suspensions with sugar, on ketogenic diet Medications albuterol (2.5 MG/3ML) 0.083% nebulizer solutionIndicat ions:Acute cough,Recurrent vomiting,Tetrap legic cerebral palsy (CMS/HCC) Take 3 mL (2.5 mg) by nebulization every 4 (four) hours if needed for wheezing. 75 mL 3 05/23/19 23 Active Multiple Vitamins-Minera ls (Centrum Adults) tablet every other day 30 tablet 11 03/05/20 23 Active levETIRAcetam (Keppra) 500 MG tablet TAKE 1 TABLET VIA J- TUBE TWO TIMES A DAY 60 tablet 11 03/05/20 23 Active omeprazole OTC (PriLOSEC OTC) 20 MG EC tablet Take 1 tablet (20 mg) by mouth before breakfast. 30 tablet 11 03/05/20 23 Active baclofen (Lioresal) 10 MG/20ML intrathecal injection 025 Discontin ued(Ineff ective) Active Problems Problem Noted Date Diagnosed Date Dyspnea 08/06/2023 Esophagitis 08/06/2023 Renal calculi 08/06/2023 Encephalopathy 08/06/2023 Constipation 08/06/2023 Jejunostomy tube present 08/06/2023 Spastic tetraplegic cerebral palsy 08/06/[address] 08/06/2023 Tachycardia 05/30/2023 Chronic constipation 05/29/2023 Class 1 obesity 04/11/2023 04/11/2023 Mental disorder 02/05/2023 02/05/2023 Acquired scoliosis 10/01/2022 Cerebral palsy 10/01/2022 Complex partial seizure 10/01/2022 Hydronephrosis with renal calculous obstruction 10/01/2022 Hypercalcemia 10/01/2022 Left ureteral calculus 10/01/2022 Neurogenic bladder 10/01/2022 Osteoporosis 10/01/2022 Underweight 10/01/2022 Ureteral stent present 10/01/2022 Blindness of both eyes 05/22/2022 Intellectual disability 05/22/2022 Osteopenia 02/05/2022 Vitamin D deficiency 09/28/2021 Hypernatremia 09/28/2021 Blindness 03/31/2018 Epilepsy, not refractory 03/31/2018 Gastrostomy present 03/31/2018 Status post insertion of intrathecal baclofen pu mp 03/31/2018 Tetraplegic cerebral palsy 03/31/2018 Urinary incontinence 03/31/2018 Patient on ketogenic diet 03/31/2018 Calculus of kidney 12/28/2016 Overview (10/01/2022): Stable. Followed at [facility] with US every 6 months. Encounters Date Type Department Care Team Description 07/20/2024 1:00 PM EDT Office Visit [facility] MEDICINE [address] [place] [phone] NameAneudy MD Spastic tetraplegic cerebral palsy (CMS/HCC) (Primary Dx); Jejunostomy tube present (CMS/HCC); Constipation, unspecified constipation type; Complex partial seizure (CMS/HCC); Total incontinence 07/20/2024 Telephone [facility] MEDICINE [address] [place] [phone] NameAneudy MD Durable Medical Equipment (Incontinence wipes) 07/20/2024 Travel 07/17/2024 Telephone [facility] MEDICINE [address] [place] [address] Fred Castellon MA chart prep 07/07/2024 Patient Outreach [facility] [address] [place] [address] Name, MD Aneudy Pre-visit Planning (SDOH will need to be completed in office) 05/29/2024 Population Health Risk Score [facility] () Department [address] [place] [phone] Provider, Population Health Generic from Last 3 Months Immunizations Name Administration Dates Next Due DTP 01/19/2000, 7,02/26/1996,11/06,1995 DTaP 01/19/2000, 7,02/26/1996,11/06,1995 HPV 9-Valent 11/25/2013,11/20/2012 HPV, Quadrivalent 11/25/2013,01/21/2013,11/21/19 13 HPV, Unspecified 01/21/2013 Hep A, Adult 11/25/2013,07/25/2010 Hep A, ped/adol, 2 dose 11/25/2013,07/25/2010 Hep B, Adolescent or Pediatric 02/26/1996,1995,1995 Hep B, adult 02/26/1996,1995,1995 HiB, unspecified 10/27/1996,02/26/1996, 6 Hib (PRP-T) 10/27/1996, 6,1995,09/04 Influenza injectable quadriv alent IIV4 with preservative 01/09/2016 Influenza injectable quadriv alent preservative free 02/08/2023,01/23/2022,02/10/2019,03/31,06/10/2017,12/01/2014,11/25/2013 ,12/04/2012 Influenza, IIV3, injectable 12/31/2008,1 ,01/22/2007,02/01,12/28/2003,01/19/2000 Influenza, Split (incl. gómez fied surface antigen) 01/09/2016,12/01/2014,11/25/2013,12/04,12/12/2011,11/29/2010,11/22/2009 Influenza, intradermal, quad rivalent, preservative free 12/12/2011,11/29/2010,11/22/2009,12/31,01/07/2008,01/22/2007,02/01/2006 ,12/28/2003,01/19/2000 Bryan SARS-CoV-2 Vaccination 06/27/2020 MMR 01/19/2000,07/27/1996 Meningococcal MCV4, Unspecified 12/01/2014 Meningococcal MCV4P [id number] 12/01/2014,03/27/19 08 Novel [id number], all formulations 03/08/2009 OPV, Trivalent 01/19/2000, 6,1995,09/04 Pfizer Covid-19 Vaccine 12+ 06/21/2021 Pfizer Covid-19 Vaccine 12+ deedee-sucrose (Wall Cap) 06/21/2021 Pneumococcal Conjugate PCV 20 03/05/2023 Polio, Unspecified 01/19/2000, 6,1995,09/04 Tdap 06/15/2016,03/27/2007 Varicella 03/27/2007,07/27/1996 Social History Tobacco Use Types Packs/Day Years Used Date Smoking Tobacco: Never Smokeless Tobacco: Never Tobacco Cessation:Counseling Given: Not Answered Alcohol Use Standard Drinks/Week Comments Never 0 [...] Orientation Straight 01/15/2022 10 :34 AM EDT Last Filed Vital Signs Vital Sign Reading Time Taken Comments Blood Pressure 88/50 07/20/2024 1:41 PM EDT Pulse 82 07/20/2024 1:41 PM EDT Temperature 35.9 ??C (96.6 ??F) 07/20/2024 1:41 PM ED T Respiratory Rate 20 07/20/2024 1:41 PM EDT Oxygen Saturation 98% 08/06/2023 11:25 AM EDT Inhaled Oxygen Concentration - - Weight - - Height 152.4 cm (5') 08/06/2023 11:25 AM EDT Body Mass Index - - Plan of Treatment Upcoming Encounters Date Type Department Care Team (Late st Contact Info) Description 11/11/2024 2:15 PM EDT Office Visit [facility] MEDICINE [address] [place] [phone] Name, MD Aneduy [address] [place] [address] Health Maintenance Due Date Last Done Comments HIV Screening 1995 Family Planning (PISQ) 06/23/2010 Hepatitis C Screening 06/23/2013 COVID-19 Vaccine ( season) 2023 06/21/2021, 06/21/2021, 06/27/2020 Influenza Vaccine (#1) 2023 3, 01/23/2022, 02/10/2019, Additional history exists SDOH Screening 07/20/2025 07/20/2024 Tobacco Screening 07/20/2025 07/20/2024 DTaP/Tdap/Td Vaccines (8 - Td or Tdap) 06/15/2026 06/15/2016, 03/27/2007, 01/19/2000, Additional history exists Zoster Vaccines (1 of 2) 06/23/2045 RSV Patients and Patients Aged 60 years or older (1 - 1-dose 75+ series) 06/23/2070 Hepatitis B Vaccines Completed 02/26/1996, 02/26/1996, 1995, Additional history exists HIB Vaccines Completed 10/27/1996, 10/16, 02/26/1996, Additional history exists IPV Vaccines Completed 01/19/2000, 05/1999, 02/26/1996, Additional history exists HPV Vaccines Completed 11/25/2013, 11/16, 01/21/2013, Additional history exists Hepatitis A Vaccines Completed 11/25/2013, 11/25/2013, 07/25/2010, Additional history exists Meningococcal Vaccine Aged Out 12/01/2014 , 12/01/2014, 03/27/2007 No longer eligible based on patient's age to complete this topic Pneumococcal Vaccine: Pediatrics (0 to 5 Years) and At-Risk Patients (6 to 49) Years) Aged Out 03/05/2023 No longer eligible based on patient's age to complete this topic Depression Screening Discontinued 07/20/2024, 07/21/19 25 Alcohol/Substance Use Screening Discontinued RSV under 20 months Aged Out No longe r eligible based on patient's age to complete this topic Rotavirus Vaccines Aged Out No longer eligible based on patient's age to complete this topic Insurance [address] [place] [address] [facility] Care Teams Truck Loader Overhead Crane Relationship Specialty Start Date End Date Name, MD Aneudy [address] [place] [phone] PCP - General Family Medicine 03/31/18
--- OUTSIDE RECORDS SUMMARY | 2024-07-20 15:42 | XMS_ITS | Encounter Summary ---
Author Organization [employer] [facility] Address [address] [facility] 7t [place] [address] Care Team Providers Care Denture Packer Name Role Phone Name, Aneudy YANEZ Primary Care Provider [phone] Reason for Visit * Reason Comments Annual Exam Encounter Details Date Type Department Care Team (Late st Contact Info) Description 07/20/2024 1:00 PM EDT Office Visit [facility] MEDICINE [address] [place], [place] [phone] Name, MD Aneudy [address] [place], [place] [phone] Spastic tetraplegic cerebral palsy (CMS/HCC) (Primary Dx); Jejunostomy tube present (CMS/HCC); Constipation, unspecified constipation type; Complex partial seizure (CMS/HCC); Total incontinence Social History Tobacco Use Types Packs/Day Years [...] AM EDT documented as of this encounter Last Filed Vital Signs Vital Sign Reading Time Taken Comments Blood Pressure 88/50 07/20/2024 1:41 PM EDT Pulse 82 07/20/2024 1:41 PM EDT Temperature 35.9 ??C (96.6 ??F) 07/20/2024 1:41 PM ED T Respiratory Rate 20 07/20/2024 1:41 PM EDT Oxygen Saturation - - Inhaled Oxygen Concentration - - Weight - - Height - - Body Mass Index - - documented in this encounter Progress Notes * Aneudy Balderas MD - 07/20/2024 1:00 PM EDT Subjective Patient ID: Zoltan Ramos is a 29 y.o. male who presents for Annual Exam. Patient comes for a follow-up visit accompanied by his father. Patient has severe intellectual disability, he is nonverbal, he has cerebral palsy, spastic quadriplegia, he is wheelchair-bound. He hasseizure disorder. He is dependent on J-tube feeds. Father tells me his seizures are well-controlled. The patient has been receiving tube feeds and supplemental water consistently. He is J-tube was recently changed. Patient has chronic constipation and his father adds MiraLAX to the J-tube feeds andhe occasionally requires manual disimpaction performed by his family. There has not been any recentvomiting according to his father. His father is concerned that he is not gaining much weight and hewonders if the tube feeds are providing enough nutrition. Review of Systems Constitutional: Patient is nonverbal. Review of system is obtained from the father. Respiratory: Negative for cough. Gastrointestinal: Negative for blood in stool and vomiting. Neurological: Negative for seizures. Visit Vitals BP 88/50 (BP Location: Left arm, Patient Position: Sitting, BP Cuff Size: Adult) Pulse 82 Temp 96.6 ??F (35.9 ??C) (Temporal) Resp 20 Smoking Status Never Objective Physical Exam Vitals reviewed: Patient is examined in his wheelchair. Cardiovascular: Rate and Rhythm: Normal rate and regular rhythm. Heart sounds: No murmur heard. Pulmonary: Effort: Pulmonary effort is normal. No respiratory distress. Abdominal: General: There is no distension. Tenderness: There is no abdominal tenderness. Comments: J-tube feeding in place Neurological: Mental Status: Mental status is at baseline. Comments: Spastic quadriparesis. Patient neck is turned to the left at his baseline. Assessment/Plan Diagnoses and all orders for this visit: Spastic tetraplegic cerebral palsy (CMS/HCC) Comments: Father requested wipes to facilitate cleaning since the patient is incontinent of urine and stool. G-tube seems to be working fine. I will check blood work listed below. Possible referral to nutrition and based on the results in case albumin and prealbumin are low or if sodium turns out to be high. Father tells me seizures are well-controlled on current dose of Keppra. Continue MiraLAX for constipation. Orders: - CBC auto differential; Future - Comprehensive Metabolic Panel; Future Jejunostomy tube present (CMS/HCC) - CBC auto differential; Future - Comprehensive Metabolic Panel; Future - Prealbumin; Future Constipation, unspecified constipation type - CBC auto differential; Future - Comprehensive Metabolic Panel; Future Complex partial seizure (CMS/HCC) - CBC auto differential; Future - Comprehensive Metabolic Panel; Future documented in this encounter Plan of Treatment Upcoming Encounters Date Type Department Care Team (Late st Contact Info) Description 11/11/2024 2:15 PM EDT Office Visit [facility] MEDICINE [address] [place] [address] Name, MD Aneudy [address] [place] [address] Scheduled Orders Name Type Priority Associated Diagnoses Orde r Schedule CBC auto differential Lab Routine Spastic tetraplegic cerebral palsy (CMS/HCC) Jejunostomy tube present (CMS/HCC) Constipation, unspecified constipation type Complex partial seizure (CMS/HCC) Expected: 07/20/2024 (Approximate), Expires: 07/20/2025 Comprehensive Metabolic Panel Lab Routine Spastic tetraplegic cerebral palsy (CMS/HCC) Jejunostomy tube present (CMS/HCC) Constipation, unspecified constipation type Complex partial seizure (CMS/HCC) Expected: 07/20/2024 (Approximate), Expires: 07/20/2025 Prealbumin Lab Routine Jejunostomy tube present (CMS/HCC) Expected: 07/20/2024, Expires: 07/20/2025 documented as of this encounter Visit Diagnoses Diagnosis Spastic tetraplegic cerebral palsy (CMS/HCC)- Primary Jejunostomy tube present (CMS/HCC) Constipation, unspecified constipation type Complex partial seizure (CMS/HCC) Total incontinence documented in this encounter Additional Health Concerns Assessment Noted Time PHQ-9 Depression Total Score: 0 07/21/19 25 1:43 PM EDT documented as of this encounter Care Teams Denture Packer Relationship Specialty Start Date End Date Name, MD Aneudy [address] [place] [address] PCP - General Family Medicine 03/31/18 documented as of this encounter
--- OUTSIDE RECORDS SUMMARY | 2024-07-20 15:42 | XMS_ITS | Encounter Summary ---
Author Organization [employer] Address [address] [facility] 7[address] [place] [address] Care Team Providers Care Hand Shoes Sewer Name Role Phone Name, Aneudy YANEZ Primary Care Provider [phone] Encounter Details Date Type Department Care Team (Late st Contact Info) Description 02/19/2023 Telephone [facility] MEDICINE [address] [place] [address] Name, MD Aneudy [address] [place] [address] Social History Tobacco Use Types Packs/Day Years Used Date Smoking Tobacco: Never Smokeless Tobacco: Never Alcohol Use Standard Drinks/Week Comments Never 0 (1 standard drink = 0.6 oz pur e alcohol) Housing Stability Answer Date Recorded What is your housing situation today? I have eugene prajapati 01/17/[address] you li ve. Do you have problems with any of the following? None of the above 01/17/2023 Food Insecurity Answer Date Recorded Within the [...] Telephone Encounter - Channing Ceron RN - 02/20/2023 3:33 PM EST Notes printed and given to PCP. * Telephone Encounter - Channing Ceron RN - 02/19/2023 3:14 PM EST FYI * Telephone Encounter - Venecia Blair - 02/19/2023 3:11 PM EST Tc from Raad with [facility] calling to inform PCP pt is refusing to VNA services. Any questions please call Raad [phone] documented in this encounter Plan of Treatment Upcoming Encounters Date Type Department Care Team (Late st Contact Info) Description 11/11/2024 2:15 PM EDT Office Visit [facility] MEDICINE [address] [place] [phone] Name, MD Aneudy [address] [place] [address] documented as of this encounter Visit Diagnoses Not on filedocumented in this encounter Care Teams Hand Shoes Sewer Relationship Specialty Start Date End Date Name, MD Aneudy [address] [place] [address] PCP - General Family Medicine 03/31/18 documented as of this encounter
--- OUTSIDE RECORDS SUMMARY | 2024-07-20 15:42 | XMS_ITS | Encounter Summary ---
Author Organization [employer] Address [address] [facility] 7t [place] [address] Care Team Providers Care Spanish Literature Professor Name Role Phone Name, Aneudy YANEZ Primary Care Provider [phone] Encounter Details Date Type Department Care Team (Late st Contact Info) Description 04/03/2023 Telephone [facility] MEDICINE [address] [place] [address] Name, MD Aneudy [address] [place] [address] Social History Tobacco Use Types Packs/Day Years [...] AM EDT documented as of this encounter Plan of Treatment Upcoming Encounters Date Type Department Care Team (Late st Contact Info) Description 11/11/2024 2:15 PM EDT Office Visit [facility] MEDICINE [address] [place] [address] Name, MD Aneudy [address] [place] [phone] documented as of this encounter Visit Diagnoses Not on filedocumented in this encounter Care Teams Spanish Literature Professor Relationship Specialty Start Date End Date Name, MD Aneudy [address] [place] [id number] PCP - General Family Medicine 03/31/18 documented as of this encounter
--- OUTSIDE RECORDS SUMMARY | 2024-07-20 15:42 | XMS_ITS | Encounter Summary ---
Author Organization [employer] Address [address] [facility] [address]t [place] [address] Care Team Providers Care Farm Equipment Mechanic Apprentice Name Role Phone Name, Aneudy YANEZ Primary Care Provider [phone] Encounter Details Date Type Department Care Team (Latest Contact Info) Description 07/20/2024 Travel Social History Tobacco Use Types Packs/Day Years [...] Description 11/11/2024 2:15 PM EDT Office Visit [facility] MEDICINE [address] [place] [address] Name, MD Aneudy [address] [place] [address] documented as of this encounter Visit Diagnoses Not on filedocumented in this encounter Additional Health Concerns Assessment Noted Time PHQ-9 Depression Total Score: 0 07/21/19 25 1:43 PM EDT documented as of this encounter Care Teams Farm Equipment Mechanic Apprentice Relationship Specialty Start Date End Date Name, MD Aneudy [address] [place] [phone] PCP - General Family Medicine 03/31/18 documented as of this encounter
--- OUTSIDE RECORDS SUMMARY | 2024-07-20 15:42 | XMS_ITS | Encounter Summary ---
Author Organization [employer] Address [address] [facility] [address]t [place] [address] Care Team Providers Care Parts Assembler Name Role Phone Name, Aneudy YANEZ Primary Care Provider [phone] Reason for Visit * Reason Onset Date Comments chart prep 07/17/2024 Encounter Details Date Type Department Care Team (Late st Contact Info) Description 07/17/2024 Telephone [facility] MEDICINE [address] [place], [place] [phone] Fred Castellon MA chart prep Social History Tobacco Use Types Packs/Day Years [...] encounter Miscellaneous Notes * Telephone Encounter - Fred Castellon MA - 07/17/2024 12:50 PM EDT Chart Prep Labs: done Images: done Referrals: not applicable Vaccines due: Covid and Flu Screenings: not applicable Overdue care gaps: SBIRT, SDOH, PHQ-9, DESHAWN-7, Oral health screening, and Disability screen documented in this encounter Plan of Treatment Upcoming Encounters Date Type Department Care Team (Late st Contact Info) Description 11/11/2024 2:15 PM EDT Office Visit [facility] MEDICINE [address] [place] [phone] Name, MD Aneudy [address] [place] [address] documented as of this encounter Visit Diagnoses Not on filedocumented in this encounter Care Teams Parts Assembler Relationship Specialty Start Date End Date Aneudy Balderas MD [address] [place] [phone] PCP - General Family Medicine 03/31/18 documented as of this encounter
[2024-07-20 16:15] LABS: MANUAL DIFF FLAG NO
[2024-07-20 16:23] LABS: Basophils Percent Auto 0.3 % (0-2); Eosinophils Absolute Auto 0.4 X10*3/uL (0.0-0.4); Eosinophils Percent Auto 3.8 % (0-4); Hematocrit 44.9 % (42.0-52.0); Hemoglobin 15.1 g/dl (14.0-18.0); Imm Gran Abs Auto 0.09 X10*3/uL (0.00-0.03); Imm Gran Pct Auto 0.9 % (0.0-0.4); Lymphocytes Absolute Auto 1.2 X10*3/uL (1.2-4.9); Lymphocytes Percent Auto 12.5 % (20-40); Mean Corpuscular HGB Conc 33.6 g/dl (31.0-36.0); Mean Corpuscular Hemoglobin 29.8 pg (27.0-33.0); Mean Corpuscular Volume 88.7 fL (80.0-98.0); Monocytes Absolute Auto 0.6 X10*3/uL (0.1-1.2); Monocytes Percent Auto 5.7 % (2-11); Neutrophils Absolute Auto 7.5 x10*3/uL (2.0-8.3); Neutrophils Percent Auto 76.8 % (45-73); Platelet Count 189 X10*3/uL (160-400); Red Blood Count 5.06 X10*6/uL (4.60-5.80); Red Cell Distribution Width 13.6 % (11.0-16.0); White Blood Count 9.8 X10*3/uL (4.8-10.8)
[2024-07-20 16:38] LABS: Alanine Aminotransferase 32 U/L (0-40); Albumin Level 4.7 g/dL (3.5-5.0); Anion Gap 15 (12-20); Aspartate Amino Transferase 31 U/L (5-37); Bilirubin Total 0.4 mg/dL (0.0-1.0); Blood Urea Nitrogen 35 mg/dL (9-16); Calcium 10.3 mg/dL (8.4-10.2); Carbon Dioxide 27 mmol/L (22-29); Chloride 103 mmol/L (96-108); Estimated Glomerular Filt Rate > 60; Glucose Random 93 mg/dL (60-115); Potassium 3.9 mmol/L (3.3-5.1); Sodium 141 mmol/L (135-145); Total Protein 8.1 g/dL (6.5-8.0)
[2024-07-20 16:50] LABS: Alkaline Phosphatase 106 U/L (39-117)
== END 2024-07-20 14:09 | disposition home or self-care (01) ==
LOC: HO.HHCL 14:08
PROVIDERS: Visit Provider Internal Medicine Geriatric Medicine
DX: G80.0 Spastic quadriplegic cerebral palsy (principal); K59.00 Constipation, unspecified; G40.209 Localization-related (focal) (partial) symptomatic epilepsy and epileptic syndromes with complex partial seizures, not intractable, without status epilepticus; Z93.4 Other artificial openings of gastrointestinal tract status
CPT/HCPCS: 36415; 80053; 84134; 85025